=== PATIENT | male | born 1940 | race Caucasian/White ===

== ENCOUNTER 2018-12-05 12:43 | Emergency (ER) | payer OTHER, BC ==
--- NOTE | 2018-12-05 14:08 | RAD REPORT ---
EXAM DESCRIPTION: RAD - Wrist Right 3 View - 12/05/2018 2:00 pm CLINICAL HISTORY: PAIN Trauma, pain and swelling COMPARISON: None FINDINGS: Right wrist and right hand- multiple projections are submitted Scattered areas of moderate osteoarthritic changes seen. No acute fractures demonstrated. Moderate so ft tissue swelling is seen along the dorsum of the wrist and hand. IMPRESSION: No acute fracture is visualized.
[2018-12-05] MEDS ORDERED: TETANUS & DIPHTHERIA TOX,ADULT 0.5 ML VIAL ONE (15:19)
--- NOTE | 2018-12-05 15:26 | ER ---
Nurse's Notes [facility] Name: Marc Dillard Age: 78 yrs Sex: Male : 1940 Arrival Date: 12/05/2018 Time: 12:46 Bed 9 Private MD: Diagnosis: Sprain of unspecified part of unspecified wrist and hand;Finger Laceration Presentation: 12/05 13:08 Presenting complaint: Patient states: I was working on a pipe fence w/ my son and piece ph dropped and bounced off the ground and hit me in the hand." Swelling noted to dorsal aspect of R hand, laceration to index finger, bandage in place, reports decreased ROM in wrist, happened yesterday. Transition of care: patient was not received from another setting of care. Onset of symptoms was December 05, 2018. Risk Assessment: Do you want to hurt yourself or someone else? Patient reports no desire to harm self or others. Initial Sepsis Screen: Does the patient meet any 2 criteria? No. Patient's initial sepsis screen is negative. Does the patient have a suspected source of infection? No. Patient's initial sepsis screen is negative. Care prior to arrival: None. 13:08 Method Of Arrival: Ambulatory ph 13:08 Acuity: RADHA 4 ph Triage Assessment: 15:00 General: Appears in no apparent distress. Behavior is calm, cooperative. Injury iw Description: Laceration sustained to dorsal aspect of middle phalanx of right ring finger. Historical: - Allergies: 13:10 PENICILLINS; ph - Home Meds: 13:10 eye drops post cataract surgery [Active]; ph - PSHx: 13:10 cataract; ph - Immunization history:: Last tetanus immunization: > 10 years ago. - Social history:: Smoking status: Patient uses tobacco products, chewing tobacco. - Ebola Screening: : Patient negative for fever greater than or equal to 101.5 degrees Fahrenheit, and additional compatible Ebola Virus Disease symptoms Patient denies exposure to infectious person Patient denies travel to an Ebola-affected area in the 21 days before illness onset No symptoms or risks identified at this time. Screenin:00 Abuse screen: Denies threats or abuse. Denies injuries from another. Nutritional iw screening: No deficits noted. Tuberculosis screening: No symptoms or risk factors identified. Fall Risk None identified. Assessment: 14:00 General: Appears in no apparent distress. Behavior is calm, cooperative. Pain: iw Complains of pain in right hand. Neuro: Level of Consciousness is awake, alert, obeys commands, Moves all extremities. Derm: Skin is healthy with good turgor. Musculoskeletal: Range of motion: intact in all extremities. Injury Description: Laceration sustained to dorsal aspect of middle phalanx of right ring finger. Vital Signs: 13:11 BP 148 / 69; Pulse 80; Resp 18; Temp 97.9; Pulse Ox 95% on R/A; Weight 88.45 kg; Height ph 5 ft. 9 in. (175.26 cm); Pain 2/10; 13:11 Body Mass Index 28.80 (88.45 kg, 175.26 cm) ph ED Course: 12:46 Patient arrived in ED. tw3 13:10 Triage completed. ph 13:10 Patient has correct armband on for positive identification. iw 13:11 Arm band placed on Patient placed. ph 13:57 XRAY Wrist RIGHT 3 view In Process Unspecified. EDMS 13:57 XRAY Hand RIGHT 3 View In Process Unspecified. EDMS 14:04 Rosendo Keene PA is PHCP. [facility] 14:04 Roger Mercedes MD is Attending Physician. [facility] 14:09 Maria C Jeronimo, RN is Primary Nurse. iw 15:10 No provider procedures requiring assistance completed. Patient did not have IV access iw during this emergency room visit. 15:24 Benson Calle MD is Referral Physician. [facility] Administered Medications: 15:10 Drug: Tetanus-Diphtheria Toxoid Adult 0.5 ml {Performance Engineer: [employer]. Exp: iw 10/23/2019. Lot #: [id number]. } Route: IM; Site: right deltoid; Outcome: 15:25 Discharge ordered by . [facility] 15:32 Discharged to home ambulatory, with family. iw 15:32 Condition: good 15:32 Discharge instructions given to patient, family, Instructed on discharge instructions, follow up and referral plans. Demonstrated understanding of instructions, follow-up care. 15:34 Patient left the ED. iw Signatures: Dispatcher [employer] EDMS Rosendo Keene PA PA jmm Williams, Irene, RN RN Estee Joshi RN RN Kanwal Ruiz tw3
--- NOTE | 2018-12-05 15:26 | EDPHYS ---
Physician Documentation [facility] Name: Marc Dillard Age: 78 yrs Sex: Male : 1940 Arrival Date: 12/05/2018 Time: 12:46 Bed 9 Private MD: ED Physician Roger Mercedes HPI: 12/05 14:32 This 78 yrs old Male presents to ER via Ambulatory with complaints of Hand jmm Injury. 14:32 The patient or guardian reports injury, pain, swelling. jmm 14:32 Onset: The symptoms/episode began/occurred acutely, yesterday. Modifying factors: The jmm symptoms are alleviated by holding still, the symptoms are aggravated by movement. This is a 78 year old male that presents to the ED with complaints of pain and swelling to his right hand and wrist. Patient states he injured his hand while putting a fence up. Patient states a post fell on his hand. . Historical: - Allergies: 13:10 PENICILLINS; ph - Home Meds: 13:10 eye drops post cataract surgery [Active]; ph - PSHx: 13:10 cataract; ph - Immunization history:: Last tetanus immunization: > 10 years ago. - Social history:: Smoking status: Patient uses tobacco products, chewing tobacco. - Ebola Screening: : Patient negative for fever greater than or equal to 101.5 degrees Fahrenheit, and additional compatible Ebola Virus Disease symptoms Patient denies exposure to infectious person Patient denies travel to an Ebola-affected area in the 21 days before illness onset No symptoms or risks identified at this time. ROS: 14:32 Constitutional: Negative for fever, chills, and weight loss, Cardiovascular: Negative jmm for chest pain, palpitations, and edema, Respiratory: Negative for shortness of breath, cough, wheezing, and pleuritic chest pain. 14:32 MS/extremity: Positive for pain, swelling. 14:32 Skin: Positive for laceration(s). 14:32 All other systems are negative. Exam: 14:32 Head/Face: atraumatic. Eyes: EOMI, no conjunctival erythema appreciated ENT: Moist jmm Mucus Membranes Neck: Trachea midline, Supple Chest/axilla: Normal chest wall appearance and motion. Cardiovascular: Regular rate and rhythm. No edema appreciated Respiratory: Normal respirations, no respiratory distress appreciated Abdomen/GI: Non distended, soft Back: Normal ROM 14:32 Constitutional: The patient appears in no acute distress, alert, awake. 14:32 Musculoskeletal/extremity: (+) snuff box tenderness, painful flexion of the right wrist, full radial pulse, compartments are soft, NVI. 14:32 Skin: laceration noted to the right 3rd phalanx, no active bleeding appreciated. 14:32 Neuro: Orientation: is normal, Mentation: is normal, Memory: is normal. 14:32 Psych: Behavior/mood is pleasant, cooperative. Vital Signs: 13:11 BP 148 / 69; Pulse 80; Resp 18; Temp 97.9; Pulse Ox 95% on R/A; Weight 88.45 kg; Height ph 5 ft. 9 in. (175.26 cm); Pain 2/10; 13:11 Body Mass Index 28.80 (88.45 kg, 175.26 cm) ph Procedures: 14:32 Splinting: Splint applied to right hand using thumb spica. applied by tech. Examined by sadiq me, post splint application: neurovascular intact, 2+ distal pulses palpable, brisk capillary refill noted, Patient tolerated well. MDM: 14:32 Patient medically screened. sadiq 15:21 Data reviewed: vital signs, nurses notes. Counseling: I had a detailed discussion with sadiq the patient and/or guardian regarding: the historical points, exam findings, and any diagnostic results supporting the discharge/admit diagnosis, radiology results, the need for outpatient follow up, to return to the emergency department if symptoms worsen or persist or if there are any questions or concerns that arise at home. ED course: Patient has snuff box tenderness. Advised to follow up with ortho for reevaluation. Given thumb spica splint. Patient given wound infection return precautions. Patient understood and agrees with the plan of care. . 12/05 13:13 Order name: XRAY Wrist RIGHT 3 view; Complete Time: 14:35 12/05 13:13 Order name: XRAY Hand RIGHT 3 View 12/05 14:36 Order name: Wound Care; Complete Time: 15:33 [facility] 12/05 14:40 Order name: Thumb Spica Splint; Complete Time: 15:33 [facility] Administered Medications: 15:10 Drug: Tetanus-Diphtheria Toxoid Adult 0.5 ml {Director Of Corporate Responsibility: [employer]. Exp: iw 10/23/2019. Lot #: [id number]. } Route: IM; Site: right deltoid; Disposition: 12/05/18 15:25 Discharged to Home. Impression: Sprain of unspecified part of unspecified wrist and hand, Finger Laceration. - Condition is Stable. - Discharge Instructions: Nonsutured Laceration Care, Scaphoid Fracture, Wrist Sprain. - Medication Reconciliation Form, Thank You Letter, Antibiotic Education, Prescription Opioid Use form. - Follow up: Benson Calle MD; When: 2 - 3 days; Reason: Recheck today's complaints, Continuance of care, Re-evaluation by your physician. Addendum: 12/09/2018 20:48 Co-signature as Attending Physician, Roger Mercedes MD. g s Signatures: Dispatcher [employer] EDMS Rosendo Keene PA PA [facility] Maria C Jeronimo RN RN iw Hall, Patricia, RN RN Mago, MD JASON Duran Corrections: (The following items were deleted from the chart) 12/05 14:40 14:36 Splint - Wrist ordered. [facility] 15:26 15:25 12/05/2018 15:25 Discharged to Home. Impression: Sprain of unspecified part of [facility] unspecified wrist and hand. Condition is Stable. Forms are Medication Reconciliation Form, Thank You Letter, Antibiotic Education, Prescription Opioid Use. Follow up: Dr. Benson Calle; When: 2 - 3 days; Reason: Recheck today's complaints, Continuance of care, Re-evaluation by your physician. [facility] 15:34 15:26 12/05/2018 15:25 Discharged to Home. Impression: Sprain of unspecified part of iw unspecified wrist and hand; Finger Laceration. Condition is Stable. Discharge Instructions: Wrist Sprain. Forms are Medication Reconciliation Form, Thank You Letter, Antibiotic Education, Prescription Opioid Use. Follow up: Dr. Benson Calle; When: 2 - 3 days; Reason: Recheck today's complaints, Continuance of care, Re-evaluation by your physician. [facility]
--- NOTE | 2018-12-06 12:53 | RAD REPORT ---
EXAM DESCRIPTION: RAD - Hand Right 3 View - 12/05/2018 1:57 pm CLINICAL HISTORY: PAIN Trauma, pain and swelling COMPARISON: None FINDINGS: Right wrist and right hand- multiple projections are submitted Scattered areas of moderate osteoarthritic changes seen. No acute fractures demonstrated. Moderate so ft tissue swelling is seen along the dorsum of the wrist and hand. IMPRESSION: No acute fracture is visualized.
== END 2018-12-05 15:34 | disposition home or self-care (01) ==
LOC: ER 12:43
DX: S63.91XA Sprain of unspecified part of right wrist and hand, initial encounter (principal); S61.212A Laceration without foreign body of right middle finger without damage to nail, initial encounter; W22.8XXA Striking against or struck by other objects, initial encounter; Y93.89 Activity, other specified; Y92.9 Unspecified place or not applicable; Z23 Encounter for immunization; Z72.0 Tobacco use; Z88.0 Allergy status to penicillin
CPT/HCPCS: 90471; 90714; 99283

== ENCOUNTER 2019-06-07 08:25 | Observation (INO) | payer OTHER ==
--- NOTE | 2019-05-30 13:49 | RAD REPORT ---
EXAM DESCRIPTION: RAD - Chest Pa And Lat (2 Views) - 05/30/2019 1:34 pm CLINICAL HISTORY: preop Chest pain. COMPARISON: Chest Single View dated 10/01/2016 FINDINGS: The lungs are mildly emphysematous but clear. The heart is normal in size. No displaced fr actures. IMPRESSION: Mild COPD.
[2019-05-30 14:23] LABS: Absolute Lymphocytes (CBC) 2.1 K/uL (0.7-4.9); Basophils % 0.9 % (0-1.3); Hematocrit 42.4 % (39.6-49.0); Lymphocytes % 24.9 % (15.3-44.8); MPV 9.8 fL (7.6-11.3); RBC Red Blood Cell Count 4.75 M/uL (4.33-5.43)
[2019-05-30 14:27] LABS: Potassium 3.8 mmol/L (3.5-5.1)
[~2019-06-07 08:25] MED LIST: NA CHLORIDE 0.9% 500 ML ONE
[2019-06-07] MEDS ORDERED: NA CHLORIDE 0.9% 500 ML ONE ×2 (08:44→16:03)
[2019-06-07] MEDS ORDERED: MIDAZOLAM HCL 2 MG/2 ML INJ ONE ×2 (09:43→10:12)
[2019-06-07] MEDS ORDERED: FENTANYL CITR 100 MCG/2 ML ONE (09:43)
[2019-06-07] MEDS ORDERED: HEPA 1000U/500MLS 1,000 UNIT/500 ML BAG IV ONE (09:44)
[2019-06-07] MEDS ORDERED: ATROPINE SULF 1 MG/10 ML SYR IV ONE (09:44)
[2019-06-07] MEDS ORDERED: NA CHLORIDE 0.9% 50 ML ONE (09:44)
[2019-06-07] MEDS ORDERED: NITROGLYCERIN/D5W 25 MG/250 ML BTL IV ONE (09:44)
[2019-06-07] MEDS ORDERED: NITROGLYCERIN 100 MCG/ML SYR (for cath lab use only) IV ONE (09:44)
[2019-06-07] MEDS ORDERED: ASPIRIN 325 MG TAB ONE (10:54)
[2019-06-07] MEDS ORDERED: PRASUGREL (EFFIENT) 10 MG TAB ONE (10:54)
[2019-06-07] MEDS ORDERED: NA CHLORIDE 0.9% 1,000 ML IV SCH (11:00)
[2019-06-07] MEDS ORDERED: MORPHINE 4 MG/ML SYR IV PRN (11:48)
[2019-06-07] MEDS ORDERED: DIAZEPAM 5 MG TABLET PO PRN (11:49)
[2019-06-07] MEDS ORDERED: ONDANSETRON 4 MG/2 ML VIAL IV PRN (11:49)
[2019-06-07] MEDS ORDERED: NITROGLYCERIN 0.4 MG/TAB SL PRN (13:58)
[2019-06-07] MEDS ORDERED: ACETAMINOPHEN 325 MG TABLET PO PRN (13:58)
[2019-06-07] MEDS ORDERED: IBUPROFEN 200 MG TAB PO PRN (14:00)
[2019-06-07 16:29] LABS: Absolute Lymphocytes (CBC) 5.4 K/uL (0.7-4.9); Basophils % 0.7 % (0-1.3); Hematocrit 40.9 % (39.6-49.0); Lymphocytes % 38.2 % (15.3-44.8); MPV 9.4 fL (7.6-11.3)
[2019-06-07] MEDS ORDERED: NA CHLORIDE 0.9% 500 ML IV ONE (17:00)
[2019-06-07 17:01] LABS: Albumin 3.6 g/dL (3.4-5.0); Bilirubin Total 0.4 mg/dL (0.2-1.0); Potassium 3.1 mmol/L (3.5-5.1); Protein, Total 6.7 g/dL (6.4-8.2)
[2019-06-07] MEDS: NA CHLORIDE 0.9% 1,000 ML IV SCH (17:19)
[2019-06-07] MEDS ORDERED: POTASSIUM CL SA 10 MEQ TAB PO ONE (20:00)
[2019-06-07] MEDS ORDERED: ATORVASTATIN 80 MG TAB PO SCH (21:00)
[2019-06-08] MEDS: NA CHLORIDE 0.9% 1,000 ML IV SCH ×2 (00:12→08:45)
[2019-06-08 05:34] LABS: Absolute Lymphocytes (CBC) 2.2 K/uL (0.7-4.9); Basophils % 0.4 % (0-1.3); Hematocrit 41.9 % (39.6-49.0); Lymphocytes % 23.9 % (15.3-44.8); MPV 9.3 fL (7.6-11.3); RBC Red Blood Cell Count 4.68 M/uL (4.33-5.43)
--- NOTE | 2019-06-08 05:43 | OP ---
Surgeon: Keshav Lyman MD Safety Assistant: Smita Carmichael. He will remain overnight in the hospital and go home tomorrow. Procedure Performed: Left heart catheterization, selective coronary arteriogram, and primary stent o f the mid RCA. History Of Present Illness: Mr. Dillard is 79, has a history of tobacco abuse, hypertension, came i nto my office with chest pain, had a positive stress test and he was scheduled for a heart catheteriz ation today, 06/07/2019. Indication Of The Procedure: Chest pain and positive stress test. Procedure In Detail: The patient was prepped and draped in the routine sterile fashion. Given Verse d for sedation. A 6-Georgian sheath introduced in the right common femoral artery successfully. JudAlerts ns catheter left and right were used to inject the left main and the right main respectively. He has severe diffuse plaque buildup in the left system. LAD and circumflex without any focal stenosis. T he RCA had about a 70%-80% mid RCA lesion. A JR4 guide 6-Georgian with side holes was used to cannulat e the right main. A [place] wire was used to cross the lesion. A 2.5 x 12 Synergy stent was placed a t 14 atmosphere with excellent result 0% residual. The patient tolerated the procedure well. He rec eived aspirin, Effient, and Angiomax during the procedure. Complications: There were no complications. Blood Loss: 5 mL. Anesthesia: Total conscious sedation was 30 minutes. Final Diagnosis: Coronary artery disease status post successful RCA stent. The patient will go home on aspirin, Plavix, low-dose beta-joey, and Lipitor 80 mg daily. BRIAN/ANDRIY Voice ID: [id number] Report ID: [id number]
[2019-06-08 05:44] LABS: BUN Blood Urea Nitrogen 21 mg/dL (7-18); Bicarbonate 27 mmol/L (21-32); Glucose Level 86 mg/dL (74-106); HDL Cholesterol 54 mg/dL (40-60); LDL Cholesterol, Calculated 89 (<130); Potassium 4.1 mmol/L (3.5-5.1); Sodium Level 142 mmol/L (136-145)
[2019-06-08 05:47] VITALS: BMI 25.2
--- NOTE | 2019-06-08 07:25 | EKG ---
Test Date: 2019-06-07 Test Time: 15:52:36 Monkey Trainer: RUIZ MEASUREMENT RESULTS: Intervals: Rate: 51 [place]: 178 QRSD: 136 QT: 456 QTc: 420 [place]: P: 60 [place]: 178 QRS: 73 T: 59 INTERPRETIVE STATEMENTS: Sinus bradycardia Right bundle branch block Abnormal ECG Compared to ECG 10/01/2016 01:19:22 Right bundle-branch block now present Sinus rhythm no longer present Myocardial infarct finding no longer present Electronically Signed On 06-08-19 07:23:38 CORE DIPPER by Keshav Lyman
[2019-06-08 07:47] VITALS: O2SAT 99
[2019-06-08 07:59] VITALS: TEMP 98.4
[2019-06-08] MEDS ORDERED: AMLODIPINE 10 MG TAB PO SCH (09:00)
[2019-06-08] MEDS ORDERED: ASPIRIN 81 MG CHEWABLE TABLET PO SCH (09:00)
[2019-06-08] MEDS ORDERED: CLOPIDOGREL 75 MG TABLET PO SCH (09:00)
[2019-06-08 09:20] VITALS: BP 125/67
--- NOTE | 2019-06-08 11:43 | PN ---
Date of Progress Note: 06/08/2019 Mr. Dillard had an outpatient catheterization yesterday with an RCA stent. In the evening, he had 2 episodes of what sounds like vasovagal syncope, orthostatic hypotension with bradycardia and hypoten ap resolved with IV fluids. CBC showed a hemoglobin of 14.2. There were no groin complications. Overnight, he had no symptoms. This morning, blood pressure is good. His heart rate is good. He hall s no chest pain. His groin appeared intact. He has already walked and ambulated around the hallways 4 times this morning without any symptoms. I will send him home on his home medicines, which are No rvasc, aspirin, Lipitor 80 mg daily as well as Plavix 75 mg daily. Case was discussed with him, alix brandon, and his son. I will see him in the office in 2 weeks. BRIAN/ANDRIY Voice ID: [id number] Report ID: [id number]
--- NOTE | 2019-06-08 18:37 | EKG ---
Test Date: 2019-06-08 Test Time: 07:00:19 System Dispatcher: ELIJAH MEASUREMENT RESULTS: Intervals: Rate: 63 [place]: 172 QRSD: 134 QT: 424 QTc: 433 [place]: P: 10 [place]: 172 QRS: 13 T: 18 INTERPRETIVE STATEMENTS: Normal sinus rhythm Right bundle branch block Septal infarct, age undetermined Abnormal ECG Compared to ECG 06/07/2019 15:52:36 Myocardial infarct finding now present Sinus bradycardia no longer present Electronically Signed On 06-08-19 18:35:06 TUNNEL MUCKER by Keshav Lyman
== END 2019-06-08 09:25 | disposition home or self-care (01) ==
LOC: CCL 08:25 → 4TH 11:07 → 3RD-ICU 16:04 → INTOOBSV 16:04 → CCL 16:32
DX: I25.10 Atherosclerotic heart disease of native coronary artery without angina pectoris (principal); Z87.891 Personal history of nicotine dependence; I10 Essential (primary) hypertension; I95.1 Orthostatic hypotension; R00.1 Bradycardia, unspecified
CPT/HCPCS: 36415; 71046; 80048; 80053; 80061; 82947; 85025; 85347; 85610; 85730; 93005; 93454; C1725; C1760; C1893; C9600; G0378; J0583; J2250; J3010; J7030; J7040

== ENCOUNTER 2019-10-31 09:54 | Emergency (ER) | payer OTHER ==
--- NOTE | 2019-10-31 10:59 | RAD REPORT ---
EXAM DESCRIPTION: CT - Head Brain Wo Cont - 10/31/2019 10:49 am CLINICAL HISTORY: Syncope COMPARISON: None. TECHNIQUE: Computed axial tomography of the head was obtained. IV contrast was not requested. All CT scans are performed using dose optimization technique as appropriate and may include automated exposure control or mA/KV adjustment according to patient size. FINDINGS: An intracranial bleed is not seen . The ventricles are normal in caliber. No extra-axial fluid collection is noted. Fluid within the sinuses/ mastoids is not seen. IMPRESSION: No acute intracranial abnormality is seen. If patient's symptoms persist MRI of the bra in would be recommended.
[2019-10-31 11:07] LABS: Absolute Lymphocytes (CBC) 1.8 K/uL (0.7-4.9); Basophils % 0.7 % (0-1.3); Hematocrit 45.3 % (39.6-49.0); Lymphocytes % 12.4 % (15.3-44.8); MPV 9.2 fL (7.6-11.3); RBC Red Blood Cell Count 5.18 M/uL (4.33-5.43)
[2019-10-31 11:09] LABS: Protime INR 1.03
[2019-10-31 11:31] LABS: ALT/SGPT 28 U/L (12-78); AST/SGOT 22 U/L (15-37); Albumin 3.5 g/dL (3.4-5.0); Alkaline Phosphatase 87 U/L (45-117); BUN Blood Urea Nitrogen 23 mg/dL (7-18); Bicarbonate 27 mmol/L (21-32); Bilirubin Direct 0.1 mg/dL (0-0.2); Bilirubin Total 0.4 mg/dL (0.2-1.0); Glucose Level 97 mg/dL (74-106); Magnesium 2.1 mg/dL (1.8-2.4); NT PRO-BNP 450 pg/mL (<450); Potassium 4.3 mmol/L (3.5-5.1); Protein, Total 6.7 g/dL (6.4-8.2); Sodium Level 144 mmol/L (136-145); Troponin (Emerg Dept Use Only) < 0.02 ng/mL (0.0-0.045)
--- NOTE | 2019-10-31 11:49 | RAD REPORT ---
EXAM DESCRIPTION: Aurelia Single View10/31/2019 11:17 am CLINICAL HISTORY: Palpitations COMPARISON: 2018 FINDINGS: The mediastinum appears more prominent than on the prior exam The lungs appear clear of acute infiltrate. The heart is probably upper limits normal size IMPRESSION: The mediastinum appears more prominent on the prior exam. This may simply be secondary to positioning and technique. As lymphadenopathy can have this appearance it is recommended that the patient have PA and lateral chest films for further evaluation
[2019-10-31] MEDS ORDERED: METOPROLOL TAR 50 MG TAB ONE (12:02)
[2019-10-31] MEDS ORDERED: METOPROLOL TARTRATE 5 MG/5 ML INJ IV ONE (12:02)
--- NOTE | 2019-10-31 12:12 | ER ---
Nurse's Notes [facility] Name: Marc Dillard Age: 79 yrs Sex: Male : 1940 Arrival Date: 10/31/2019 Time: 09:53 Bed 6 Private MD: Diagnosis: Syncope and collapse;Atrial fibrillation and flutter-new onset, RVR Presentation: 10/30 09:53 Chief complaint: EMS states: SYNCOPE AFTER MOWING LAWN, DENIES FALL. Coronavirus bp screen: Proceed with normal triage. Ebola Screen: No symptoms or risks identified at this time. Initial Sepsis Screen: Does the patient meet any 2 criteria? No. Patient's initial sepsis screen is negative. Does the patient have a suspected source of infection? No. Patient's initial sepsis screen is negative. Risk Assessment: Do you want to hurt yourself or someone else? Patient reports no desire to harm self or others. Onset of symptoms is unknown. 09:53 Method Of Arrival: EMS: [facility] bp 09:53 Acuity: RADHA 3 bp 09:53 Care prior to arrival: IV initiated. 18 GA, in the right antecubital area, Glucose bp check: 130. Triage Assessment: 09:56 General: Appears in no apparent distress. comfortable, Behavior is calm, cooperative, bp appropriate for age. Pain: Denies pain. EENT: No deficits noted. Neuro: Level of Consciousness is awake, alert, obeys commands, Oriented to person, place, time, situation, Appropriate for age Reports a syncopal episode. Cardiovascular: Rhythm is atrial fibrillation. Respiratory: No deficits noted. GI: No signs and/or symptoms were reported involving the gastrointestinal system. : No signs and/or symptoms were reported regarding the genitourinary system. Derm: No deficits noted. Musculoskeletal: No deficits noted. Historical: - Allergies: 09:56 PENICILLINS; bp - Home Meds: 09:56 aspirin 81 mg Oral chew 1 tab once daily [Active]; amlodipine oral [Active]; Plavix 75 bp mg Oral tab 1 tab once daily [Active]; - PMHx: 09:56 High Cholesterol; Hypertension; bp - Immunization history:: Adult Immunizations up to date. - Social history:: Smoking status: . - Family history:: not pertinent. Screenin:59 Abuse screen: Denies threats or abuse. Denies injuries from another. Nutritional bp screening: No deficits noted. Tuberculosis screening: No symptoms or risk factors identified. Fall Risk No fall in past 12 months (0 pts). No secondary diagnosis (0 pts). Assessment: 09:58 General: SEE TRIAGE NOTE. Neuro: Level of Consciousness is awake, alert, obeys bp commands, Oriented to person, place, time, situation, Appropriate for age. Cardiovascular: Rhythm is atrial fibrillation. 11:01 Reassessment: PT RETURNED FROM CT, ALL CURRENT ORDERS IN PROCESS. VS STABLE ON MONITOR. bp 12:31 Reassessment: PT D/C HOME AMBULATORY WITH FAMILY, DX WITH ATRIAL FIBRILLATION. bp Vital Signs: 09:53 Weight 80.74 kg; Height 5 ft. 9 in. (175.26 cm); bp 09:57 BP 104 / 73; Pulse 81; Resp 19; Pulse Ox 97% ; bp 11:01 BP 128 / 70; Pulse 95; Resp 15; Pulse Ox 97% ; bp 11:59 BP 116 / 72; Pulse 102; Resp 22; Pulse Ox 99% ; bp 12:31 BP 123 / 79; Pulse 85; Resp 19; Pulse Ox 97% ; bp 09:53 Body Mass Index 26.29 (80.74 kg, 175.26 cm) bp ED Course: 09:52 EKG done, by polysomnographic technologist. reviewed by Aneudy Yung MD. at1 09:53 Patient arrived in ED. bp 09:54 Triage completed. bp 09:55 Maintain EMS IV. Dressing intact. Good blood return noted. Site clean \T\ dry. Gauge \T\ bp site: 18 GAUGE R AC . 09:56 Arm band placed on. bp 09:57 Aneudy Yung MD is Attending Physician. zelda 09:59 Patient has correct armband on for positive identification. Bed in low position. Call bp light in reach. Side rails up X2. 10:49 CT Head Brain wo Cont In Process Unspecified. EDMS 11:01 Sriram Griffith, GRAZYNA is Primary Nurse. bp 11:17 XRAY Chest (1 view) In Process Unspecified. EDMS 12:10 Keshav Lyman MD is Referral Physician. zedla 12:32 No provider procedures requiring assistance completed. IV discontinued, intact, bp bleeding controlled, No redness/swelling at site. Pressure dressing applied. Administered Medications: 12:00 Drug: Lopressor (metoprolol TARTRATE) 50 mg Route: PO; bp 12:33 Follow up: Response: No adverse reaction bp 12:00 Drug: Lopressor 2.5 mg Route: IVP; Site: right antecubital; bp 12:33 Follow up: Response: No adverse reaction bp 12:19 Drug: Lopressor 2.5 mg Route: IVP; Site: right antecubital; bp 12:34 Follow up: Response: No adverse reaction bp 12:30 Drug: Xarelto 20 mg Route: PO; bp 12:34 Follow up: Response: No adverse reaction bp Outcome: 12:11 Discharge ordered by MD. ndiaye 12:33 Discharged to home ambulatory, with family. bp 12:33 Condition: stable 12:33 Discharge instructions given to patient, Instructed on discharge instructions, follow up and referral plans. medication usage, Demonstrated understanding of instructions, follow-up care, medications, Prescriptions given X 2. 12:34 Patient left the ED. bp Signatures: Dispatcher [employer] EDMS Aneudy Yung MD MD cha Gonzales, Amanda, ramp and cargo supervisor EKG Tat1 Sriram Griffith, RN RN bp Corrections: (The following items were deleted from the chart) 09:59 09:56 Cardiovascular: Rhythm is sinus rhythm bp bp
--- NOTE | 2019-10-31 12:12 | EDPHYS ---
Physician Documentation [facility] Name: Marc Dillard Age: 79 yrs Sex: Male : 1940 Arrival Date: 10/31/2019 Time: 09:53 Bed 6 Private MD: ED Physician Aneudy Yung HPI: 10/30 10:40 This 79 yrs old Male presents to ER via EMS with complaints of Syncope. zelda 10:40 The patient has experienced syncope, became unresponsive. Onset: The symptoms/episode zelda began/occurred just prior to arrival. Duration: This was a single episode, that lasted 15 second(s). Context: the episode(s) was witnessed, by family, . Associated injury: The patient did not suffer any apparent associated injury. Associated signs and symptoms: Pertinent positives: dizziness, lightheadedness, palpitations. Current symptoms: Currently, the patient is not experiencing any symptoms, the patient feels back to baseline. The patient has experienced similar episodes in the past, a few times. Historical: - Allergies: 09:56 PENICILLINS; bp - Home Meds: 09:56 aspirin 81 mg Oral chew 1 tab once daily [Active]; amlodipine oral [Active]; Plavix 75 bp mg Oral tab 1 tab once daily [Active]; - PMHx: 09:56 High Cholesterol; Hypertension; bp - Immunization history:: Adult Immunizations up to date. - Social history:: Smoking status: . - Family history:: not pertinent. ROS: 10:40 Constitutional: Negative for fever, chills, and weight loss, Eyes: Negative for injury, zelda pain, redness, and discharge, ENT: Negative for injury, pain, and discharge, Neck: Negative for injury, pain, and swelling, Respiratory: Negative for shortness of breath, cough, wheezing, and pleuritic chest pain, Abdomen/GI: Negative for abdominal pain, nausea, vomiting, diarrhea, and constipation, Back: Negative for injury and pain, : Negative for injury, bleeding, discharge, and swelling, MS/Extremity: Negative for injury and deformity, Skin: Negative for injury, rash, and discoloration, Neuro: Negative for headache, weakness, numbness, tingling, and seizure, Psych: Negative for depression, anxiety, suicide ideation, homicidal ideation, and hallucinations, Allergy/Immunology: Negative for hives, rash, and allergies, Endocrine: Negative for neck swelling, polydipsia, polyuria, polyphagia, and marked weight changes. 10:40 Cardiovascular: Positive for palpitations. 10:40 Neuro: Negative for altered mental status, dizziness, gait disturbance, headache, numbness, seizure activity, speech changes, syncope at home. Exam: 10:40 Constitutional: This is a well developed, well nourished patient who is awake, alert, zelda and in no acute distress. Head/Face: Normocephalic, atraumatic. Eyes: Pupils equal round and reactive to light, extra-ocular motions intact. Lids and lashes normal. Conjunctiva and sclera are non-icteric and not injected. Cornea within normal limits. Periorbital areas with no swelling, redness, or edema. ENT: Nares patent. No nasal discharge, no septal abnormalities noted. Tympanic membranes are normal and external auditory canals are clear. Oropharynx with no redness, swelling, or masses, exudates, or evidence of obstruction, uvula midline. Mucous membranes moist. Neck: Trachea midline, no thyromegaly or masses palpated, and no cervical lymphadenopathy. Supple, full range of motion without nuchal rigidity, or vertebral point tenderness. No Meningismus. Chest/axilla: Normal chest wall appearance and motion. Nontender with no deformity. No lesions are appreciated. Respiratory: Lungs have equal breath sounds bilaterally, clear to auscultation and percussion. No rales, rhonchi or wheezes noted. No increased work of breathing, no retractions or nasal flaring. Abdomen/GI: Soft, non-tender, with normal bowel sounds. No distension or tympany. No guarding or rebound. No evidence of tenderness throughout. Back: No spinal tenderness. No costovertebral tenderness. Full range of motion. Male : Normal genitalia with no discharge or lesions. Skin: Warm, dry with normal turgor. Normal color with no rashes, no lesions, and no evidence of cellulitis. MS/ Extremity: Pulses equal, no cyanosis. Neurovascular intact. Full, normal range of motion. Neuro: Awake and alert, GCS 15, oriented to person, place, time, and situation. Cranial nerves II-XII grossly intact. Motor strength 5/5 in all extremities. Sensory grossly intact. Cerebellar exam normal. Normal gait. Psych: Awake, alert, with orientation to person, place and time. Behavior, mood, and affect are within normal limits. 10:40 Cardiovascular: Rate: tachycardic, Rhythm: irregularly irregular, Pulses: Pulses are 4+ in bilateral radial, brachial, femoral, popliteal, posterior tibial and and dorsalis pedis arteries.. Heart sounds: normal, Edema: is not appreciated, JVD: is not appreciated. Vital Signs: 09:53 Weight 80.74 kg; Height 5 ft. 9 in. (175.26 cm); bp 09:57 BP 104 / 73; Pulse 81; Resp 19; Pulse Ox 97% ; bp 11:01 BP 128 / 70; Pulse 95; Resp 15; Pulse Ox 97% ; bp 11:59 BP 116 / 72; Pulse 102; Resp 22; Pulse Ox 99% ; bp 12:31 BP 123 / 79; Pulse 85; Resp 19; Pulse Ox 97% ; bp 09:53 Body Mass Index 26.29 (80.74 kg, 175.26 cm) bp MDM: 09:57 Patient medically screened. [facility] 10:42 Data reviewed: vital signs, nurses notes, lab test result(s), EKG, radiologic studies, zelda plain films. 10:49 Data interpreted: phototypesetting equipment monitor: rate is 90 beats/min, rhythm is atrial fibrillation. [facility] ED course: pt mowed today, was having coffee, had syncopal episode, 15 sec, non focal neuro, no hx of a fib, hx of similar episodes in the past, no work up done. 12:08 Physician consultation: Keshav Lyman MD give xarelto 20mg daily, lopressor 25 mg po zelda bid, follow up in hs office today or tomorrow. plan discusrd and approved. 10/30 10:39 Order name: Basic Metabolic Panel; Complete Time: 11:46 [facility] 10/30 10:39 Order name: CBC with Diff; Complete Time: 11:46 [facility] 10/30 10:39 Order name: LFT's; Complete Time: 11:46 [facility] 10/30 10:39 Order name: Magnesium; Complete Time: 11:46 [facility] 10/30 10:39 Order name: NT PRO-BNP; Complete Time: 11:46 [facility] 10/30 10:39 Order name: PT-INR; Complete Time: 11:46 [facility] 10/30 10:39 Order name: Troponin (emerg Dept Use Only); Complete Time: 11:46 [facility] 10/30 10:39 Order name: XRAY Chest (1 view) [facility] 10/30 10:39 Order name: TSH; Complete Time: 11:46 [facility] 10/30 10:39 Order name: CT Head Brain wo Cont; Complete Time: 11:46 [facility] 10/30 10:39 Order name: EKG; Complete Time: 10:41 [facility] 10/30 10:39 Order name: Cardiac monitoring; Complete Time: 11:00 [facility] 10/30 10:39 Order name: EKG - Nurse/Tech; Complete Time: 11:00 [facility] 10/30 10:39 Order name: IV Saline Lock; Complete Time: 11:00 [facility] 10/30 10:39 Order name: Labs collected and sent; Complete Time: 11:00 [facility] 10/30 10:39 Order name: O2 Per Protocol; Complete Time: 11:00 [facility] 10/30 10:39 Order name: O2 Sat Monitoring; Complete Time: 11:00 [facility] Administered Medications: 12:00 Drug: Lopressor (metoprolol TARTRATE) 50 mg Route: PO; bp 12:33 Follow up: Response: No adverse reaction bp 12:00 Drug: Lopressor 2.5 mg Route: IVP; Site: right antecubital; bp 12:33 Follow up: Response: No adverse reaction bp 12:19 Drug: Lopressor 2.5 mg Route: IVP; Site: right antecubital; bp 12:34 Follow up: Response: No adverse reaction bp 12:30 Drug: Xarelto 20 mg Route: PO; bp 12:34 Follow up: Response: No adverse reaction bp Disposition: 10/31/19 12:11 Discharged to Home. Impression: Syncope and collapse, Atrial fibrillation and flutter - new onset, RVR. - Condition is Stable. - Discharge Instructions: Atrial Fibrillation, Syncope, Syncope, [id number]. - Prescriptions for Lopressor 50 mg Oral tablet - take 1 tablet by ORAL route 2 times per day with meals; 40 tablet. Xarelto 20 mg Oral Tablet - take 1 tablet by ORAL route once daily; 20 tablet. - Medication Reconciliation Form, Thank You Letter, Antibiotic Education, Prescription Opioid Use form. - Follow up: Private Physician; When: 2 - 3 days; Reason: Recheck today's complaints, Continuance of care, Re-evaluation by your physician. Follow up: Keshav Lyman MD; When: Today; Reason: Recheck today's complaints, Continuance of care, Re-evaluation by your physician. - Problem is new. - Symptoms have improved. Signatures: Dispatcher [employer] EDAneudy Kuhn MD MD cha Peltier, Brian, RN RN bp Corrections: (The following items were deleted from the chart) 12:34 12:11 10/31/2019 12:11 Discharged to Home. Impression: Syncope and collapse; Atrial bp fibrillation and flutter - new onset, RVR. Condition is Stable. Forms are Medication Reconciliation Form, Thank You Letter, Antibiotic Education, Prescription Opioid Use. Follow up: Private Physician; When: 2 - 3 days; Reason: Recheck today's complaints, Continuance of care, Re-evaluation by your physician. Follow up: Keshav Lyman; When: Today; Reason: Recheck today's complaints, Continuance of care, Re-evaluation by your physician. Problem is new. Symptoms have improved. zelda
[2019-10-31] MEDS ORDERED: RIVAROXABAN 20 MG TABLET PO ONE (12:30)
[2019-10-31 12:44] VITALS: BP 123/79; O2SAT 97
--- NOTE | 2019-10-31 16:16 | EKG ---
Test Date: 2020-03-01 Test Time: 09:52:55 Steam Hoist Operator: ELIJAH MEASUREMENT RESULTS: Intervals: Rate: 84 CO: QRSD: 92 QT: 386 QTc: 456 [place]: P: CO: QRS: 49 T: 45 INTERPRETIVE STATEMENTS: Atrial fibrillation with premature ventricular or aberrantly conducted complexes Nonspecific ST and T wave abnormality, probably digitalis effect Abnormal ECG Compared to ECG 06/08/2019 07:00:19 Ventricular premature complex(es) now present ST (T wave) deviation now present Sinus rhythm no longer present Right bundle-branch block no longer present Myocardial infarct finding no longer present Electronically Signed On 10-31-19 16:15:58 CDT by Keshav Lyman
== END 2019-10-31 12:34 | disposition home or self-care (01) ==
LOC: ER 09:54
DX: I48.20 Chronic atrial fibrillation, unspecified (principal); I48.92 Unspecified atrial flutter; I10 Essential (primary) hypertension; E78.00 Pure hypercholesterolemia, unspecified; Z79.01 Long term (current) use of anticoagulants; Z79.82 Long term (current) use of aspirin
CPT/HCPCS: 36415; 70450; 71045; 80048; 80076; 83735; 83880; 84443; 84484; 85025; 85610; 93005; 96374; 99284

== ENCOUNTER 2020-09-14 09:56 | Day surgery (SDC) | payer OTHER ==
[2020-09-13 10:31] LABS: Absolute Lymphocytes (CBC) 2.2 K/uL (0.7-4.9); Basophils % 0.7 % (0-1.3); Hematocrit 43.8 % (39.6-49.0); MPV 9.2 fL (7.6-11.3); RBC Red Blood Cell Count 4.88 M/uL (4.33-5.43)
[2020-09-13 10:44] LABS: Potassium 4.4 mmol/L (3.5-5.1)
[2020-09-13 10:55] LABS: Protime INR 1.01
--- NOTE | 2020-09-13 10:56 | RAD REPORT ---
EXAM DESCRIPTION: RAD - Chest Pa And Lat (2 Views) - 09/13/2020 10:09 am CLINICAL HISTORY: pre op, pending cardiac catheterization COMPARISON: October 2019 TECHNIQUE: Frontal and lateral views of the chest were obtained. FINDINGS: The lungs are clear. Interstitial pattern matches comparison. Failure or volume overload. Heart size is normal and central vasculature is within normal limits. No pleural effusion or pneumo thorax seen. No acute bony finding noted. No aortic abnormality. IMPRESSION: No acute cardiopulmonary process. No significant change from comparison study.
[2020-09-14] MEDS ORDERED: NA CHLORIDE 0.9% 500 ML ONE (10:29)
[2020-09-14] MEDS ORDERED: LIDOCAINE 1% 20 ML MDV ONE (12:26)
[2020-09-14] MEDS ORDERED: HEPA 1000U/500MLS 1,000 UNIT/500 ML BAG IV ONE (12:26)
[2020-09-14] MEDS ORDERED: NA CHLORIDE 0.9% 0 ML ONE (12:30)
[2020-09-14] MEDS ORDERED: ATROPINE SULF 1 MG/10 ML SYR IV ONE (12:30)
[2020-09-14] MEDS ORDERED: MIDAZOLAM HCL 2 MG/2 ML INJ ONE ×2 (12:30→12:34)
[2020-09-14] MEDS ORDERED: NITROGLYCERIN 100 MCG/ML SYR (for cath lab use only) IV ONE (12:30)
[2020-09-14] MEDS ORDERED: FENTANYL CITR 100 MCG/2 ML ONE ×2 (12:30→12:58)
[2020-09-14] MEDS ORDERED: NITROGLYCERIN/D5W 0 MG/0 ML BTL IV ONE (12:31)
--- NOTE | 2020-09-14 13:55 | OP ---
Surgeon: Keshav Lyman MD Blood Bank Specialist: Mr. Fry. The patient remained on bedrest in the hospital for 2 hours. He will go home and he will await a rhys l from the surgeons in the near future. Indication: Mr. Marc Dillard is admitted to my service as an outpatient on 09/14/2020 because of unstable angina. Description Of Procedure: The patient was brought to the cath lab tech as an outpatient, prepped and drap ed in the routine sterile fashion. Given Versed and fentanyl for sedation. A 6-Faroese sheath was in troduced in the right common femoral artery after 10 cc of xylocaine and using the Seldinger techniqu e. Angiography there was normal. [employer] was used to close the case. Heart catheterization was d one using the JL4 and JR4 respectively. The left main was normal. The proximal LAD has some proxima l plaquing, however, the mid LAD had about a 99% long stenosis with WANDA 2 flow. The vessel was abou t 2 mm distally with a 70% large diagonal stenosis and 90% ostial ramus, 80% distal circumflex, and 8 0% distal RCA. He appeared to be codominant. There were no complications. Blood Loss: 5 mL. Final Diagnosis: Severe coronary artery disease. Plan: For possible CABG in [place]. I will make an arrangement for that after the surgeon reviews t he CT. Anesthesia: Total conscious sedation was 45 minutes. BRIAN/ANDRIY Voice ID: [id number] Report ID: [id number]
[2020-09-14 14:23] VITALS: TEMP 97.3; O2SAT 98
[2020-09-14 15:00] VITALS: BP 155/84
== END 2020-09-14 15:00 | disposition home or self-care (01) ==
LOC: CCL 09:56
DX: I25.110 Atherosclerotic heart disease of native coronary artery with unstable angina pectoris (principal); I65.22 Occlusion and stenosis of left carotid artery; I70.1 Atherosclerosis of renal artery; I48.0 Paroxysmal atrial fibrillation; I10 Essential (primary) hypertension; E78.2 Mixed hyperlipidemia; R53.83 Other fatigue; Z20.822 Contact with and (suspected) exposure to COVID-19
CPT/HCPCS: 93005; 85025; 80048; 36415; 85610; 85730; 71046; 93454; U0002; C1893; J2250 ×2; J3010 ×2; J7040; J1644; J0583

== ENCOUNTER 2021-05-27 05:46 | Emergency (ER) | payer OTHER ==
[2021-05-27 07:17] LABS: Absolute Lymphocytes (CBC) 1.4 K/uL (0.7-4.9); Basophils % 0.4 % (0-1.3); Hematocrit 38.4 % (39.6-49.0); Lymphocytes % 10.6 % (15.3-44.8); MPV 9.2 fL (7.6-11.3)
[2021-05-27 07:31] LABS: Albumin 2.9 g/dL (3.4-5.0); Bilirubin Direct 0.2 mg/dL (0-0.2); Bilirubin Total 0.6 mg/dL (0.2-1.0); Potassium 3.9 mmol/L (3.5-5.1); Protein, Total 6.7 g/dL (6.4-8.2); Uric Acid 5.9 mg/dL (3.5-7.2)
[2021-05-27] MEDS ORDERED: FENTANYL CITR 100 MCG/2 ML ONE (08:01)
[2021-05-27] MEDS ORDERED: ONDANSETRON 4 MG/2 ML VIAL ONE (08:01)
--- NOTE | 2021-05-27 08:12 | RAD REPORT ---
EXAM DESCRIPTION: CTSpine Lumbar Wo Con05/27/2021 7:26 am CLINICAL HISTORY: Radiculopathy and back pain COMPARISON: None TECHNIQUE: Computed axial tomography lumbar spine was obtained with coronal and sagittal reconstruct ion. All CT scans are performed using dose optimization technique as appropriate and may include automated exposure control or mA/KV adjustment according to patient size. FINDINGS: No fracture seen. No dislocation Calcification of ligamentum flavum involves the lower thoracic spine. Disc bulge, osteophytes L1-2 result in narrowing of thecal sac to 9 millimeters. Mild narrowing of th e neural foramina Vacuum phenomena L2-3. Slight anterior subluxation of L2 on L3. Disc bulge, ligamentum flavum and fac et hypertrophy. The thecal sac measures 6 millimeters. Left lateral disc herniation is present. Moder ate narrowing of the right and marked narrowing left neural foramina Disc bulge, osteophytes, ligamentum flavum and facet hypertrophy at L3-4. Thecal sac measures 7.5 mil limeters. Marked narrowing of the neural foramina bilaterally. L4-5 disc is thinned with vacuum phenomena. Slight posterior subluxation L4 on L5. Disc bulge. Marked narrowing of the neural foramina bilaterally. Mild narrowing of the thecal sac. Mild spondylosis L5-S1 IMPRESSION: Negative for a lumbar fracture. Spondylosis L2-3 with small left lateral disc herniation. Moderate central spinal stenosis Spondylosis L3-4 and L4-5 resulting in marked bilateral foraminal stenosis
[2021-05-27 10:46] LABS: Urine Blood Negative (Negative); Urine Glucose Negative (Negative); Urine Protein 1+ (Negative); Urine Specific Gravity 1.025 (1.005-1.030); Urine pH 5.5 (5.0-7.0)
--- NOTE | 2021-05-27 13:38 | RAD REPORT ---
EXAM DESCRIPTION: MRI - Lumbar Spine Daphne Colon- 05/27/2021 1:10 pm CLINICAL HISTORY: Numbness/tingling;Pain;Lower back pain Pain, radiculopathy COMPARISON: No comparisons FINDINGS: Vertebral body heights are within normal limits. No aggressive marrow pattern is observed. No fracture is suspected. The conus medullaris terminates at a normal level. No thickening of the cauda equina or clumping of n erve roots seen. L1-2 level: Mild posterior disc bulge is seen with [id number] facet and ligamentum flavum hyper trophy. Central canal is mildly narrowed. There is [id number] narrowing of the left exit forame n. L2-3 level: Moderate posterior disc bulge is seen with moderate facet and ligamentum flavum hypertrop hy. Moderate central canal stenosis is present with narrowing of both lateral recesses. Both exit for yokasta are mildly narrowed. L3-4 level: Mild posterior disc bulge is present. Small central subligamentous disc extrusion is pres ent extending superiorly 2-3 millimeters. Moderate facet hypertrophy is noted bilaterally with ligame ntum flavum hypertrophy. The central canal is mildly narrowed. The anterior inferior aspects of both exit foramina are mildly narrowed. L4-5 level: Large left paracentral/foraminal disc extrusion is present measuring 5-6 mm in anterior-p osterior dimension. This results in left lateral recess stenosis and left exit foraminal stenosis. L5-S1 level: No significant findings. IMPRESSION: Multilevel moderately severe spondylosis of the lumbar spine is present. The findings ap pear most severe at L4-5 towards the left with there is left lateral recess and left exit foraminal s tenosis. Moderate spondylosis is also present at L2-3.
--- NOTE | 2021-05-27 13:55 | ER ---
Nurse's Notes [facility] Name: Marc Dillard Age: 81 yrs Sex: Male : 1940 Arrival Date: 05/27/2021 Time: 05:56 Bed 7 Private MD: Diagnosis: Intervertebral disc disorders with radiculopathy, lumbar region Presentation: 05/27 06:00 Chief complaint: Patient states: "I'm just hurting all over, mainly my knees and lower dc2 back today" Is unable to walk due to weakness and pain. Reports this started on Thursday really bad, Has had chronic pain x 5 1/2 months. Is hoping to get an MRI today to see what is going on. 06:00 Coronavirus screen: Vaccine status: Patient reports receiving the 2nd dose of the covid dc2 vaccine. Client denies travel out of the [place] in the last 14 days. At this time, the client does not indicate any symptoms associated with coronavirus-19. Ebola Screen: Patient negative for fever greater than or equal to 101.5 degrees Fahrenheit, and additional compatible Ebola Virus Disease symptoms Patient denies exposure to infectious person. Patient denies travel to an Ebola-affected area in the 21 days before illness onset. Initial Sepsis Screen: Does the patient meet any 2 criteria? No. Patient's initial sepsis screen is negative. Initial Sepsis Screen: Does the patient have a suspected source of infection? No. Patient's initial sepsis screen is negative. Risk Assessment: Do you want to hurt yourself or someone else? Patient reports no desire to harm self or others. Onset of symptoms was May 24, 2021. 06:00 Method Of Arrival: EMS: [facility] dc2 06:00 Acuity: RADHA 3 dc2 Historical: - Allergies: 06:00 PENICILLINS; dc2 - Home Meds: 06:00 simvastatin 40 mg Oral tab once daily [Active]; carvedilol 25 mg oral tab 1 tab 2 times dc2 per day [Active]; aspirin 81 mg Oral TbEC 1 tab once daily [Active]; - PMHx: 06:28 High Cholesterol; Hypertension; dc2 - PSHx: 06:00 Open heart sx; Stented artery; dc2 - Immunization history:: Adult Immunizations up to date, Client reports receiving the 2nd dose of the Covid vaccine, Flu vaccine is up to date. - Social history:: Smoking status: Patient reports use of chewing tobacco. Patient/guardian denies using alcohol, street drugs, IV drugs. Screenin:15 Abuse screen: Denies threats or abuse. Denies injuries from another. Nutritional dc2 screening: No deficits noted. Tuberculosis screening: No symptoms or risk factors identified. Never had TB. Fall Risk None identified. No fall in past 12 months (0 pts). Secondary diagnosis (15 points) No IV (0 pts). Ambulatory Aid- Crutches/Cane/Walker (15 pts). Gait- Impaired (20 pts.). Mental Status- Oriented to own ability (0 pts). Total Neumann Fall Scale indicates High Risk Score (45 or more points). Fall prevention measures have been instituted. Side Rails Up X 2 Frequent Obs/Assessments Occuring Family Present and informed to notify staff if the need to leave the bedside. Assessment: 06:00 General: Appears in no apparent distress. well groomed, Behavior is calm, cooperative. dc2 Pain: Complains of pain in bilateral knees and lower back. 06:00 Neuro: No deficits noted. Level of Consciousness is awake, alert, obeys commands, dc2 Oriented to person, place, time, situation. Cardiovascular: No deficits noted. Denies chest pain, shortness of breath. Respiratory: No deficits noted. Airway is patent Breath sounds are clear bilaterally. GI: No deficits noted. No signs and/or symptoms were reported involving the gastrointestinal system. Bowel sounds present X 4 quads. : Reports urinary frequency, since the last couple of days. Derm: No deficits noted. No signs and/or symptoms reported regarding the dermatologic system. Musculoskeletal: Circulation, motion, and sensation intact. Capillary refill < 3 seconds, is brisk, fingers. toes. Swelling present in Right knee Reports weakness in in legs causing him to not be able to walk with the pain in legs and lower back since Thursday ( this event) Has been having chronic trouble x 5 1/2 months.. Pain is 9 out of 10 on a pain scale. Parent/caregiver report the patient having weakness in legs and is unable to walk with the walker that she bought on Thursday to help him. 07:00 Reassessment: RECD REPORT FROM FELICIA GERONIMO. 81YO WM P/W 5 MONTHS LUMBAR AND KNEE PAIN. CT bp PENDING. 08:00 Reassessment: No changes from previously documented assessment. Patient and/or family ll1 updated on plan of care and expected duration. Pain level reassessed. Patient is alert, oriented x 3, equal unlabored respirations, skin warm/dry/pink. 09:00 Reassessment: No changes from previously documented assessment. Patient and/or family bp updated on plan of care and expected duration. Pain level reassessed. Patient is alert, oriented x 3, equal unlabored respirations, skin warm/dry/pink. 10:00 Reassessment: No changes from previously documented assessment. Patient and/or family bp updated on plan of care and expected duration. Pain level reassessed. PER RADIOLOGY, MRI DELAYED TO NOON. 11:00 Reassessment: No changes from previously documented assessment. Patient and/or family ll1 updated on plan of care and expected duration. Pain level reassessed. Patient is alert, oriented x 3, equal unlabored respirations, skin warm/dry/pink. 12:00 Reassessment: No changes from previously documented assessment. Patient and/or family ll1 updated on plan of care and expected duration. Pain level reassessed. Patient is alert, oriented x 3, equal unlabored respirations, skin warm/dry/pink. 13:00 Reassessment: No changes from previously documented assessment. Patient and/or family ll1 updated on plan of care and expected duration. Pain level reassessed. Patient is alert, oriented x 3, equal unlabored respirations, skin warm/dry/pink. 14:00 Reassessment: No changes from previously documented assessment. Patient and/or family ll1 updated on plan of care and expected duration. Pain level reassessed. Patient is alert, oriented x 3, equal unlabored respirations, skin warm/dry/pink. Vital Signs: 05:59 BP 100 / 87; Pulse 69; Resp 18; Temp 98.7(O); Pulse Ox 96% on R/A; Weight 81.65 kg; oe Height 5 ft. 9 in. (175.26 cm); 07:00 BP 117 / 60; Pulse 62; Resp 15; Pulse Ox 96% ; bp 08:18 BP 133 / 54; Pulse 62; Resp 16; Pulse Ox 96% on R/A; ll1 09:00 BP 115 / 49; Pulse 64; Resp 17; Pulse Ox 98% ; bp 10:00 BP 107 / 53; Pulse 61; Resp 17; Pulse Ox 97% ; bp 11:37 BP 142 / 62; Pulse 64; Resp 16; Pulse Ox 97% on R/A; ll1 14:07 BP 136 / 71; Pulse 62; Resp 16; Pulse Ox 97% ; ll1 05:59 Body Mass Index 26.58 (81.65 kg, 175.26 cm) oe ED Course: 05:56 Patient arrived in ED. em 06:00 Arm band placed on right wrist. dc2 06:14 Skip Gunter PA is PHCP. jr8 06:14 Hakan Teran MD is Attending Physician. jr8 06:15 Felicia Gold, RN is Primary Nurse. dc2 06:15 Patient has correct armband on for positive identification. Allergy band placed. Fall dc2 risk band placed. Bed in low position. Call light in reach. Side rails up X 1. Adult w/ patient. saxophone player on. Pulse ox on. NIBP on. 06:18 Triage completed. dc2 06:22 Nurse Practitioner and/or Physician Nail Machine Operator to see patient. dc2 06:28 No provider procedures requiring assistance completed. dc2 07:03 Report given to Bartolome. dc2 07:05 IV is intact, with fluids infusing freely, with good blood return. ll1 07:11 CPK Sent. bp 07:11 ESR Sent. bp 07:26 CT Lumbar Spine Wo Con In Process Unspecified. EDMS 07:54 Primary Nurse role handed off by Felicia Gold, RN ll1 07:54 Cassia Dela Cruz, GRAZYNA is Primary Nurse. ll1 13:07 MRI Lumbar Spine wo Con In Process Unspecified. EDMS 14:08 IV discontinued, intact, bleeding controlled, No redness/swelling at site. Pressure ll1 dressing applied. Administered Medications: 08:10 Drug: fentaNYL (PF) 75 mcg Route: IVP; Site: right antecubital; ll1 10:26 Follow up: Response: Pain is decreased bp 08:10 Drug: Zofran (Ondansetron) 4 mg Route: IVP; Site: right antecubital; ll1 10:27 Follow up: Response: No adverse reaction bp Outcome: 13:54 Discharge ordered by . jr8 14:09 Discharged to home via wheelchair. ll1 14:09 Condition: stable 14:09 Discharge instructions given to patient, Instructed on discharge instructions, follow up and referral plans. medication usage, Demonstrated understanding of instructions, follow-up care, medications, Prescriptions given X 3. 14:09 Patient left the ED. ll1 Signatures: Dispatcher [employer] EDOrtiz Farfan, RN RN em Skip Gunter PA PA jr8 Dain Steele Brian RN RN bp Cassia Dela Cruz RN RN 1 Felicia Gold RN RN dc2 Corrections: (The following items were deleted from the chart) 06:29 06:00 PMHx: High Cholesterol; dc2 dc2 06:29 06:00 PMHx: Hypertension; dc2 dc2 10:27 09:40 To radiology for Lumbar Spine Wo Con+MRI.RAD.BRZ. bp EDMS
--- NOTE | 2021-05-27 13:55 | EDPHYS ---
Physician Documentation [facility] Name: Marc Dillard Age: 81 yrs Sex: Male : 1940 Arrival Date: 05/27/2021 Time: 05:56 Bed 7 Private MD: ED Physician Hakan Teran HPI: 05/27 08:05 This 81 yrs old Male presents to ER via EMS with complaints of low back pain jr8 and knee pain. 08:05 Onset: The symptoms/episode began/occurred gradually, and became worse 3 day(s) ago. jr8 Severity of symptoms: At their worst the symptoms were moderate in the emergency department the symptoms are unchanged. The patient has not experienced similar symptoms in the past. The patient has not recently seen a physician. This is a 81-year-old male patient that presented to the emergency room with insidious low back pain and bilateral knee pain that has been going on for the past several months. Patient stated only within the last 3 days pain had markedly increased and noticed swelling to the right knee along with weakness and difficulty ambulating. Patient stated that he has now to the point between the pain and weakness that he is having to utilize a walker and even then has to have assistance to get him up out of bed for his . Patient denies any traumatic event.. Historical: - Allergies: 06:00 PENICILLINS; dc2 - Home Meds: 06:00 simvastatin 40 mg Oral tab once daily [Active]; carvedilol 25 mg oral tab 1 tab 2 times dc2 per day [Active]; aspirin 81 mg Oral TbEC 1 tab once daily [Active]; - PMHx: 06:28 High Cholesterol; Hypertension; dc2 - PSHx: 06:00 Open heart sx; Stented artery; dc2 - Immunization history:: Adult Immunizations up to date, Client reports receiving the 2nd dose of the Covid vaccine, Flu vaccine is up to date. - Social history:: Smoking status: Patient reports use of chewing tobacco. Patient/guardian denies using alcohol, street drugs, IV drugs. ROS: 08:05 Eyes: Negative for injury, pain, redness, and discharge, ENT: Negative for injury, jr8 pain, and discharge, Neck: Negative for injury, pain, and swelling, Cardiovascular: Negative for chest pain, palpitations, and edema, Respiratory: Negative for shortness of breath, cough, wheezing, and pleuritic chest pain, Abdomen/GI: Negative for abdominal pain, nausea, vomiting, diarrhea, and constipation, Skin: Negative for injury, rash, and discoloration. 08:05 Back: Positive for pain at rest, pain with movement, radiated pain. 08:05 MS/extremity: Positive for pain, swelling, tenderness, of the right knee. 08:05 Neuro: Positive for weakness, Negative for dizziness, headache, numbness, syncope, near syncope, tingling, tremor, visual changes. Exam: 08:05 Constitutional: This is a well developed, well nourished patient who is awake, alert, jr8 and in no acute distress. Head/Face: Normocephalic, atraumatic. Eyes: Pupils equal round and reactive to light, extra-ocular motions intact. Lids and lashes normal. Conjunctiva and sclera are non-icteric and not injected. Cornea within normal limits. Periorbital areas with no swelling, redness, or edema. ENT: Nares patent. No nasal discharge, no septal abnormalities noted. Tympanic membranes are normal and external auditory canals are clear. Oropharynx with no redness, swelling, or masses, exudates, or evidence of obstruction, uvula midline. Mucous membranes moist. Neck: Trachea midline, no thyromegaly or masses palpated, and no cervical lymphadenopathy. Supple, full range of motion without nuchal rigidity, or vertebral point tenderness. No Meningismus. Cardiovascular: Regular rate and rhythm with a normal S1 and S2. No gallops, murmurs, or rubs. Normal PMI, no JVD. No pulse deficits. Respiratory: Lungs have equal breath sounds bilaterally, clear to auscultation and percussion. No rales, rhonchi or wheezes noted. No increased work of breathing, no retractions or nasal flaring. Abdomen/GI: Soft, non-tender, with normal bowel sounds. No distension or tympany. No guarding or rebound. No evidence of tenderness throughout. 08:05 Neuro: Awake and alert, GCS 15, oriented to person, place, time, and situation. Cranial nerves II-XII grossly intact. Motor strength 5/5 in all extremities. Sensory grossly intact. Cerebellar exam normal. 08:05 Back: pain, that is moderate, of the low back area, ROM is painful, with all movement, normal spinal alignment noted, CVA tenderness, is absent, vertebral tenderness, is not appreciated. 08:05 Musculoskeletal/extremity: Extremities: grossly normal except: noted in the right knee: Patient has mild to moderate effusion noted right knee with moderate pain to palpation. No increased warmth or erythema to affected joint. Pain both with passive and active range of motion, noted in the Left knee: pain, tenderness, Circulation is intact in all extremities. Pulses: noted to be 2+ in the right posterior tibial artery, right dorsalis pedis artery, left posterior tibial artery and left dorsalis pedis artery, Sensation intact. Vital Signs: 05:59 BP 100 / 87; Pulse 69; Resp 18; Temp 98.7(O); Pulse Ox 96% on R/A; Weight 81.65 kg; oe Height 5 ft. 9 in. (175.26 cm); 07:00 BP 117 / 60; Pulse 62; Resp 15; Pulse Ox 96% ; bp 08:18 BP 133 / 54; Pulse 62; Resp 16; Pulse Ox 96% on R/A; ll1 09:00 BP 115 / 49; Pulse 64; Resp 17; Pulse Ox 98% ; bp 10:00 BP 107 / 53; Pulse 61; Resp 17; Pulse Ox 97% ; bp 11:37 BP 142 / 62; Pulse 64; Resp 16; Pulse Ox 97% on R/A; ll1 14:07 BP 136 / 71; Pulse 62; Resp 16; Pulse Ox 97% ; ll1 05:59 Body Mass Index 26.58 (81.65 kg, 175.26 cm) oe MDM: 06:14 Patient medically screened. jr8 10:41 Data reviewed: vital signs, nurses notes, lab test result(s), radiologic studies, CT jr8 scan. Data interpreted: Pulse oximetry: on room air is 97 %. Interpretation: normal. Counseling: I had a detailed discussion with the patient and/or guardian regarding: the historical points, exam findings, and any diagnostic results supporting the discharge/admit diagnosis, lab results, radiology results. ED course: Due to the amount of weakness patient is feeling and the CT findings I suggested that we get an emergent MRI to rule out any other acute cord compression. MRI has been delayed till noon so we will continue to hold patient. 13:52 ED course: Since pain has decreased patient hemodynamically stable and afebrile at this jr8 time. Patient has no bowel or bladder dysfunction. Has no saddle anesthesia. Able to move all lower extremities has 5/5 strength. Reflexes unremarkable and has normal dorsiflexion of his greater toes and of his feet. Unlikely at this time to have acute cord compression although I have discussed with patient that he does have significant spinal stenosis. That patient needs to follow-up with Ortho spinal surgery and that we will treat his inflammation at this time. If he were to have any of the above symptoms to come back immediately for further evaluation and transfer for acute cord compression. Patient with this and understands at this time.. 05/27 06:48 Order name: CPK 05/27 06:48 Order name: ESR 05/27 06:48 Order name: CRP; Complete Time: 07:35 05/27 06:48 Order name: Uric Acid; Complete Time: 07:35 05/27 06:48 Order name: CBC with Diff; Complete Time: 07:44 05/27 06:48 Order name: Basic Metabolic Panel; Complete Time: 07:35 05/27 06:48 Order name: LFT's; Complete Time: 07:35 05/27 06:48 Order name: Creatine Phosphokinase; Complete Time: 07:35 EDMS 05/27 06:48 Order name: Sedimentation Rate, Westergren; Complete Time: 07:44 EDMS 05/27 06:49 Order name: CT Lumbar Spine Wo Con; Complete Time: 08:12 05/27 10:45 Order name: Urine Dipstick-Ancillary; Complete Time: 10:46 EDMS 05/27 10:49 Order name: MRI Lumbar Spine wo Con; Complete Time: 13:43 8 05/27 06:48 Order name: IV; Complete Time: 07:11 05/27 06:48 Order name: Urine Dipstick-Ancillary (obtain specimen); Complete Time: 11:35 8 Administered Medications: 08:10 Drug: fentaNYL (PF) 75 mcg Route: IVP; Site: right antecubital; ll1 10:26 Follow up: Response: Pain is decreased bp 08:10 Drug: Zofran (Ondansetron) 4 mg Route: IVP; Site: right antecubital; ll1 10:27 Follow up: Response: No adverse reaction bp Disposition Summary: 05/27/21 13:54 Discharge Ordered Location: Home jr8 Problem: new jr8 Symptoms: have improved jr8 Condition: Stable jr8 Diagnosis - Intervertebral disc disorders with radiculopathy, lumbar region jr8 Followup: jr8 - With: Private Physician - When: 2 - 3 days - Reason: Recheck today's complaints, Continuance of care, Re-evaluation by your physician Discharge Instructions: - Discharge Summary Sheet jr8 - Herniated Disk jr8 - Lumbosacral Radiculopathy jr8 Forms: - Medication Reconciliation Form jr8 - Thank You Letter jr8 - Antibiotic Education jr8 - Prescription Opioid Use jr8 Prescriptions: - meloxicam 15 mg Oral tablet - take 1 tablet by ORAL route once daily As needed; 20 tablet; Refills: 0, jr8 Product Selection Permitted - Skelaxin 800 mg Oral Tablet - take 1 tablet by ORAL route every 6 hours As needed; 40 tablet; Refills: 0, jr8 Product Selection Permitted - Medrol (Kelvin) 4 mg Oral Tablets, Dose Pack - take 1 tablet by ORAL route as directed - follow package instructions; 1 jr8 packet; Refills: 0, Product Selection Permitted Signatures: Dispatcher [employer] EDMS Skip Gunter PA PA jr8 Cassia Dela Cruz RN RN 1 Felicia Gold RN RN dc2 Sriram Griffith RN bp Corrections: (The following items were deleted from the chart) 06:29 06:00 PMHx: High Cholesterol; dc2 dc2 06:29 06:00 PMHx: Hypertension; dc2 dc2 10:27 08:16 Lumbar Spine Wo Con+MRI.RAD.BRZ ordered. EDMS EDMS
[2021-05-27 14:14] VITALS: TEMP 98.7
[2021-05-27 14:19] VITALS: O2SAT 97
[2021-05-27 14:22] VITALS: BP 136/71
--- OUTSIDE RECORDS SUMMARY | 2021-06-01 16:18 | XMS REPORT | Continuity of Care Document ---
:1940 Author Organization [facility] t Address [address] [place] [address] Dr. [address] [place] [address] Care Team Providers Name Role Phone JOSY MCCAULEY Attending Clinician Unavailable JOSY MCCAULEY Admitting Clinician Unavailable Payers Payer Name Policy Type Policy Number Effective Date Expiration Date [facility] [id number] 2007 00:00:00 [facility] [id number] 2011 00:00:00 Problems This patient has no known problems. Allergies, Adverse Reactions, Alerts Allergy Allergy Status Severity Reaction(s) Onset Inactive Treating Comm ents Source Name Type Date Date Clinician P[place]ILL Allergy Active Low Rash [facility] NO KNOWN Allergy Active [facility] ALLERGIE S Medications This patient has no known medications. Vital Signs Vital Name Observation Time Observation Value Comments Source WEIGHT 2020-10-13 08:06:00 85.1 kg WEIGHT 2020-10-09 04:00:00 84 kg WEIGHT 2020-10-08 06:00:00 83.6 kg HEIGHT 2020-10-07 19:20:00 177.8 cm WEIGHT 2020-10-06 05:00:00 89.9 kg WEIGHT 2020-10-05 01:00:00 89.2 kg WEIGHT 2020-10-03 04:31:00 90.1 kg HEIGHT 2020-10-02 05:46:00 177.8 cm WEIGHT 2020-10-02 05:46:00 85.14 kg HEIGHT 2020-09-28 08:58:00 175.3 cm WEIGHT 2020-09-28 08:58:00 85.73 kg WEIGHT 2020-10-13 08:06:00 85.1 kg WEIGHT 2020-10-09 04:00:00 84 kg WEIGHT 2020-10-08 06:00:00 83.6 kg HEIGHT 2020-10-07 19:20:00 177.8 cm WEIGHT 2020-10-06 05:00:00 89.9 kg WEIGHT 2020-10-05 01:00:00 89.2 kg WEIGHT 2020-10-03 04:31:00 90.1 kg HEIGHT 2020-10-02 05:46:00 177.8 cm WEIGHT 2020-10-02 05:46:00 85.14 kg HEIGHT 2020-09-28 08:58:00 175.3 cm WEIGHT 2020-09-28 08:58:00 85.73 kg HEIGHT 2020-09-28 10:47:00 175.3 cm WEIGHT 2020-09-28 10:47:00 85.186 kg HEIGHT 2020-09-28 10:47:00 175.3 cm WEIGHT 2020-09-28 10:47:00 85.186 kg HEIGHT 2020-09-24 11:31:00 175.3 cm Procedures This patient has no known procedures. Encounters Start End Encounter Admission Attending Care Care Encounter Source Date/Time Date/Time Type Type Clinicians Facility Department ID 2021-04-27 Inpatient [facility] [id number] [facility] 06:55:00 PETRA 2020-11-01 2020-11-01 Outpatient STEPHANIE COHEN [facility] [id number] [facility] 00:00:00 00:00:00 PETRA 2020-09-28 2020-09-28 Outpatient [facility] [id number] [facility] 00:00:00 00:00:00 2020-09-28 2020-09-28 Outpatient [facility] [id number] [facility] 00:00:00 00:00:00 2020-09-24 2020-09-24 Outpatient KURITS MCCAULEY [facility] [id number] [facility] 00:00:00 00:00:00 PETRA Results Test Description Test Time Test Comments Results Result Comments Source MISCELLANEOUS LAB ORDER 2020-10-23 13:29:00 Test Item Value Reference Range Interpretation Comme nts SCAN RESULT (test code = 1637053) BLOOD [id number] 16:00:00 Test Item Value Reference Range Interpretation Comments CULTURE (BEAKER) (test No growth in 5 days code = 1095) BLOOD [id number] 16:00:00 Test Item Value Reference Range Interpretation Comments CULTURE (BEAKER) (test No growth in 5 days code = 1095) BASIC METABOLIC [id number] 05:26:00 Test Item Value Reference Range Interpretation Comments SODIUM (BEAKER) 141 meq/L 136-145 (test code = 381) POTASSIUM (BEAKER) 3.7 meq/L 3.5-5.1 (test code = 379) CHLORIDE (BEAKER) 111 meq/L 98-107 H (test code = 382) CO2 (BEAKER) (test 22 meq/L 22-29 code = 355) BLOOD UREA NITROGEN 30 mg/dL 7-21 H (BEAKER) (test code = 354) CREATININE (BEAKER) 1.22 mg/dL 0.57-1.25 (test code = 358) GLUCOSE RANDOM 108 mg/dL 70-105 H (BEAKER) (test code = 652) CALCIUM (BEAKER) 8.4 mg/dL 8.4-10.2 (test code = 697) EGFR (BEAKER) (test 57 mL/min/1.73 ESTIMA AILEEN GFR IS code = 1092) sq m NOT ACCURATE CREATININE CLEARANCE IN PREDICTING GLOMERULAR FILTRATION RATE . ESTIMATED GFR I S NOT APPLICABLE FOR DIALYSIS PATIEN TS. Engineering Assistant ID - [id number] 05:26:00 Test Item Value Reference Range Interpretation Comments MAGNESIUM (BEAKER) (test code = 1.8 mg/dL 1.6-2.6 627) Engineering Assistant ID - [id number] 05:26:00 Test Item Value Reference Range Interpretation Comments PHOSPHORUS (BEAKER) (test code = 3.5 mg/dL 2.3-4.7 604) Engineering Assistant ID - ADMINCBC W/PLT COUNT & AUTO [id number] 04:43:00 Test Item Value Reference Range Interpretation Comments WHITE BLOOD CELL COUNT (BEAKER) 10.9 K/ L 3.5-10.5 H (test code = 775) RED BLOOD CELL COUNT (BEAKER) 2.62 M/ L 4.63-6.08 L (test code = 761) HEMOGLOBIN (BEAKER) (test code = 7.9 GM/DL 13.7-17.5 L 410) HEMATOCRIT (BEAKER) (test code = 24.3 % 40.1-51.0 L 411) MEAN CORPUSCULAR VOLUME (BEAKER) 92.7 fL 79.0-92.2 H (test code = 753) MEAN CORPUSCULAR HEMOGLOBIN 30.2 pg 25.7-32.2 (BEAKER) (test code = 751) MEAN CORPUSCULAR HEMOGLOBIN CONC 32.5 GM/DL 32.3-36.5 (BEAKER) (test code = 752) RED CELL DISTRIBUTION WIDTH 13.8 % 11.6-14.4 (BEAKER) (test code = 412) PLATELET COUNT (BEAKER) (test 201 K/CU MM 150-450 code = 756) MEAN PLATELET VOLUME (BEAKER) 10.6 fL 9.4-12.4 (test code = 754) NUCLEATED RED BLOOD CELLS 0 /100 WBC 0-0 (BEAKER) (test code = 413) NEUTROPHILS RELATIVE PERCENT 68 % (BEAKER) (test code = 429) LYMPHOCYTES RELATIVE PERCENT 20 % (BEAKER) (test code = 430) MONOCYTES RELATIVE PERCENT 6 % (BEAKER) (test code = 431) EOSINOPHILS RELATIVE PERCENT 3 % (BEAKER) (test code = 432) BASOPHILS RELATIVE PERCENT 0 % (BEAKER) (test code = 437) NEUTROPHILS ABSOLUTE COUNT 7.38 K/ L 1.78-5.38 H (BEAKER) (test code = 670) LYMPHOCYTES ABSOLUTE COUNT 2.13 K/ L 1.32-3.57 (BEAKER) (test code = 414) MONOCYTES ABSOLUTE COUNT (BEAKER) 0.65 K/ L 0.30-0.82 (test code = 415) EOSINOPHILS ABSOLUTE COUNT 0.36 K/ L 0.04-0.54 (BEAKER) (test code = 416) BASOPHILS ABSOLUTE COUNT (BEAKER) 0.02 K/ L 0.01-0.08 (test code = 417) IMMATURE GRANULOCYTES-RELATIVE 3 % 0-1 H PERCENT (BEAKER) (test code = 2801) SARS-COV2/RT-PCR ([facility])2020-10-13 01:32:00 Test Item Value Reference Range Interpretation Comments SARS-COV2/RT-PCR (test Negative Not Detected, Negative, code = 1590965) See external report for linked test SARS-COV-2 PERFORMING LAB [facility] (test code = 6644575) Negative result for this test determines that SARS-CoV-2 RNA was not present in the specimen above the Limit of Detection (LOD). However, Negative results do not preclude SARS-CoV-2 infection and should not be used as the sole basis for treatment or patient management decisions. Negative results mustbe combined with clinical observations, patient history, and epidemiological information. A false negative result may occur if a specimen is improperly collected, transported or handled. A false negative result should be considered if patient's recent exposures or clinical presentation indicate that COVID-19 (SARS-CoV-2) is likely and diagnostic tests for other causes of illness are negative. Re-testing should be considered in cases of suspected false negatives.The limit of detection for this assay is 100 copies/mL.This SARS CoV-2 test is a real-time RT-PCR test intended for the qualitative detection of nucleic acid from SARS-CoV-2 in a nasopharyngeal swab specimen collected from individuals susp ected of COVID-19 by their healthcare provider.This test has not been Food and Drug Administration (FDA) cleared or approved. This is a modified version of an approved Emergency Use Authorization (EUA) and is in the process of review by the FDA. Once authorized by the FDA, the issued EUA will be effective until the declaration that circumstances exist justifying the authorization of the emergency use of in vitro diagnostic tests for detection and/or diagnosis of COVID-19 is terminated under Section 564(b)(2) of the Act or the EUA is revoked under Section 564(g) of the Act.Testing was performed using the Steinberg SARS-CoV-2 assay.Fact Sheet for Healthcare Providers:https://www.molecular.steinberg/boy/ XM_RWPB-CrB-0_CMF_Oxkj_Tepbx_20-117040.pdfFact Sheet for Healthcare Patients:https://www.molecular.ab danay/boy/LW_UTHA-ChD-1_Yyfodzm_Wnwp_Xyaym_QZ_68-217268W5.pdfPerforming Laboratory:[facility] [place] [address] BASIC METABOLIC [id number] 17:40:00 Test Item Value Reference Range Interpretation Comments SODIUM (BEAKER) 138 meq/L 136-145 (test code = 381) POTASSIUM (BEAKER) 3.9 meq/L 3.5-5.1 (test code = 379) CHLORIDE (BEAKER) 108 meq/L 98-107 H (test code = 382) CO2 (BEAKER) (test 22 meq/L 22-29 code = 355) BLOOD UREA NITROGEN 32 mg/dL 7-21 H (BEAKER) (test code = 354) CREATININE (BEAKER) 1.20 mg/dL 0.57-1.25 (test code = 358) GLUCOSE RANDOM 101 mg/dL 70-105 (BEAKER) (test code = 652) CALCIUM (BEAKER) 8.7 mg/dL 8.4-10.2 (test code = 697) EGFR (BEAKER) (test 59 mL/min/1.73 ESTIMA AILEEN GFR IS code = 1092) sq m NOT ACCURATE CREATININE CLEARANCE IN PREDICTING GLOMERULAR FILTRATION RATE . ESTIMATED GFR I S NOT APPLICABLE FOR DIALYSIS PATIEN TS. Engineering Assistant ID - DBRAD, CHEST, 1 VIEW, NON [id number] 11:55:00Reason for exam:- >post opShould this be performed at the bedside?->Yes [facility] 1940 Sex: MFINAL REPORT CLINICAL HISTORY: post op TECHNIQUE: 1 view of the chest. COMPARISON: 10/11/2020 IMPRESSION: There are no focal infiltrates or effusions. The cardiomediastinal silhouette is unchanged poststernotomy. Signed: Arcelia Cannoneport Verified Date/Time: 10/12/2020 11:55:39 Reading Location: [facility] Radiology Reading Room CT, ABDOMEN, WITHOUT [id number] 08:14:00 Unlisted Reason for Exam - Click Yes and Enter Reason Below->NoWill this procedure require oral contrast?->No [facility] : 1940 Sex: MFINAL REPORT CT, ABDOMEN, WITHOUT CONTRAST HISTORY: Abdominal di stension COMPARISON: CT abdomen 10/06/2020. TECHNIQUE: CT abdomen without intravenous contrast. Dosemodulation, iterative reconstruction, and/or weight- based adjustment of the mA/kV was utilized to reduce the radiation dose to as low as reasonably achievable. FINDINGS: Lack of intravenous contrast compromises evaluation of perfusion and for isodense lesions.Lung bases: Small bilateral pleural effusions and resulting atelectasis. Coronary artery calcifications and median sternotomy wires.Liver: Decreased in attenuation diffusely. No solid mass.Gallbladder and bile ducts: Unremarkable.Spleen: Mildlyenlarged.Pancreas: Partial fatty atrophy of the pancreas.Adrenals: UnremarkableKidneys and ureters: No hydronephrosis. Punctate nonobstructive bilateral renal calculi. A subcentimeter hemorrhagic/proteinaceous right upper pole renal cyst. A 22 mm simple appearing right lower pole renal cyst. Intermediate attenuation foci in the left up to 11 mm at the left upper pole are likely additional mildly hemor rhagic/proteinaceous cysts.Bowel: Sigmoid colon within the left inguinal hernia, extends outside qakjqeeg-mp-ptir and incompletely evaluated but there is no evidence for bowel obstruction within the htezo-mg-jpjh. Predominantly left sided colonic diverticulosis without associated colonic wall thickening or surrounding stranding. Normal appendix. No definite wall thickening. A few loops of liquid filled small bowel in the right lower quadrant, some of which are at the upper limits of normal for diameter with small gas-liquid levels, nonspecific, no transition point identified.Bladder: Incompletelyvisualized, punctate focus of intraluminal bladder gas.Reproductive organs: Outside the whcbh-mc-ngyt.Lymph nodes: Unremarkable.Peritoneum: Mild Central mesenteric haziness tiny mesenteric lymph nodes,unchanged with.Vessels: Moderate atherosclerotic calcifications.Abdominal wall: Unremarkable.Bones: Multilevel degenerative changes of the lumbar spine. IMPRESSION: Lack of intravenous contrast compromises evaluation of perfusion and for isodense lesions. CT Abdomen Only, a portion of the pelvis is excluded from ogzbk-at-xahw. 1.A few loops of liquid filled small bowel in the right lower quadrant, some at the upper limits of normal for diameter, nonspecific, no transition point identified.2.Left inguinal hernia containing sigmoid colon, only partially visualized, no evidence for complication within the gzmqm-dt-iaiu.3.Hepatic steatosis. Mild splenomegaly.4.Findings of mesenteric panniculitis.5.Non obstructive renal calculi bilaterally. No hydronephrosis.6.Indeterminate mildly hyperattenuating left renal foci, likely mildly hemorrhagic/proteinaceous cysts. A follow-up renal ultrasound is recommended. Signed: Darron Encinas Verified Date/Time: 10/12/2020 08:14:42 Reading Location: [facility] Diagnostic Imaging Reading Room - [place] [address] BASIC METABOLIC [id number] 05:54:00 Test Item Value Reference Range Interpretation Comments SODIUM (BEAKER) 140 meq/L 136-145 (test code = 381) POTASSIUM (BEAKER) 3.5 meq/L 3.5-5.1 (test code = 379) CHLORIDE (BEAKER) 109 meq/L 98-107 H (test code = 382) CO2 (BEAKER) (test 22 meq/L 22-29 code = 355) BLOOD UREA NITROGEN 31 mg/dL 7-21 H (BEAKER) (test code = 354) CREATININE (BEAKER) 1.16 mg/dL 0.57-1.25 (test code = 358) GLUCOSE RANDOM 102 mg/dL 70-105 (BEAKER) (test code = 652) CALCIUM (BEAKER) 8.4 mg/dL 8.4-10.2 (test code = 697) EGFR (BEAKER) (test 61 mL/min/1.73 ESTIMA AILEEN GFR IS code = 1092) sq m NOT ACCURATE CREATININE CLEARANCE IN PREDICTING GLOMERULAR FILTRATION RATE . ESTIMATED GFR I S NOT APPLICABLE FOR DIALYSIS PATIEN TS. Engineering Assistant ID - [id number] 05:54:00 Test Item Value Reference Range Interpretation Comments MAGNESIUM (BEAKER) (test code = 2.0 mg/dL 1.6-2.6 627) Engineering Assistant ID - [id number] 05:54:00 Test Item Value Reference Range Interpretation Comments PHOSPHORUS (BEAKER) (test code = 3.8 mg/dL 2.3-4.7 604) Engineering Assistant ID - EDASICBC W/PLT COUNT & AUTO [id number] 05:08:00 Test Item Value Reference Range Interpretation Comments WHITE BLOOD CELL COUNT (BEAKER) 15.4 K/ L 3.5-10.5 H (test code = 775) RED BLOOD CELL COUNT (BEAKER) 2.58 M/ L 4.63-6.08 L (test code = 761) HEMOGLOBIN (BEAKER) (test code = 7.8 GM/DL 13.7-17.5 L 410) HEMATOCRIT (BEAKER) (test code = 23.2 % 40.1-51.0 L 411) MEAN CORPUSCULAR VOLUME (BEAKER) 89.9 fL 79.0-92.2 (test code = 753) MEAN CORPUSCULAR HEMOGLOBIN 30.2 pg 25.7-32.2 (BEAKER) (test code = 751) MEAN CORPUSCULAR HEMOGLOBIN CONC 33.6 GM/DL 32.3-36.5 (BEAKER) (test code = 752) RED CELL DISTRIBUTION WIDTH 13.6 % 11.6-14.4 (BEAKER) (test code = 412) PLATELET COUNT (BEAKER) (test 173 K/CU MM 150-450 code = 756) MEAN PLATELET VOLUME (BEAKER) 10.7 fL 9.4-12.4 (test code = 754) NUCLEATED RED BLOOD CELLS 0 /100 WBC 0-0 (BEAKER) (test code = 413) NEUTROPHILS RELATIVE PERCENT 76 % (BEAKER) (test code = 429) LYMPHOCYTES RELATIVE PERCENT 12 % (BEAKER) (test code = 430) MONOCYTES RELATIVE PERCENT 7 % (BEAKER) (test code = 431) EOSINOPHILS RELATIVE PERCENT 3 % (BEAKER) (test code = 432) BASOPHILS RELATIVE PERCENT 0 % (BEAKER) (test code = 437) NEUTROPHILS ABSOLUTE COUNT 11.62 K/ L 1.78-5.38 H (BEAKER) (test code = 670) LYMPHOCYTES ABSOLUTE COUNT 1.80 K/ L 1.32-3.57 (BEAKER) (test code = 414) MONOCYTES ABSOLUTE COUNT (BEAKER) 1.04 K/ L 0.30-0.82 H (test code = 415) EOSINOPHILS ABSOLUTE COUNT 0.47 K/ L 0.04-0.54 (BEAKER) (test code = 416) BASOPHILS ABSOLUTE COUNT (BEAKER) 0.05 K/ L 0.01-0.08 (test code = 417) IMMATURE GRANULOCYTES-RELATIVE 3 % 0-1 H PERCENT (BEAKER) (test code = 2801) URINALYSIS W/ REFLEX URINE [id number] 19:41:00 Test Item Value Reference Range Interpretation Comments COLOR (BEAKER) (test code = 470) Yellow CLARITY (BEAKER) (test code = 469) Clear SPECIFIC GRAVITY UA (BEAKER) (test 1.019 1.001-1.035 code = 468) PH UA (BEAKER) (test code = 467) 5.5 5.0-8.0 PROTEIN UA (BEAKER) (test code = 20 mg/dL Negative A 464) GLUCOSE UA (BEAKER) (test code = Negative Negative 365) KETONES UA (BEAKER) (test code = Negative Negative 371) BILIRUBIN UA (BEAKER) (test code = Negative Negative 462) BLOOD UA (BEAKER) (test code = 461) Trace Negative A NITRITE UA (BEAKER) (test code = Negative Negative 465) LEUKOCYTE ESTERASE UA (BEAKER) Negative Negative (test code = 466) UROBILINOGEN UA (BEAKER) (test code 0.2 mg/dL 0.2-1.0 = 463) RBC UA (BEAKER) (test code = 519) 3 /HPF WBC UA (BEAKER) (test code = 520) 2 /HPF MUCUS (BEAKER) (test code = 1574) Few HYALINE CASTS (BEAKER) (test code = 5 /LPF 514) URIC ACID CRYSTALS (BEAKER) (test Rare code = 1583) SOURCE(BEAKER) (test code = 2795) Engineering Assistant ID - [auto]Engineering Assistant ID - techLACTIC ACID, [id number] 16:44:00 Test Item Value Reference Range Interpretation Comments LACTATE BLOOD VENOUS (2) (BEAKER) 1.02 mmol/L 0.50-2.20 (test code = 2872) Engineering Assistant ID - DBBASIC METABOLIC [id number] 15:39:00 Test Item Value Reference Range Interpretation Comments SODIUM (BEAKER) 139 meq/L 136-145 (test code = 381) POTASSIUM (BEAKER) 3.8 meq/L 3.5-5.1 (test code = 379) CHLORIDE (BEAKER) 106 meq/L 98-107 (test code = 382) CO2 (BEAKER) (test 24 meq/L 22-29 code = 355) BLOOD UREA NITROGEN 32 mg/dL 7-21 H (BEAKER) (test code = 354) CREATININE (BEAKER) 1.37 mg/dL 0.57-1.25 H (test code = 358) GLUCOSE RANDOM 99 mg/dL 70-105 (BEAKER) (test code = 652) CALCIUM (BEAKER) 8.9 mg/dL 8.4-10.2 (test code = 697) EGFR (BEAKER) (test 50 mL/min/1.73 ESTIMA AILEEN GFR IS code = 1092) sq m NOT ACCURATE CREATININE CLEARANCE IN PREDICTING GLOMERULAR FILTRATION RATE . ESTIMATED GFR I S NOT APPLICABLE FOR DIALYSIS PATIEN TS. Engineering Assistant ID - DBRAD, ABDOMEN/KUB, 1 VIEW [id number] 09:03:00Reason for exam:- >fever, C. DiffShould this be performed at the bedside?->Yes [facility] 1940 Sex: MFINAL REPORT CLINICAL HISTORY: fever, C. Diff TECHNIQUE: Supine a bdomen COMPARISON: 10/10/2020 IMPRESSION: There is increased prominence of a few mildly prominent loops of small bowel in the central and right lower abdomen. This represents an abnormal nonspecific bowel gas pattern. However Free air and air-fluid levels are not definitively seen, but also cannot be excluded on the supine view. Signed: Arcelia Cannon Verified Date/Time: 10/11/2020 09:03:49 Reading Location: [facility] Radiology Reading Room RAD, CHEST, 1 VIEW, NON [id number] 08:52:00Reason for exam:->feverShould this be performed at the bedside?->Yes [facility] : 1940 Sex: MFINAL REPORT CLINICAL HISTORY: fever TECHNIQUE: 1 view of the chest. COMPARISON: 10/10/2020 IMPRESSION: There are no focal infiltrates or effusions. The cardiomediastinal silhouette is unchanged poststernotomy. Signed: Arcelia Cannon Verified Date/Time: 10/11/2020 08:52:52 Reading Location: [facility] Radiology Reading Room BASIC METABOLIC [id number] 05:36:00 Test Item Value Reference Range Interpretation Comments SODIUM (BEAKER) 137 meq/L 136-145 (test code = 381) POTASSIUM (BEAKER) 3.7 meq/L 3.5-5.1 (test code = 379) CHLORIDE (BEAKER) 107 meq/L 98-107 (test code = 382) CO2 (BEAKER) (test 20 meq/L 22-29 L code = 355) BLOOD UREA NITROGEN 31 mg/dL 7-21 H (BEAKER) (test code = 354) CREATININE (BEAKER) 1.17 mg/dL 0.57-1.25 (test code = 358) GLUCOSE RANDOM 112 mg/dL 70-105 H (BEAKER) (test code = 652) CALCIUM (BEAKER) 8.4 mg/dL 8.4-10.2 (test code = 697) EGFR (BEAKER) (test 60 mL/min/1.73 ESTIMA AILEEN GFR IS code = 1092) sq m NOT ACCURATE CREATININE CLEARANCE IN PREDICTING GLOMERULAR FILTRATION RATE . ESTIMATED GFR I S NOT APPLICABLE FOR DIALYSIS PATIEN TS. Engineering Assistant ID - ACE [id number] 05:36:00 Test Item Value Reference Range Interpretation Comments MAGNESIUM (BEAKER) (test code = 1.9 mg/dL 1.6-2.6 627) Engineering Assistant ID - ACE [id number] 05:36:00 Test Item Value Reference Range Interpretation Comments PHOSPHORUS (BEAKER) (test code = 3.8 mg/dL 2.3-4.7 604) Engineering Assistant ID - ACE MCBC W/PLT COUNT & AUTO [id number] 04:54:00 Test Item Value Reference Range Interpretation Comments WHITE BLOOD CELL COUNT (BEAKER) 21.7 K/ L 3.5-10.5 H (test code = 775) RED BLOOD CELL COUNT (BEAKER) 2.76 M/ L 4.63-6.08 L (test code = 761) HEMOGLOBIN (BEAKER) (test code = 8.2 GM/DL 13.7-17.5 L 410) HEMATOCRIT (BEAKER) (test code = 24.6 % 40.1-51.0 L 411) MEAN CORPUSCULAR VOLUME (BEAKER) 89.1 fL 79.0-92.2 (test code = 753) MEAN CORPUSCULAR HEMOGLOBIN 29.7 pg 25.7-32.2 (BEAKER) (test code = 751) MEAN CORPUSCULAR HEMOGLOBIN CONC 33.3 GM/DL 32.3-36.5 (BEAKER) (test code = 752) RED CELL DISTRIBUTION WIDTH 13.6 % 11.6-14.4 (BEAKER) (test code = 412) PLATELET COUNT (BEAKER) (test 176 K/CU MM 150-450 code = 756) MEAN PLATELET VOLUME (BEAKER) 10.5 fL 9.4-12.4 (test code = 754) NUCLEATED RED BLOOD CELLS 0 /100 WBC 0-0 (BEAKER) (test code = 413) NEUTROPHILS RELATIVE PERCENT 81 % (BEAKER) (test code = 429) LYMPHOCYTES RELATIVE PERCENT 8 % (BEAKER) (test code = 430) MONOCYTES RELATIVE PERCENT 7 % (BEAKER) (test code = 431) EOSINOPHILS RELATIVE PERCENT 2 % (BEAKER) (test code = 432) BASOPHILS RELATIVE PERCENT 0 % (BEAKER) (test code = 437) NEUTROPHILS ABSOLUTE COUNT 17.54 K/ L 1.78-5.38 H (BEAKER) (test code = 670) LYMPHOCYTES ABSOLUTE COUNT 1.81 K/ L 1.32-3.57 (BEAKER) (test code = 414) MONOCYTES ABSOLUTE COUNT (BEAKER) 1.46 K/ L 0.30-0.82 H (test code = 415) EOSINOPHILS ABSOLUTE COUNT 0.40 K/ L 0.04-0.54 (BEAKER) (test code = 416) BASOPHILS ABSOLUTE COUNT (BEAKER) 0.06 K/ L 0.01-0.08 (test code = 417) IMMATURE GRANULOCYTES-RELATIVE 2 % 0-1 H PERCENT (BEAKER) (test code = 2801) RAD, ABDOMEN/KUB, 1 VIEW [id number] 21:13:00Reason for exam:->interval change, abdominal distension [facility] 1940 Sex: MFINAL REPORT X-ray abdomen, one view AP History: interval change, abdominal distension Comparison: 10/08/2020. Discussion: Interval improvement in degree of small bowel loop dilatation no dilated loops of bowel are identified. Air is identified throughout the small bowel loops and decompressed colon. No suspicious calcification. Multiple overlying EKG leads are noted. No acute osseous abnormality.Mild to moderate multilevel degenerative changes of the spine are again noted. IMPRESSION: Improvement in degree of bowel loop distention. Air-filled nondilated small bowel loops and decompressed colon are identified. Signed: Danielle Barlow MDReport Verified Date/Time: 10/10/2020 21:13:00 Reading Location: [address] Transitional Reading Room Electronically signedby: DANIELLE BARLOW MD on 10/10/2020 09:13 PMBASI METABOLIC [id number] 18:20:00 Test Item Value Reference Range Interpretation Comments SODIUM (BEAKER) 138 meq/L 136-145 (test code = 381) POTASSIUM (BEAKER) 3.5 meq/L 3.5-5.1 (test code = 379) CHLORIDE (BEAKER) 107 meq/L 98-107 (test code = 382) CO2 (BEAKER) (test 20 meq/L 22-29 L code = 355) BLOOD UREA NITROGEN 29 mg/dL 7-21 H (BEAKER) (test code = 354) CREATININE (BEAKER) 1.10 mg/dL 0.57-1.25 (test code = 358) GLUCOSE RANDOM 97 mg/dL 70-105 (BEAKER) (test code = 652) CALCIUM (BEAKER) 8.6 mg/dL 8.4-10.2 (test code = 697) EGFR (BEAKER) (test 65 mL/min/1.73 ESTIMA AILEEN GFR IS code = 1092) sq m NOT ACCURATE CREATININE CLEARANCE IN PREDICTING GLOMERULAR FILTRATION RATE . ESTIMATED GFR I S NOT APPLICABLE FOR DIALYSIS PATIEN TS. Engineering Assistant ID - [id number] 18:20:00 Test Item Value Reference Range Interpretation Comments MAGNESIUM (BEAKER) (test code = 2.0 mg/dL 1.6-2.6 627) Engineering Assistant ID - BSRAD, CHEST, 1 VIEW, NON [id number] 10:58:00Reason for exam:- >post opShould this be performed at the bedside?->Yes [facility] : 1940 Sex: MFINAL REPORT CLINICAL HISTORY: post op TECHNIQUE: 1 view of the chest. COMPARISON: 10/09/2020 IMPRESSION: There are no infiltrates or significant effusions. Cardiomegaly is again seen poststernotomy. Signed: Acrelia Cannon Verified Date/Time: 10/10/2020 10:58:39 Reading Location: [facility] Radiology Reading Room POCT-GLUCOSE [id number] 07:50:00 Test Item Value Reference Range Interpretation Comments POC-GLUCOSE METER 112 mg/dL 70-110 H : [facility] [place] [facility] [place] (BEAKER[place] (test code = CULLEN HILLMAN MD, 1538) 78154: Engineering Assistant/Techni preeti ID = [id number] for [place] LLIAMS, TYKARI BASIC METABOLIC [id number] 05:07:00 Test Item Value Reference Range Interpretation Comments SODIUM (BEAKER) 140 meq/L 136-145 (test code = 381) POTASSIUM (BEAKER) 3.7 meq/L 3.5-5.1 (test code = 379) CHLORIDE (BEAKER) 110 meq/L 98-107 H (test code = 382) CO2 (BEAKER) (test 19 meq/L 22-29 L code = 355) BLOOD UREA NITROGEN 35 mg/dL 7-21 H (BEAKER) (test code = 354) CREATININE (BEAKER) 1.09 mg/dL 0.57-1.25 (test code = 358) GLUCOSE RANDOM 109 mg/dL 70-105 H (BEAKER) (test code = 652) CALCIUM (BEAKER) 8.4 mg/dL 8.4-10.2 (test code = 697) EGFR (BEAKER) (test 65 mL/min/1.73 ESTIMA AILEEN GFR IS code = 1092) sq m NOT ACCURATE CREATININE CLEARANCE IN PREDICTING GLOMERULAR FILTRATION RATE . ESTIMATED GFR I S NOT APPLICABLE FOR DIALYSIS PATIEN TS. Engineering Assistant ID - PIJANESSA [id number] 05:07:00 Test Item Value Reference Range Interpretation Comments MAGNESIUM (BEAKER) (test code = 2.1 mg/dL 1.6-2.6 627) Engineering Assistant ID - PIJANESSA [id number] 05:07:00 Test Item Value Reference Range Interpretation Comments PHOSPHORUS (BEAKER) (test code = 3.2 mg/dL 2.3-4.7 604) Engineering Assistant ID - FATMATA LCBC W/PLT COUNT & AUTO [id number] 04:29:00 Test Item Value Reference Range Interpretation Comments WHITE BLOOD CELL COUNT (BEAKER) 15.9 K/ L 3.5-10.5 H (test code = 775) RED BLOOD CELL COUNT (BEAKER) 3.01 M/ L 4.63-6.08 L (test code = 761) HEMOGLOBIN (BEAKER) (test code = 9.0 GM/DL 13.7-17.5 L 410) HEMATOCRIT (BEAKER) (test code = 26.7 % 40.1-51.0 L 411) MEAN CORPUSCULAR VOLUME (BEAKER) 88.7 fL 79.0-92.2 (test code = 753) MEAN CORPUSCULAR HEMOGLOBIN 29.9 pg 25.7-32.2 (BEAKER) (test code = 751) MEAN CORPUSCULAR HEMOGLOBIN CONC 33.7 GM/DL 32.3-36.5 (BEAKER) (test code = 752) RED CELL DISTRIBUTION WIDTH 13.3 % 11.6-14.4 (BEAKER) (test code = 412) PLATELET COUNT (BEAKER) (test 195 K/CU MM 150-450 code = 756) MEAN PLATELET VOLUME (BEAKER) 10.7 fL 9.4-12.4 (test code = 754) NUCLEATED RED BLOOD CELLS 0 /100 WBC 0-0 (BEAKER) (test code = 413) NEUTROPHILS RELATIVE PERCENT 79 % (BEAKER) (test code = 429) LYMPHOCYTES RELATIVE PERCENT 9 % (BEAKER) (test code = 430) MONOCYTES RELATIVE PERCENT 8 % (BEAKER) (test code = 431) EOSINOPHILS RELATIVE PERCENT 3 % (BEAKER) (test code = 432) BASOPHILS RELATIVE PERCENT 0 % (BEAKER) (test code = 437) NEUTROPHILS ABSOLUTE COUNT 12.51 K/ L 1.78-5.38 H (BEAKER) (test code = 670) LYMPHOCYTES ABSOLUTE COUNT 1.35 K/ L 1.32-3.57 (BEAKER) (test code = 414) MONOCYTES ABSOLUTE COUNT (BEAKER) 1.21 K/ L 0.30-0.82 H (test code = 415) EOSINOPHILS ABSOLUTE COUNT 0.43 K/ L 0.04-0.54 (BEAKER) (test code = 416) BASOPHILS ABSOLUTE COUNT (BEAKER) 0.05 K/ L 0.01-0.08 (test code = 417) IMMATURE GRANULOCYTES-RELATIVE 2 % 0-1 H PERCENT (BEAKER) (test code = 280) [id number] 17:00:00 Test Item Value Reference Range Interpretation Comments MAGNESIUM (BEAKER) 2.1 mg/dL 1.6-2.6 Specimen slightly (test code = 627) hemolyzed Engineering Assistant ID - ADMINBASIC METABOLIC [id number] 17:00:00 Test Item Value Reference Range Interpretation Comments SODIUM (BEAKER) 138 meq/L 136-145 (test code = 381) POTASSIUM (BEAKER) 3.9 meq/L 3.5-5.1 Specimen slightly (test code = 379) hemolyzed CHLORIDE (BEAKER) 109 meq/L 98-107 H (test code = 382) CO2 (BEAKER) (test 18 meq/L 22-29 L code = 355) BLOOD UREA NITROGEN 39 mg/dL 7-21 H (BEAKER) (test code = 354) CREATININE (BEAKER) 1.24 mg/dL 0.57-1.25 Specimen slightly (test code = 358) hemolyzed GLUCOSE RANDOM 116 mg/dL 70-105 H (BEAKER) (test code = 652) CALCIUM (BEAKER) 8.5 mg/dL 8.4-10.2 (test code = 697) EGFR (BEAKER) (test 56 mL/min/1.73 ESTIMA AILEEN GFR IS code = 1092) sq m NOT ACCURATE CREATININE CLEARANCE IN PREDICTING GLOMERULAR FILTRATION RATE . ESTIMATED GFR I S NOT APPLICABLE FOR DIALYSIS PATIEN TS. Engineering Assistant ID - ADMINMRSA [id number] 14:20:00 Test Item Value Reference Range Interpretation Comments CULTURE (BEAKER) (test code No MRSA isolated = 1095) BLOOD [id number] 11:00:00 Test Item Value Reference Range Interpretation Comments CULTURE (BEAKER) (test No growth in 5 days code = 1095) BLOOD [id number] 11:00:00 Test Item Value Reference Range Interpretation Comments CULTURE (BEAKER) (test No growth in 5 days code = 1095) RAD, CHEST, 1 VIEW, NON [id number] 07:39:00Reason for exam:->post opShould this be performed at the bedside?->Yes [facility] 1940 Sex: MFINAL REPORT CLINICAL HISTORY: post op TECHNIQUE: 1 view of the chest. COMPARISON: 10/08/2020 IMPRESSION: There are increased bilateral airspace opacities. There is blunting of the right costophrenic angle. Cardiomegaly is again seen poststernotomy. Signed: Arcelia Cannon MDReport Verified Date/Time: 10/09/2020 07:39:09 Reading Location: [facility] Radiology Reading Room CT, ABDOMEN, WITHOUT [id number] 07:28:00Unlisted Reason for Exam - Click Yes and Enter Reason Below->No Will this procedure require oral contrast?->No [facility] : 1940 Sex: MFINAL REPORT TECHNIQUE: CT of the abdomen WITHOUT intravenous contrast and WITHOUT oral contrast. Dose modulation, iterative reconstruction, and/or weight-based adjustment of the mA/kV was utilized to reduce the radiation dose to as low as reasonably achievable. INDICATION: Abdominal distension. COMPARISON: None. FINDINGS: ABSENCE OF INTRAVENOUS CONTRAST DECREASES SENSITIVITY FOR DETECTION OF FOCAL LESIONS AND VASCULAR PATHOLOGY. LOWER THORAX: Trace right and small left pleural effusions with mild basilar atelectasis. Epicardial pacing wires are in place. HEPATOBILIARY: No focal hepatic lesions. Gallbladder is unremarkable. No biliary ductal dilatation.SPLEEN: 13.7 cm splenomegaly.PANCREAS: No focal masses or ductal dilatation. ADRENALS: No adrenal nodules.KIDNEYS/URETERS: No hydronephrosis. A left upper pole nonobstructing stone measures 0.2 cm. A right lower pole nonobstructing stone measures 0.5 cm. An exophytic right lower pole renal cyst measures 2 cm. E xophytic lateral pole renal lesion is hyperdense and measures 0.7 cm. An exophytic left upper pole hyperdense renal lesion measures 1.1 cm PERITONEUM/RETROPERITONEUM: No free air or fluid. Mild haziness of the jejunal mesentery.LYMPH NODES: No lymphadenopathy.VESSELS: Marked calcification of the abdominal aorta. GI TRACT: No distention or wall thickening of the partially visualized bowel. There are prominent loops of small bowel. Liquid stool in the colon. BONES AND SOFT TISSUES: Prior, unhealed sternotomy. Moderate degenerative changes of the partially visualized spine. IMPRESSION: The bowel is only partially visualized on this CT of the abdomen. 1.The liquid stool in the colon is concerning fora nonspecific diarrheal illness. 2.There are prominent but nondistended loops of small bowel. 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 4.Bilateral mildly hyperdense renal lesions measure up to 1.1 cm and are indeterminate. Further evaluation with a CT or MR renal mass protocol is recommended on a nonemergent basis to exclude a solid renal neoplasm. 5.Mild splenomegaly. 6.Bilateral nonobstructing renal stones measure up to 0.5 cm. Signed: Rosendo Hagen MDReport Verified Date/Time: 10/09/2020 07:28:03 Reading Location: [facility] Diagnostic Imaging Reading Room - [place] [address] [id number] 04:41:00 Test Item Value Reference Range Interpretation Comments MAGNESIUM (BEAKER) 2.2 mg/dL 1.6-2.6 Specimen slightly (test code = 627) hemolyzed Engineering Assistant ID - ACE [id number] 04:41:00 Test Item Value Reference Range Interpretation Comments PHOSPHORUS (BEAKER) 3.1 mg/dL 2.3-4.7 Specimen slightly (test code = 604) hemolyzed Engineering Assistant ID - ACE MBASIC METABOLIC [id number] 04:41:00 Test Item Value Reference Range Interpretation Comments SODIUM (BEAKER) 139 meq/L 136-145 (test code = 381) POTASSIUM (BEAKER) 4.0 meq/L 3.5-5.1 Specimen slightly (test code = 379) hemolyzed CHLORIDE (BEAKER) 109 meq/L 98-107 H (test code = 382) CO2 (BEAKER) (test 20 meq/L 22-29 L code = 355) BLOOD UREA NITROGEN 38 mg/dL 7-21 H (BEAKER) (test code = 354) CREATININE (BEAKER) 1.20 mg/dL 0.57-1.25 Specimen slightly (test code = 358) hemolyzed GLUCOSE RANDOM 108 mg/dL 70-105 H (BEAKER) (test code = 652) CALCIUM (BEAKER) 8.4 mg/dL 8.4-10.2 (test code = 697) EGFR (BEAKER) (test 59 mL/min/1.73 ESTIMA AILEEN GFR IS code = 1092) sq m NOT ACCURATE CREATININE CLEARANCE IN PREDICTING GLOMERULAR FILTRATION RATE . ESTIMATED GFR I S NOT APPLICABLE FOR DIALYSIS PATIEN TS. Engineering Assistant ID - ACE MCALCIUM, [id number] 04:03:00 Test Item Value Reference Range Interpretation Comments CALCIUM IONIZED (BEAKER) (test 1.17 mmol/L 1.12-1.27 code = 698) PH, BLOOD (BEAKER) (test code = 7.35 1810) CBC W/PLT COUNT & AUTO [id number] 03:48:00 Test Item Value Reference Range Interpretation Comments WHITE BLOOD CELL COUNT (BEAKER) 9.6 K/ L 3.5-10.5 (test code = 775) RED BLOOD CELL COUNT (BEAKER) 2.92 M/ L 4.63-6.08 L (test code = 761) HEMOGLOBIN (BEAKER) (test code = 8.7 GM/DL 13.7-17.5 L 410) HEMATOCRIT (BEAKER) (test code = 26.5 % 40.1-51.0 L 411) MEAN CORPUSCULAR VOLUME (BEAKER) 90.8 fL 79.0-92.2 (test code = 753) MEAN CORPUSCULAR HEMOGLOBIN 29.8 pg 25.7-32.2 (BEAKER) (test code = 751) MEAN CORPUSCULAR HEMOGLOBIN CONC 32.8 GM/DL 32.3-36.5 (BEAKER) (test code = 752) RED CELL DISTRIBUTION WIDTH 13.2 % 11.6-14.4 (BEAKER) (test code = 412) PLATELET COUNT (BEAKER) (test 193 K/CU MM 150-450 code = 756) MEAN PLATELET VOLUME (BEAKER) 10.6 fL 9.4-12.4 (test code = 754) NUCLEATED RED BLOOD CELLS 0 /100 WBC 0-0 (BEAKER) (test code = 413) NEUTROPHILS RELATIVE PERCENT 68 % (BEAKER) (test code = 429) LYMPHOCYTES RELATIVE PERCENT 13 % (BEAKER) (test code = 430) MONOCYTES RELATIVE PERCENT 11 % (BEAKER) (test code = 431) EOSINOPHILS RELATIVE PERCENT 5 % (BEAKER) (test code = 432) BASOPHILS RELATIVE PERCENT 1 % (BEAKER) (test code = 437) NEUTROPHILS ABSOLUTE COUNT 6.47 K/ L 1.78-5.38 H (BEAKER) (test code = 670) LYMPHOCYTES ABSOLUTE COUNT 1.28 K/ L 1.32-3.57 L (BEAKER) (test code = 414) MONOCYTES ABSOLUTE COUNT (BEAKER) 1.05 K/ L 0.30-0.82 H (test code = 415) EOSINOPHILS ABSOLUTE COUNT 0.45 K/ L 0.04-0.54 (BEAKER) (test code = 416) BASOPHILS ABSOLUTE COUNT (BEAKER) 0.05 K/ L 0.01-0.08 (test code = 417) IMMATURE GRANULOCYTES-RELATIVE 3 % 0-1 H PERCENT (BEAKER) (test code = 2801) [id number] 17:02:00 Test Item Value Reference Range Interpretation Comments MAGNESIUM (BEAKER) (test code = 2.3 mg/dL 1.6-2.6 627) Engineering Assistant ID - DBBASIC METABOLIC [id number] 17:02:00 Test Item Value Reference Range Interpretation Comments SODIUM (BEAKER) 137 meq/L 136-145 (test code = 381) POTASSIUM (BEAKER) 3.7 meq/L 3.5-5.1 (test code = 379) CHLORIDE (BEAKER) 108 meq/L 98-107 H (test code = 382) CO2 (BEAKER) (test 20 meq/L 22-29 L code = 355) BLOOD UREA NITROGEN 44 mg/dL 7-21 H (BEAKER) (test code = 354) CREATININE (BEAKER) 1.24 mg/dL 0.57-1.25 (test code = 358) GLUCOSE RANDOM 111 mg/dL 70-105 H (BEAKER) (test code = 652) CALCIUM (BEAKER) 8.8 mg/dL 8.4-10.2 (test code = 697) EGFR (BEAKER) (test 56 mL/min/1.73 ESTIMA AILEEN GFR IS code = 1092) sq m NOT ACCURATE CREATININE CLEARANCE IN PREDICTING GLOMERULAR FILTRATION RATE . ESTIMATED GFR I S NOT APPLICABLE FOR DIALYSIS PATIEN TS. Engineering Assistant ID - DBOperator ID - DBRAD, ABDOMEN/KUB, 1 VIEW [id number] 15:08:00 Reason for exam:->abdominal distension [facility] : 1940 Sex: MFINAL REPORT CLINICAL HISTORY: abdominal distension TECHNIQUE: Supine abdomen COMPARISON: 10/06/2020 IMPRESSION: Mildly dilated loops of small bowel are again seen inthe right lower abdomen. There is a paucity of colonic bowel gas. If clinically warranted, abdominalCT should be performed to evaluate for possible small bowel obstruction versus ileus. Free air and air-fluid levels are not definitively seen, but also cannot be excluded on the supine view. Signed: Arcelia Cannon MDReport Verified Date/Time: 10/08/2020 15:08:30 Reading Location: [facility] Radiology Reading Room BASI METABOLIC [id number] 14:03:00 Test Item Value Reference Range Interpretation Comments SODIUM (BEAKER) 139 meq/L 136-145 (test code = 381) POTASSIUM (BEAKER) 3.7 meq/L 3.5-5.1 (test code = 379) CHLORIDE (BEAKER) 107 meq/L 98-107 (test code = 382) CO2 (BEAKER) (test 21 meq/L 22-29 L code = 355) BLOOD UREA NITROGEN 44 mg/dL 7-21 H (BEAKER) (test code = 354) CREATININE (BEAKER) 1.30 mg/dL 0.57-1.25 H (test code = 358) GLUCOSE RANDOM 115 mg/dL 70-105 H (BEAKER) (test code = 652) CALCIUM (BEAKER) 8.9 mg/dL 8.4-10.2 (test code = 697) EGFR (BEAKER) (test 53 mL/min/1.73 ESTIMA AILEEN GFR IS code = 1092) sq m NOT ACCURATE CREATININE CLEARANCE IN PREDICTING GLOMERULAR FILTRATION RATE . ESTIMATED GFR I S NOT APPLICABLE FOR DIALYSIS PATIEN TS. Engineering Assistant ID - DBPOCT-GLUCOSE [id number] 11:56:00 Test Item Value Reference Range Interpretation Comments POC-GLUCOSE METER 115 mg/dL 70-110 H : TESTED A [facility] (test code = CULLEN HILLMAN MD, 1538) 54965: Engineering Assistant/Techni preeti ID = [id number] for Florina pereira (contract), Jul C. DIFFICILE GDH [id number] 11:17:00 Test Item Value Reference Range Interpretation Comments CDT TOXIN (test code Negative Negative = [id number]) CDT GDH ANTIGEN Positive Negative A C. difficile present but (test code = toxin not detec aileen. [id number]) Indicates colon ization with non-toxige john strain or level of tox in below detectable leve ls. No need for enteri c isolation. Willard atment is rarely needed ( only when strong clinical suspicion for Clostridium difficile infection) Testing performed by [employer] Rapid Cassette Assay. For GDH, published sensitivity of the assay is 98.7% compared to cytotoxicity testing. For Toxin AB, published sensitivity is 87.8% and specificity 99.4% compared to cytotoxicity testing.Verification of kit performance was done by the [facility] Microbiology Lab prior to clinical use.RAD, CHEST, 1 VIEW, NON [id number] 04:09:00Reason for exam:->post opShould this be performed at the bedside?->Yes [facility] : 1940 Sex: MFINAL REPORT RAD, CHEST, 1 VIEW, NON DEPT INDICATION: post op COM PARISON: Prior day's exam FINDINGS: Portable frontal view of the chest. IMPRESSION: Support Lines: Interval removal of the right transjugular central venous catheter. Lungs and pleura: Hypoinflated lungs without focal consolidation or sizable effusion. No pneumothorax.Heart and mediastinum: Stable contours with enlarged heart.Additional findings: None. Signed: Cali Valentin MDRepcox [place] Verified Date/Time: 10/08/2020 04:09:22 [id number] 04:04:00 Test Item Value Reference Range Interpretation Comments MAGNESIUM (BEAKER) 2.3 mg/dL 1.6-2.6 Specimen slightly (test code = 627) hemolyzed Engineering Assistant ID - [id number] 04:04:00 Test Item Value Reference Range Interpretation Comments PHOSPHORUS (BEAKER) 3.6 mg/dL 2.3-4.7 Specimen slightly (test code = 604) hemolyzed Engineering Assistant ID - EDASIBASIC METABOLIC [id number] 04:04:00 Test Item Value Reference Range Interpretation Comments SODIUM (BEAKER) 139 meq/L 136-145 (test code = 381) POTASSIUM (BEAKER) 3.8 meq/L 3.5-5.1 Specimen slightly (test code = 379) hemolyzed CHLORIDE (BEAKER) 107 meq/L 98-107 (test code = 382) CO2 (BEAKER) (test 20 meq/L 22-29 L code = 355) BLOOD UREA NITROGEN 45 mg/dL 7-21 H (BEAKER) (test code = 354) CREATININE (BEAKER) 1.32 mg/dL 0.57-1.25 H Specimen slightly (test code = 358) hemolyzed GLUCOSE RANDOM 113 mg/dL 70-105 H (BEAKER) (test code = 652) CALCIUM (BEAKER) 8.2 mg/dL 8.4-10.2 L (test code = 697) EGFR (BEAKER) (test 52 mL/min/1.73 ESTIMA AILEEN GFR IS code = 1092) sq m NOT ACCURATE CREATININE CLEARANCE IN PREDICTING GLOMERULAR FILTRATION RATE . ESTIMATED GFR I S NOT APPLICABLE FOR DIALYSIS PATIEN TS. Engineering Assistant ID - EDASICBC W/PLT COUNT & AUTO [id number] 03:48:00 Test Item Value Reference Range Interpretation Comments WHITE BLOOD CELL COUNT (BEAKER) 9.7 K/ L 3.5-10.5 (test code = 775) RED BLOOD CELL COUNT (BEAKER) 2.94 M/ L 4.63-6.08 L (test code = 761) HEMOGLOBIN (BEAKER) (test code = 8.8 GM/DL 13.7-17.5 L 410) HEMATOCRIT (BEAKER) (test code = 27.3 % 40.1-51.0 L 411) MEAN CORPUSCULAR VOLUME (BEAKER) 92.9 fL 79.0-92.2 H (test code = 753) MEAN CORPUSCULAR HEMOGLOBIN 29.9 pg 25.7-32.2 (BEAKER) (test code = 751) MEAN CORPUSCULAR HEMOGLOBIN CONC 32.2 GM/DL 32.3-36.5 L (BEAKER) (test code = 752) RED CELL DISTRIBUTION WIDTH 13.2 % 11.6-14.4 (BEAKER) (test code = 412) PLATELET COUNT (BEAKER) (test 171 K/CU MM 150-450 code = 756) MEAN PLATELET VOLUME (BEAKER) 10.9 fL 9.4-12.4 (test code = 754) NUCLEATED RED BLOOD CELLS 0 /100 WBC 0-0 (BEAKER) (test code = 413) NEUTROPHILS RELATIVE PERCENT 73 % (BEAKER) (test code = 429) LYMPHOCYTES RELATIVE PERCENT 10 % (BEAKER) (test code = 430) MONOCYTES RELATIVE PERCENT 12 % (BEAKER) (test code = 431) EOSINOPHILS RELATIVE PERCENT 3 % (BEAKER) (test code = 432) BASOPHILS RELATIVE PERCENT 1 % (BEAKER) (test code = 437) NEUTROPHILS ABSOLUTE COUNT 7.03 K/ L 1.78-5.38 H (BEAKER) (test code = 670) LYMPHOCYTES ABSOLUTE COUNT 0.94 K/ L 1.32-3.57 L (BEAKER) (test code = 414) MONOCYTES ABSOLUTE COUNT (BEAKER) 1.17 K/ L 0.30-0.82 H (test code = 415) EOSINOPHILS ABSOLUTE COUNT 0.26 K/ L 0.04-0.54 (BEAKER) (test code = 416) BASOPHILS ABSOLUTE COUNT (BEAKER) 0.05 K/ L 0.01-0.08 (test code = 417) IMMATURE GRANULOCYTES-RELATIVE 2 % 0-1 H PERCENT (BEAKER) (test code = 2801) [id number] 18:46:00 Test Item Value Reference Range Interpretation Comments POTASSIUM (BEAKER) 3.9 meq/L 3.5-5.1 Specimen slightly (test code = 379) hemolyzed Engineering Assistant ID - DBBASIC METABOLIC [id number] 14:49:00 Test Item Value Reference Range Interpretation Comments SODIUM (BEAKER) 137 meq/L 136-145 (test code = 381) POTASSIUM (BEAKER) 3.7 meq/L 3.5-5.1 (test code = 379) CHLORIDE (BEAKER) 106 meq/L 98-107 (test code = 382) CO2 (BEAKER) (test 18 meq/L 22-29 L code = 355) BLOOD UREA NITROGEN 39 mg/dL 7-21 H (BEAKER) (test code = 354) CREATININE (BEAKER) 1.08 mg/dL 0.57-1.25 (test code = 358) GLUCOSE RANDOM 92 mg/dL 70-105 (BEAKER) (test code = 652) CALCIUM (BEAKER) 7.8 mg/dL 8.4-10.2 L (test code = 697) EGFR (BEAKER) (test 66 mL/min/1.73 ESTIMA AILEEN GFR IS code = 1092) sq m NOT ACCURATE CREATININE CLEARANCE IN PREDICTING GLOMERULAR FILTRATION RATE . ESTIMATED GFR I S NOT APPLICABLE FOR DIALYSIS PATIEN TS. Engineering Assistant ID - [id number] 14:48:00 Test Item Value Reference Range Interpretation Comments MAGNESIUM (BEAKER) (test code = 2.3 mg/dL 1.6-2.6 627) Engineering Assistant ID - DBVANCOMYCIN LEVEL, [id number] 11:42:00 Test Item Value Reference Range Interpretation Comments VANCOMYCIN TROUGH (BEAKER) (test 17.2 ug/mL 10.0-20.0 code = 522) Engineering Assistant ID - DBBASIC METABOLIC [id number] 07:20:00 Test Item Value Reference Range Interpretation Comments SODIUM (BEAKER) 136 meq/L 136-145 (test code = 381) POTASSIUM (BEAKER) 3.5 meq/L 3.5-5.1 (test code = 379) CHLORIDE (BEAKER) 105 meq/L 98-107 (test code = 382) CO2 (BEAKER) (test 20 meq/L 22-29 L code = 355) BLOOD UREA NITROGEN 46 mg/dL 7-21 H (BEAKER) (test code = 354) CREATININE (BEAKER) 1.13 mg/dL 0.57-1.25 (test code = 358) GLUCOSE RANDOM 118 mg/dL 70-105 H (BEAKER) (test code = 652) CALCIUM (BEAKER) 8.2 mg/dL 8.4-10.2 L (test code = 697) EGFR (BEAKER) (test 63 mL/min/1.73 ESTIMA AILEEN GFR IS code = 1092) sq m NOT ACCURATE CREATININE CLEARANCE IN PREDICTING GLOMERULAR FILTRATION RATE . ESTIMATED GFR I S NOT APPLICABLE FOR DIALYSIS PATIEN TS. Engineering Assistant ID - [id number] 07:20:00 Test Item Value Reference Range Interpretation Comments MAGNESIUM (BEAKER) (test code = 2.5 mg/dL 1.6-2.6 627) Engineering Assistant ID - [id number] 07:20:00 Test Item Value Reference Range Interpretation Comments PHOSPHORUS (BEAKER) (test code = 3.1 mg/dL 2.3-4.7 604) Engineering Assistant ID - EDASIBLOOD GAS, [id number] 05:52:00 Test Item Value Reference Range Interpretation Comments PH ARTERIAL (BEAKER) (test code = 7.46 7.35-7.45 H 383) PCO2 ARTERIAL (BEAKER) (test code 32 mm Hg 35-45 L = 384) PO2 ARTERIAL (BEAKER) (test code 172 mm Hg 80-90 H = 385) O2 SATURATION ARTERIAL (BEAKER) 99.3 % 96.0-97.0 H (test code = 386) HCO3 ARTERIAL (BEAKER) (test code 22 mmol/L 21-29 = 388) BASE EXCESS ARTERIAL (BEAKER) -1.1 mmol/L -2.0-3.0 (test code = 387) PATIENT TEMPERATURE (BEAKER) 36.5 (test code = 1818) FIO2 (BEAKER) (test code = 1819) 50.0 CBC W/PLT COUNT & AUTO [id number] 05:47:00 Test Item Value Reference Range Interpretation Comments WHITE BLOOD CELL COUNT (BEAKER) 10.1 K/ L 3.5-10.5 (test code = 775) RED BLOOD CELL COUNT (BEAKER) 2.73 M/ L 4.63-6.08 L (test code = 761) HEMOGLOBIN (BEAKER) (test code = 8.4 GM/DL 13.7-17.5 L 410) HEMATOCRIT (BEAKER) (test code = 24.8 % 40.1-51.0 L 411) MEAN CORPUSCULAR VOLUME (BEAKER) 90.8 fL 79.0-92.2 (test code = 753) MEAN CORPUSCULAR HEMOGLOBIN 30.8 pg 25.7-32.2 (BEAKER) (test code = 751) MEAN CORPUSCULAR HEMOGLOBIN CONC 33.9 GM/DL 32.3-36.5 (BEAKER) (test code = 752) RED CELL DISTRIBUTION WIDTH 13.0 % 11.6-14.4 (BEAKER) (test code = 412) PLATELET COUNT (BEAKER) (test 138 K/CU MM 150-450 L code = 756) MEAN PLATELET VOLUME (BEAKER) 10.8 fL 9.4-12.4 (test code = 754) NUCLEATED RED BLOOD CELLS 0 /100 WBC 0-0 (BEAKER) (test code = 413) NEUTROPHILS RELATIVE PERCENT 76 % (BEAKER) (test code = 429) LYMPHOCYTES RELATIVE PERCENT 8 % (BEAKER) (test code = 430) MONOCYTES RELATIVE PERCENT 12 % (BEAKER) (test code = 431) EOSINOPHILS RELATIVE PERCENT 2 % (BEAKER) (test code = 432) BASOPHILS RELATIVE PERCENT 0 % (BEAKER) (test code = 437) NEUTROPHILS ABSOLUTE COUNT 7.74 K/ L 1.78-5.38 H (BEAKER) (test code = 670) LYMPHOCYTES ABSOLUTE COUNT 0.81 K/ L 1.32-3.57 L (BEAKER) (test code = 414) MONOCYTES ABSOLUTE COUNT (BEAKER) 1.22 K/ L 0.30-0.82 H (test code = 415) EOSINOPHILS ABSOLUTE COUNT 0.19 K/ L 0.04-0.54 (BEAKER) (test code = 416) BASOPHILS ABSOLUTE COUNT (BEAKER) 0.03 K/ L 0.01-0.08 (test code = 417) IMMATURE GRANULOCYTES-RELATIVE 1 % 0-1 PERCENT (BEAKER) (test code = 2801) RAD, CHEST, 1 VIEW, NON [id number] 04:16:00Reason for exam:->post opShould this be performed at the bedside?->Yes [facility] : 1940 Sex: MFINAL REPORT RAD, CHEST, 1 VIEW, NON DEPT INDICATION: post op COM PARISON: Prior day's exam FINDINGS: Portable frontal view of the chest. IMPRESSION: Support Lines: Stable. Lungs and pleura: Improved aeration of the bilateral lung bases. No large pleural effusion.Previously seen left apical pneumothorax is not identified on the current examination. No pneumothorax.Heart and mediastinum: Stable contours. Stable surgical changes.Additional findings: None. Signed:Jesus Vogel Verified Date/Time: 10/07/2020 04:16:04 BASIC METABOLIC [id number] 23:59:00 Test Item Value Reference Range Interpretation Comments SODIUM (BEAKER) 132 meq/L 136-145 L (test code = 381) POTASSIUM (BEAKER) 3.1 meq/L 3.5-5.1 L (test code = 379) CHLORIDE (BEAKER) 101 meq/L 98-107 (test code = 382) CO2 (BEAKER) (test 21 meq/L 22-29 L code = 355) BLOOD UREA NITROGEN 43 mg/dL 7-21 H (BEAKER) (test code = 354) CREATININE (BEAKER) 1.19 mg/dL 0.57-1.25 (test code = 358) GLUCOSE RANDOM 125 mg/dL 70-105 H (BEAKER) (test code = 652) CALCIUM (BEAKER) 7.9 mg/dL 8.4-10.2 L (test code = 697) EGFR (BEAKER) (test 59 mL/min/1.73 ESTIMA AILEEN GFR IS code = 1092) sq m NOT ACCURATE CREATININE CLEARANCE IN PREDICTING GLOMERULAR FILTRATION RATE . ESTIMATED GFR I S NOT APPLICABLE FOR DIALYSIS PATIEN TS. Engineering Assistant ID - [id number] 23:58:00 Test Item Value Reference Range Interpretation Comments MAGNESIUM (BEAKER) (test code = 2.5 mg/dL 1.6-2.6 627) Engineering Assistant ID - DBRAD, ABDOMEN/KUB, 1 VIEW [id number] 18:00:00Reason for exam:- >abdominal distensionShould this be performed at the bedside?->Yes [facility] 1940 Sex: MFINAL REPORT History: Abdominal distention. FINDINGS: Compared with October 05, 2020, moderate colonic gas, small bowel gas in stool are present in a nonspecific pattern. As before, there are mildly prominent gas-filled small bowel loops which could represent ileus. No definite obstruction and no free air to suggest perforation. No abnormal abdominal or pelvic calcifications are identified. Bones are unremarkable. IMPRESSION: 1. Nonspecific bowel gas pattern which could represent a mild ileus. There is no significant change since the previous study. Signed: Tunde Garcia MDReport Verified Date/Time: 10/06/2020 18:00:34 Reading Location: [address] Transitional Reading Room POCT- GLUCOSE [id number] 16:50:00 Test Item Value Reference Range Interpretation Comments POC-GLUCOSE METER 112 mg/dL 70-110 H : TESTED A T [facility] 6720 (BEAKER) (test code = CULLEN Alvarado [facility], 1538) [id number]: Engineering Assistant/Techni preeti ID = [id number] for CAROLINA ACOSTA BASIC METABOLIC [id number] 16:26:00 Test Item Value Reference Range Interpretation Comments SODIUM (BEAKER) 135 meq/L 136-145 L (test code = 381) POTASSIUM (BEAKER) 3.3 meq/L 3.5-5.1 L (test code = 379) CHLORIDE (BEAKER) 100 meq/L 98-107 (test code = 382) CO2 (BEAKER) (test 23 meq/L 22-29 code = 355) BLOOD UREA NITROGEN 46 mg/dL 7-21 H (BEAKER) (test code = 354) CREATININE (BEAKER) 1.35 mg/dL 0.57-1.25 H (test code = 358) GLUCOSE RANDOM 111 mg/dL 70-105 H (BEAKER) (test code = 652) CALCIUM (BEAKER) 8.0 mg/dL 8.4-10.2 L (test code = 697) EGFR (BEAKER) (test 51 mL/min/1.73 ESTIMA AILEEN GFR IS code = 1092) sq m NOT ACCURATE CREATININE CLEARANCE IN PREDICTING GLOMERULAR FILTRATION RATE . ESTIMATED GFR I S NOT APPLICABLE FOR DIALYSIS PATIEN TS. Engineering Assistant ID - [id number] 16:26:00 Test Item Value Reference Range Interpretation Comments MAGNESIUM (BEAKER) (test code = 2.2 mg/dL 1.6-2.6 627) Engineering Assistant ID - DBSPUTUM CULTURE + GRAM [id number] 13:27:00 Test Item Value Reference Range Interpretation Comments CULTURE (BEAKER) <1+ Normal respiratory (test code = 1095) olena present GRAM STAIN RESULT 1+ WBCs (BEAKER) (test code = 1123) GRAM STAIN RESULT 0-5 epithelial cells (BEAKER) (test code = 65638) GRAM STAIN RESULT No organisms seen (BEAKER) (test code = 89126) VANCOMYCIN LEVEL, [id number] 10:51:00 Test Item Value Reference Range Interpretation Comments VANCOMYCIN TROUGH (BEAKER) (test 16.1 ug/mL 10.0-20.0 code = 522) Engineering Assistant ID - EDASIPOCT-GLUCOSE [id number] 07:53:00 Test Item Value Reference Range Interpretation Comments POC-GLUCOSE METER 118 mg/dL 70-110 H : [facility] (BEAKER) (test code = [facility], 1538) [id number]: Engineering Assistant/Techni preeti ID = [id number] for CAROLINA ACOSTA BASIC METABOLIC [id number] 04:59:00 Test Item Value Reference Range Interpretation Comments SODIUM (BEAKER) 135 meq/L 136-145 L (test code = 381) POTASSIUM (BEAKER) 3.6 meq/L 3.5-5.1 (test code = 379) CHLORIDE (BEAKER) 101 meq/L 98-107 (test code = 382) CO2 (BEAKER) (test 21 meq/L 22-29 L code = 355) BLOOD UREA NITROGEN 42 mg/dL 7-21 H (BEAKER) (test code = 354) CREATININE (BEAKER) 1.34 mg/dL 0.57-1.25 H (test code = 358) GLUCOSE RANDOM 140 mg/dL 70-105 H (BEAKER) (test code = 652) CALCIUM (BEAKER) 8.1 mg/dL 8.4-10.2 L (test code = 697) EGFR (BEAKER) (test 52 mL/min/1.73 ESTIMA AILEEN GFR IS code = 1092) sq m NOT ACCURATE CREATININE CLEARANCE IN PREDICTING GLOMERULAR FILTRATION RATE . ESTIMATED GFR I S NOT APPLICABLE FOR DIALYSIS PATIEN TS. Engineering Assistant ID - [id number] 04:59:00 Test Item Value Reference Range Interpretation Comments MAGNESIUM (BEAKER) (test code = 2.3 mg/dL 1.6-2.6 627) Engineering Assistant ID - [id number] 04:59:00 Test Item Value Reference Range Interpretation Comments PHOSPHORUS (BEAKER) (test code = 3.6 mg/dL 2.3-4.7 604) Engineering Assistant ID - EDASICBC W/PLT COUNT & AUTO [id number] 04:55:00 Test Item Value Reference Range Interpretation Comments WHITE BLOOD CELL COUNT (BEAKER) 9.9 K/ L 3.5-10.5 (test code = 775) RED BLOOD CELL COUNT (BEAKER) 2.75 M/ L 4.63-6.08 L (test code = 761) HEMOGLOBIN (BEAKER) (test code = 8.3 GM/DL 13.7-17.5 L 410) HEMATOCRIT (BEAKER) (test code = 24.5 % 40.1-51.0 L 411) MEAN CORPUSCULAR VOLUME (BEAKER) 89.1 fL 79.0-92.2 (test code = 753) MEAN CORPUSCULAR HEMOGLOBIN 30.2 pg 25.7-32.2 (BEAKER) (test code = 751) MEAN CORPUSCULAR HEMOGLOBIN CONC 33.9 GM/DL 32.3-36.5 (BEAKER) (test code = 752) RED CELL DISTRIBUTION WIDTH 12.9 % 11.6-14.4 (BEAKER) (test code = 412) PLATELET COUNT (BEAKER) (test 124 K/CU MM 150-450 L code = 756) MEAN PLATELET VOLUME (BEAKER) 12.2 fL 9.4-12.4 (test code = 754) NUCLEATED RED BLOOD CELLS 0 /100 WBC 0-0 (BEAKER) (test code = 413) NEUTROPHILS RELATIVE PERCENT 79 % (BEAKER) (test code = 429) LYMPHOCYTES RELATIVE PERCENT 7 % (BEAKER) (test code = 430) MONOCYTES RELATIVE PERCENT 13 % (BEAKER) (test code = 431) EOSINOPHILS RELATIVE PERCENT 0 % (BEAKER) (test code = 432) BASOPHILS RELATIVE PERCENT 0 % (BEAKER) (test code = 437) NEUTROPHILS ABSOLUTE COUNT 7.86 K/ L 1.78-5.38 H (BEAKER) (test code = 670) LYMPHOCYTES ABSOLUTE COUNT 0.68 K/ L 1.32-3.57 L (BEAKER) (test code = 414) MONOCYTES ABSOLUTE COUNT (BEAKER) 1.30 K/ L 0.30-0.82 H (test code = 415) EOSINOPHILS ABSOLUTE COUNT 0.01 K/ L 0.04-0.54 L (BEAKER) (test code = 416) BASOPHILS ABSOLUTE COUNT (BEAKER) 0.02 K/ L 0.01-0.08 (test code = 417) IMMATURE GRANULOCYTES-RELATIVE 1 % 0-1 PERCENT (BEAKER) (test code = 2801) BLOOD GAS, [id number] 04:18:00 Test Item Value Reference Range Interpretation Comments PH ARTERIAL (BEAKER) (test code = 7.49 7.35-7.45 H 383) PCO2 ARTERIAL (BEAKER) (test code 31 mm Hg 35-45 L = 384) PO2 ARTERIAL (BEAKER) (test code = 110 mm Hg 80-90 H 385) O2 SATURATION ARTERIAL (BEAKER) 98.4 % 96.0-97.0 H (test code = 386) HCO3 ARTERIAL (BEAKER) (test code 23 mmol/L 21-29 = 388) BASE EXCESS ARTERIAL (BEAKER) 0.2 mmol/L -2.0-3.0 (test code = 387) PATIENT TEMPERATURE (BEAKER) (test 37.0 code = 1818) FIO2 (BEAKER) (test code = 1819) 70.0 RAD, CHEST, 1 VIEW, NON [id number] 03:27:00Reason for exam:->post opShould this be performed at the bedside?->Yes [facility] : 1940 Sex: MFINAL REPORT RAD, CHEST, 1 VIEW, NON DEPT INDICATION: post op COM PARISON: Prior day's exam FINDINGS: Portable frontal view of the chest. IMPRESSION: Support Lines: No significant change. Lungs and pleura: Increased hazy opacities at the lung bases are present small layering pleural effusions or basilar atelectasis. Mild vascular congestion. Trace left apical pneumothorax is stable. Previously noted right apical pneumothorax no longer appreciated.Heart and mediastinum: Stable contours. Additional findings: None. Signed: Jeferson Francis MDReport Verified Date/Time: 10/06/2020 03:27:23 -COV2/RT-PCR ([facility])2020-10-05 23:40:00 Test Item Value Reference Range Interpretation Comments SARS-COV2/RT-PCR (test Negative Not Detected, Negative, code = 1989742) See external report for linked test SARS-COV-2 PERFORMING LAB [facility] (test code = 7396548) Negative result for this test determines that SARS-CoV-2 RNA was not present in the specimen above the Limit of Detection (LOD). However, Negative results do not preclude SARS-CoV-2 infection and should not be used as the sole basis for treatment or patient management decisions. Negative results mustbe combined with clinical observations, patient history, and epidemiological information. A false negative result may occur if a specimen is improperly collected, transported or handled. A false negative result should be considered if patient's recent exposures or clinical presentation indicate that COVID-19 (SARS-CoV-2) is likely and diagnostic tests for other causes of illness are negative. Re-testing should be considered in cases of suspected false negatives.The limit of detection for this assay is 100 copies/mL.This SARS CoV-2 test is a real-time RT-PCR test intended for the qualitative detection of nucleic acid from SARS-CoV-2 in a nasopharyngeal swab specimen collected from individuals suspected of COVID-19 by their healthcare provider.This test has not been Food and Drug Administration (FDA) cleared or approved. This is a modified version of an approved Emergency Use Authorization (EUA) and is in the process of review by the FDA. Once authorized by the FDA, the issued EUA will be effective until the declaration that circumstances exist justifying the authorization of the emergency use of in vitro diagnostic tests for detection and/or diagnosis of COVID-19 is terminated under Section 564(b)(2) of the Act or the EUA is revoked under Section 564(g) of the Act.Testing was performed using the Steinberg SARS-CoV-2 assay.Fact Sheet for Healthcare Providers:https://www.Gifi.steinberg/boy/ KC_PPWL-RmF-7_STY_Dynu_Jbuzm_51-784603.pdfFact Sheet for Healthcare Patients:https://www.Gifi.[employer] danay/boy/XK_SONL-QxF-1_Adsaohr_Qzeo_Lcrqu_KQ_77-346365E8.pdfPerforming Laboratory:[address] [address] BASIC METABOLIC [id number] 18:27:00 Test Item Value Reference Range Interpretation Comments SODIUM (BEAKER) 135 meq/L 136-145 L (test code = 381) POTASSIUM (BEAKER) 3.5 meq/L 3.5-5.1 (test code = 379) CHLORIDE (BEAKER) 101 meq/L 98-107 (test code = 382) CO2 (BEAKER) (test 22 meq/L 22-29 code = 355) BLOOD UREA NITROGEN 35 mg/dL 7-21 H (BEAKER) (test code = 354) CREATININE (BEAKER) 0.97 mg/dL 0.57-1.25 (test code = 358) GLUCOSE RANDOM 134 mg/dL 70-105 H (BEAKER) (test code = 652) CALCIUM (BEAKER) 8.4 mg/dL 8.4-10.2 (test code = 697) EGFR (BEAKER) (test 75 mL/min/1.73 ESTIMA AILEEN GFR IS code = 1092) sq m NOT ACCURATE CREATININE CLEARANCE IN PREDICTING GLOMERULAR FILTRATION RATE . ESTIMATED GFR I S NOT APPLICABLE FOR DIALYSIS PATIEN TS. Engineering Assistant ID - [id number] 18:27:00 Test Item Value Reference Range Interpretation Comments MAGNESIUM (BEAKER) (test code = 2.1 mg/dL 1.6-2.6 627) Engineering Assistant ID - DBPOCT-GLUCOSE [id number] 16:40:00 Test Item Value Reference Range Interpretation Comments POC-GLUCOSE METER 111 mg/dL 70-110 H : TESTED A T [facility] 6720 (BEAKER) (test code = [facility], 1538) [id number]: Engineering Assistant/Techni preeti ID = [id number] for NGOC S[place] BLOOD GAS, [id number] 13:49:00 Test Item Value Reference Range Interpretation Comments PH ARTERIAL (BEAKER) (test code = 7.49 7.35-7.45 H 383) PCO2 ARTERIAL (BEAKER) (test code 34 mm Hg 35-45 L = 384) PO2 ARTERIAL (BEAKER) (test code = 140 mm Hg 80-90 H 385) O2 SATURATION ARTERIAL (BEAKER) 99.0 % 96.0-97.0 H (test code = 386) HCO3 ARTERIAL (BEAKER) (test code 25 mmol/L 21-29 = 388) BASE EXCESS ARTERIAL (BEAKER) 2.0 mmol/L -2.0-3.0 (test code = 387) PATIENT TEMPERATURE (BEAKER) (test 36.9 code = 1818) FIO2 (BEAKER) (test code = 1819) 100.0 POCT-GLUCOSE [id number] 12:05:00 Test Item Value Reference Range Interpretation Comments POC-GLUCOSE METER 135 mg/dL 70-110 H : TESTED A T [facility] 6720 (BEAKER) (test code = [facility], 1538) [id number]: Engineering Assistant/Techni preeti ID = [id number] for CAROLINA ACOSTA VANCOMYCIN LEVEL, [id number] 10:20:00 Test Item Value Reference Range Interpretation Comments VANCOMYCIN TROUGH (BEAKER) (test 9.5 ug/mL 10.0-20.0 L code = 522) Engineering Assistant ID - JENNY CBASIC METABOLIC [id number] 10:20:00 Test Item Value Reference Range Interpretation Comments SODIUM (BEAKER) 133 meq/L 136-145 L (test code = 381) POTASSIUM (BEAKER) 3.9 meq/L 3.5-5.1 (test code = 379) CHLORIDE (BEAKER) 101 meq/L 98-107 (test code = 382) CO2 (BEAKER) (test 22 meq/L 22-29 code = 355) BLOOD UREA NITROGEN 34 mg/dL 7-21 H (BEAKER) (test code = 354) CREATININE (BEAKER) 0.89 mg/dL 0.57-1.25 (test code = 358) GLUCOSE RANDOM 120 mg/dL 70-105 H (BEAKER) (test code = 652) CALCIUM (BEAKER) 8.8 mg/dL 8.4-10.2 (test code = 697) EGFR (BEAKER) (test 83 mL/min/1.73 ESTIMA AILEEN GFR IS code = 1092) sq m NOT ACCURATE CREATININE CLEARANCE IN PREDICTING GLOMERULAR FILTRATION RATE . ESTIMATED GFR I S NOT APPLICABLE FOR DIALYSIS PATIEN TS. Engineering Assistant ID - JENNY CPOCT-GLUCOSE [id number] 08:45:00 Test Item Value Reference Range Interpretation Comments POC-GLUCOSE METER 114 mg/dL 70-110 H : TESTED A T [facility] 6720 (BEAKER) (test code = CULLEN Alvarado [facility], 1538) [address]: Engineering Assistant/Techni preeti ID = [id number] for ALLY DODSON RAD, ABDOMEN/KUB, 1 VIEW [id number] 05:36:00Reason for exam:->abdominal distentionShould this be performed at the bedside?->Yes [facility] : 1940 Sex: MFINAL REPORT RAD, ABDOMEN/KUB, 1 VIEW AP CLINICAL HISTORY: abdominal distention TECHNIQUE: RAD, ABDOMEN/KUB, 1 VIEW AP COMPARISON: October 02, 2020 IMPRESSION: Dilatedsmall bowel loops within the right lower quadrant are redemonstrated and concerning for ileus or mechanical obstruction. Gas distended large bowel is again noted. No pneumatosis or free air identified.Stable osseous structures. Signed: Jeferson Francisort Verified Date/Time: 10/05/2020 05:36:47 RAD, CHEST, 1 VIEW, NON [id number] 05:13:00Reason for exam:->post opShould this be performed at the bedside?->Yes [facility] : 1940 Sex: MFINAL REPORT RAD, CHEST, 1 VIEW, NON DEPT INDICATION: post op COM PARISON: Prior day's exam FINDINGS: Portable frontal view of the chest. IMPRESSION: Support Lines: Interval removal the previously seen bilateral chest tubes. Otherwise unchanged support apparatus.Lungs and pleura: Unchanged airspace and pleural opacities. Trace biapical pneumothoraces.Heart and med iastinum: Stable contours. Stable surgical changes.Additional findings: None. The findings were discussed with nurse on cv2 at the time of dictation who will relay them to the physician. Signed: Jesus Vogel MDReport Verified Date/Time: 10/05/2020 05:13:33 [id number] 03:23:00 Test Item Value Reference Range Interpretation Comments MAGNESIUM (BEAKER) 2.2 mg/dL 1.6-2.6 Specimen slightly (test code = 627) hemolyzed Engineering Assistant ID - DBBASIC METABOLIC [id number] 03:23:00 Test Item Value Reference Range Interpretation Comments SODIUM (BEAKER) 134 meq/L 136-145 L (test code = 381) POTASSIUM (BEAKER) 3.9 meq/L 3.5-5.1 Specimen slightly (test code = 379) hemolyzed CHLORIDE (BEAKER) 101 meq/L 98-107 (test code = 382) CO2 (BEAKER) (test 23 meq/L 22-29 code = 355) BLOOD UREA NITROGEN 35 mg/dL 7-21 H (BEAKER) (test code = 354) CREATININE (BEAKER) 0.93 mg/dL 0.57-1.25 Specimen slightly (test code = 358) hemolyzed GLUCOSE RANDOM 124 mg/dL 70-105 H (BEAKER) (test code = 652) CALCIUM (BEAKER) 8.6 mg/dL 8.4-10.2 (test code = 697) EGFR (BEAKER) (test 79 mL/min/1.73 ESTIMA AILEEN GFR IS code = 1092) sq m NOT ACCURATE CREATININE CLEARANCE IN PREDICTING GLOMERULAR FILTRATION RATE . ESTIMATED GFR I S NOT APPLICABLE FOR DIALYSIS PATIEN TS. Engineering Assistant ID - DBCBC W/PLT COUNT & AUTO [id number] 03:19:00 Test Item Value Reference Range Interpretation Comments WHITE BLOOD CELL COUNT (BEAKER) 16.2 K/ L 3.5-10.5 H (test code = 775) RED BLOOD CELL COUNT (BEAKER) 2.80 M/ L 4.63-6.08 L (test code = 761) HEMOGLOBIN (BEAKER) (test code = 8.6 GM/DL 13.7-17.5 L 410) HEMATOCRIT (BEAKER) (test code = 25.5 % 40.1-51.0 L 411) MEAN CORPUSCULAR VOLUME (BEAKER) 91.1 fL 79.0-92.2 (test code = 753) MEAN CORPUSCULAR HEMOGLOBIN 30.7 pg 25.7-32.2 (BEAKER) (test code = 751) MEAN CORPUSCULAR HEMOGLOBIN CONC 33.7 GM/DL 32.3-36.5 (BEAKER) (test code = 752) RED CELL DISTRIBUTION WIDTH 12.9 % 11.6-14.4 (BEAKER) (test code = 412) PLATELET COUNT (BEAKER) (test code 93 K/CU MM 150-450 L = 756) MEAN PLATELET VOLUME (BEAKER) 12.2 fL 9.4-12.4 (test code = 754) NUCLEATED RED BLOOD CELLS (BEAKER) 0 /100 WBC 0-0 (test code = 413) NEUTROPHILS RELATIVE PERCENT 79 % (BEAKER) (test code = 429) LYMPHOCYTES RELATIVE PERCENT 12 % (BEAKER) (test code = 430) MONOCYTES RELATIVE PERCENT 8 % (BEAKER) (test code = 431) EOSINOPHILS RELATIVE PERCENT 0 % (BEAKER) (test code = 432) BASOPHILS RELATIVE PERCENT 0 % (BEAKER) (test code = 437) NEUTROPHILS ABSOLUTE COUNT 12.79 K/ L 1.78-5.38 H (BEAKER) (test code = 670) LYMPHOCYTES ABSOLUTE COUNT 1.93 K/ L 1.32-3.57 (BEAKER) (test code = 414) MONOCYTES ABSOLUTE COUNT (BEAKER) 1.31 K/ L 0.30-0.82 H (test code = 415) EOSINOPHILS ABSOLUTE COUNT 0.03 K/ L 0.04-0.54 L (BEAKER) (test code = 416) BASOPHILS ABSOLUTE COUNT (BEAKER) 0.02 K/ L 0.01-0.08 (test code = 417) IMMATURE GRANULOCYTES-RELATIVE 1 % 0-1 PERCENT (BEAKER) (test code = 2801) [id number] 03:14:00 Test Item Value Reference Range Interpretation Comments PARTIAL THROMBOPLASTIN TIME 41.5 seconds 22.5-36.0 H (BEAKER) (test code = 760) PROTHROMBIN [id number] 03:13:00 Test Item Value Reference Range Interpretation Comments PROTIME (BEAKER) 17.7 seconds 11.9-14.2 H (test code = 759) INR (BEAKER) (test 1.50 See_Comment [Automat ed message] code = 370) The system [employer] generated this result transmitted ref erence range: <=5.90. The reference range was not used to int erpret this result as normal/abnormal . Effective 12/15/2018: PT Reference Range ChangeNew: 11.9-14.2 Previous: 11.7- 14.7RECOMMENDED COUMADIN/WARFARIN INR THERAPY RANGESSTANDARD DOSE: 2.0-3.0 Includes: PROPHYLAXIS for venous thrombosis, systemic embolization; TREATMENT for venous thrombosis and/or pulmonary embolus.HIGH RISK: Target INR is2.5-3.5 for patients wiht mechanical heart valves.BLOOD GAS, [id number] 03:00:00 Test Item Value Reference Range Interpretation Comments PH ARTERIAL (BEAKER) (test code = 7.51 7.35-7.45 H 383) PCO2 ARTERIAL (BEAKER) (test code 31 mm Hg 35-45 L = 384) PO2 ARTERIAL (BEAKER) (test code = 81 mm Hg 80-90 385) O2 SATURATION ARTERIAL (BEAKER) 97.0 % 96.0-97.0 (test code = 386) HCO3 ARTERIAL (BEAKER) (test code 25 mmol/L 21-29 = 388) BASE EXCESS ARTERIAL (BEAKER) 1.7 mmol/L -2.0-3.0 (test code = 387) PATIENT TEMPERATURE (BEAKER) (test 36.8 code = 1818) FIO2 (BEAKER) (test code = 1819) 100.0 BLOOD GAS, [id number] 00:05:00 Test Item Value Reference Range Interpretation Comments PH ARTERIAL (BEAKER) (test code = 7.46 7.35-7.45 H 383) PCO2 ARTERIAL (BEAKER) (test code 36 mm Hg 35-45 = 384) PO2 ARTERIAL (BEAKER) (test code = 110 mm Hg 80-90 H 385) O2 SATURATION ARTERIAL (BEAKER) 98.3 % 96.0-97.0 H (test code = 386) HCO3 ARTERIAL (BEAKER) (test code 25 mmol/L 21-29 = 388) BASE EXCESS ARTERIAL (BEAKER) 1.2 mmol/L -2.0-3.0 (test code = 387) PATIENT TEMPERATURE (BEAKER) (test 36.8 code = 1818) FIO2 (BEAKER) (test code = 1819) 100.0 BLOOD GAS, [id number] 20:35:00 Test Item Value Reference Range Interpretation Comments PH ARTERIAL (BEAKER) (test code = 7.53 7.35-7.45 H 383) PCO2 ARTERIAL (BEAKER) (test code 30 mm Hg 35-45 L = 384) PO2 ARTERIAL (BEAKER) (test code = 61 mm Hg 80-90 L 385) O2 SATURATION ARTERIAL (BEAKER) 94.4 % 96.0-97.0 L (test code = 386) HCO3 ARTERIAL (BEAKER) (test code 24 mmol/L 21-29 = 388) BASE EXCESS ARTERIAL (BEAKER) 1.6 mmol/L -2.0-3.0 (test code = 387) PATIENT TEMPERATURE (BEAKER) (test 36.6 code = 1818) FIO2 (BEAKER) (test code = 1819) 100.0 SODIUM NA-STAT [id number] 20:35:00 Test Item Value Reference Range Interpretation Comments SODIUM (BEAKER) (test code = 381) 132 meq/L 136-145 L GLUCOSE-STAT [id number] 20:35:00 Test Item Value Reference Range Interpretation Comments GLUCOSE RANDOM (BEAKER) (test code 126 mg/dL 70-110 H = 652) HGB/HCT (H&H) - STAT [id number] 20:35:00 Test Item Value Reference Range Interpretation Comments HEMOGLOBIN (BEAKER) (test code = 9.7 GM/DL 13.0-16.8 L 410) HEMATOCRIT (BEAKER) (test code = 29.0 % 40.0-50.0 L 411) POTASSIUM-STAT [id number] 20:34:00 Test Item Value Reference Range Interpretation Comments POTASSIUM (BEAKER) (test code = 3.8 meq/L 3.6-5.5 379) BASIC METABOLIC [id number] 16:59:00 Test Item Value Reference Range Interpretation Comments SODIUM (BEAKER) 134 meq/L 136-145 L (test code = 381) POTASSIUM (BEAKER) 4.1 meq/L 3.5-5.1 (test code = 379) CHLORIDE (BEAKER) 102 meq/L 98-107 (test code = 382) CO2 (BEAKER) (test 22 meq/L 22-29 code = 355) BLOOD UREA NITROGEN 34 mg/dL 7-21 H (BEAKER) (test code = 354) CREATININE (BEAKER) 1.12 mg/dL 0.57-1.25 (test code = 358) GLUCOSE RANDOM 134 mg/dL 70-105 H (BEAKER) (test code = 652) CALCIUM (BEAKER) 8.8 mg/dL 8.4-10.2 (test code = 697) EGFR (BEAKER) (test 63 mL/min/1.73 ESTIMA AILEEN GFR IS code = 1092) sq m NOT ACCURATE CREATININE CLEARANCE IN PREDICTING GLOMERULAR FILTRATION RATE . ESTIMATED GFR I S NOT APPLICABLE FOR DIALYSIS PATIEN TS. Engineering Assistant ID - [id number] 16:59:00 Test Item Value Reference Range Interpretation Comments MAGNESIUM (BEAKER) (test code = 2.3 mg/dL 1.6-2.6 627) Engineering Assistant ID - [id number] 16:59:00 Test Item Value Reference Range Interpretation Comments PHOSPHORUS (BEAKER) (test code = 2.6 mg/dL 2.3-4.7 604) Engineering Assistant ID - DBCALCIUM, [id number] 16:44:00 Test Item Value Reference Range Interpretation Comments CALCIUM IONIZED (BEAKER) (test 1.13 mmol/L 1.12-1.27 code = 698) PH, BLOOD (BEAKER) (test code = 7.49 1810) RAD, ABDOMEN/KUB, 1 VIEW [id number] 14:39:00Reason for exam:->Abdominal distentionShould this be performed at the bedside?->Yes [facility] : 1940 Sex: MFINAL REPORT RAD, ABDOMEN/KUB, 1 VIEW AP CLINICAL INDICATION: Ab dominal distention COMPARISON: None TECHNIQUE: Single, frontal radiograph of the abdomen. FINDINGS: The bowel gas pattern gaseous distention of multiple loops of small and large bowel concerning forileus or possibly distal obstruction The regional skeleton is intact. Signed: Josefina Greenberg MDReport Verified Date/Time: 10/04/2020 14:39:57 Reading Location: [facility] Radiology Reading Room CBC W/PLT COUNT & AUTO [id number] 07:05:00 Test Item Value Reference Range Interpretation Comments WHITE BLOOD CELL COUNT 22.4 K/ L 3.5-10.5 H (BEAKER) (test code = 775) RED BLOOD CELL COUNT 2.86 M/ L 4.63-6.08 L (BEAKER) (test code = 761) HEMOGLOBIN (BEAKER) 8.9 GM/DL 13.7-17.5 L (test code = 410) HEMATOCRIT (BEAKER) 26.2 % 40.1-51.0 L (test code = 411) MEAN CORPUSCULAR 91.6 fL 79.0-92.2 Discordant MCV result VOLUME (BEAKER) (test compar ed to previous code = 753) result; clinica l correlation req uired. MEAN CORPUSCULAR 31.1 pg 25.7-32.2 HEMOGLOBIN (BEAKER) (test code = 751) MEAN CORPUSCULAR 34.0 GM/DL 32.3-36.5 HEMOGLOBIN CONC (BEAKER) (test code = 752) RED CELL DISTRIBUTION 13.2 % 11.6-14.4 WIDTH (BEAKER) (test code = 412) PLATELET COUNT 85 K/CU MM 150-450 L (BEAKER) (test code = 756) MEAN PLATELET VOLUME 12.7 fL 9.4-12.4 H (BEAKER) (test code = 754) NUCLEATED RED BLOOD 0 /100 WBC 0-0 CELLS (BEAKER) (test code = 413) (CELLAVISION MANUAL DIFF)2020-10-04 07:05:00 Test Item Value Reference Range Interpretation Comments NEUTROPHILS - REL 84 % (CELLAVISION)(BEAKER) (test code = 2816) LYMPHOCYTES - REL 8 % (CELLAVISION)(BEAKER) (test code = 2817) MONOCYTES - REL 7 % (CELLAVISION)(BEAKER) (test code = 2818) BANDS - REL (CELLAVISION)(BEAKER) 1 % 0-10 (test code = 2826) NEUTROPHILS - ABS 18.82 K/ul 1.78-5.38 H (CELLAVISION)(BEAKER) (test code = 2830) LYMPHOCYTES - ABS 1.79 K/ul 1.32-3.57 (CELLAVISION)(BEAKER) (test code = 2831) MONOCYTES - ABS 1.57 K/uL 0.30-0.82 H (CELLAVISION)(BEAKER) (test code = 2832) BANDS - ABS (CELLAVISION)(BEAKER) 0.22 K/uL 0.00-0.80 (test code = 2840) TOTAL COUNTED (BEAKER) (test code 100 = 1351) WBC MORPHOLOGY (BEAKER) (test Normal code = 487) PLT MORPHOLOGY (BEAKER) (test Normal code = 486) ANISOCYTOSIS (BEAKER) (test code 1+ few = 961) MICROCYTES (BEAKER) (test code = 2+ moderate 965) ARTIFACT (CELLAVISION)(BEAKER) Present (test code = 3432) PLATELET CONCENTRATION Decreased (CELLAVISION)(BEAKER) (test code = 3438) Engineering Assistant ID - Maria Elena Conklin comments: Slide comments:BLOOD GAS, [id number] 06:31:00 Test Item Value Reference Range Interpretation Comments PH ARTERIAL (BEAKER) (test code = 7.45 7.35-7.45 383) PCO2 ARTERIAL (BEAKER) (test code 40 mm Hg 35-45 = 384) PO2 ARTERIAL (BEAKER) (test code = 74 mm Hg 80-90 L 385) O2 SATURATION ARTERIAL (BEAKER) 95.1 % 96.0-97.0 L (test code = 386) HCO3 ARTERIAL (BEAKER) (test code 27 mmol/L 21-29 = 388) BASE EXCESS ARTERIAL (BEAKER) 2.6 mmol/L -2.0-3.0 (test code = 387) PATIENT TEMPERATURE (BEAKER) (test 37.7 code = 1818) FIO2 (BEAKER) (test code = 1819) 100.0 [id number] 04:40:00 Test Item Value Reference Range Interpretation Comments MAGNESIUM (BEAKER) 2.3 mg/dL 1.6-2.6 Specimen slightly (test code = 627) hemolyzed Engineering Assistant ID - ACE MBASIC METABOLIC [id number] 04:40:00 Test Item Value Reference Range Interpretation Comments SODIUM (BEAKER) 137 meq/L 136-145 (test code = 381) POTASSIUM (BEAKER) 4.3 meq/L 3.5-5.1 Specimen slightly (test code = 379) hemolyzed CHLORIDE (BEAKER) 102 meq/L 98-107 (test code = 382) CO2 (BEAKER) (test 23 meq/L 22-29 code = 355) BLOOD UREA NITROGEN 32 mg/dL 7-21 H (BEAKER) (test code = 354) CREATININE (BEAKER) 1.15 mg/dL 0.57-1.25 Specimen slightly (test code = 358) hemolyzed GLUCOSE RANDOM 139 mg/dL 70-105 H (BEAKER) (test code = 652) CALCIUM (BEAKER) 8.8 mg/dL 8.4-10.2 (test code = 697) EGFR (BEAKER) (test 62 mL/min/1.73 ESTIMA AILEEN GFR IS code = 1092) sq m NOT ACCURATE CREATININE CLEARANCE IN PREDICTING GLOMERULAR FILTRATION RATE . ESTIMATED GFR I S NOT APPLICABLE FOR DIALYSIS PATIEN TS. Engineering Assistant ID - ACE MPROTHROMBIN TIME/[id number] 04:03:00 Test Item Value Reference Range Interpretation Comments PROTIME (BEAKER) 16.9 seconds 11.9-14.2 H (test code = 759) INR (BEAKER) (test 1.43 See_Comment [Automat ed message] code = 370) The system [employer] generated this result transmitted ref erence range: <=5.90. The reference range was not used to int erpret this result as normal/abnormal . Effective 12/15/2018: PT Reference Range ChangeNew: 11.9-14.2 Previous: 11.7- 14.7RECOMMENDED COUMADIN/WARFARIN INR THERAPY RANGESSTANDARD DOSE: 2.0-3.0 Includes: PROPHYLAXIS for venous thrombosis, systemic embolization; TREATMENT for venous thrombosis and/or pulmonary embolus.HIGH RISK: Target INR is2.5-3.5 for patients wiht mechanical heart valves.[id number] 03:59:00 Test Item Value Reference Range Interpretation Comments FIBRINOGEN LEVEL (BEAKER) (test 509 mg/dl 225-434 H code = 658) [id number] 03:59:00 Test Item Value Reference Range Interpretation Comments PARTIAL THROMBOPLASTIN TIME 42.9 seconds 22.5-36.0 H (BEAKER) (test code = 760) CALCIUM, [id number] 03:46:00 Test Item Value Reference Range Interpretation Comments CALCIUM IONIZED (BEAKER) (test 1.09 mmol/L 1.12-1.27 L code = 698) PH, BLOOD (BEAKER) (test code = 7.47 1810) BLOOD GAS, [id number] 03:44:00 Test Item Value Reference Range Interpretation Comments PH ARTERIAL (BEAKER) (test code = 7.48 7.35-7.45 H 383) PCO2 ARTERIAL (BEAKER) (test code 35 mm Hg 35-45 = 384) PO2 ARTERIAL (BEAKER) (test code = 74 mm Hg 80-90 L 385) O2 SATURATION ARTERIAL (BEAKER) 95.9 % 96.0-97.0 L (test code = 386) HCO3 ARTERIAL (BEAKER) (test code 25 mmol/L 21-29 = 388) BASE EXCESS ARTERIAL (BEAKER) 1.6 mmol/L -2.0-3.0 (test code = 387) PATIENT TEMPERATURE (BEAKER) (test 36.7 code = 1818) FIO2 (BEAKER) (test code = 1819) 100.0 RAD, CHEST, 1 VIEW, NON [id number] 01:52:00Reason for exam:->post opShould this be performed at the bedside?->Yes [facility] 1940 Sex: MFINAL REPORT RAD, CHEST, 1 VIEW, NON DEPT INDICATION: post op COM PARISON: Prior day's exam FINDINGS: Portable frontal view of the chest. IMPRESSION: Support Lines: Stable. Lungs and pleura: Unchanged airspace and pleural opacities. No pneumothorax.Heart and mediastinum: Stable contours. Stable surgical changes.Additional findings: None. Signed: Jesus Vogel Verified Date/Time: 10/04/2020 01:52:59 BASIC METABOLIC PANEL 2020-10-03 23:59:00 Test Item Value Reference Range Interpretation Comments SODIUM (BEAKER) 136 meq/L 136-145 (test code = 381) POTASSIUM (BEAKER) 4.1 meq/L 3.5-5.1 (test code = 379) CHLORIDE (BEAKER) 102 meq/L 98-107 (test code = 382) CO2 (BEAKER) (test 22 meq/L 22-29 code = 355) BLOOD UREA NITROGEN 32 mg/dL 7-21 H (BEAKER) (test code = 354) CREATININE (BEAKER) 1.12 mg/dL 0.57-1.25 (test code = 358) GLUCOSE RANDOM 153 mg/dL 70-105 H (BEAKER) (test code = 652) CALCIUM (BEAKER) 8.8 mg/dL 8.4-10.2 (test code = 697) EGFR (BEAKER) (test 63 mL/min/1.73 ESTIMA AILEEN GFR IS code = 1092) sq m NOT ACCURATE CREATININE CLEARANCE IN PREDICTING GLOMERULAR FILTRATION RATE . ESTIMATED GFR I S NOT APPLICABLE FOR DIALYSIS PATIEN TS. Engineering Assistant ID - PIAYA LBASIC METABOLIC [id number] 18:22:00 Test Item Value Reference Range Interpretation Comments SODIUM (BEAKER) 137 meq/L 136-145 (test code = 381) POTASSIUM (BEAKER) 4.1 meq/L 3.5-5.1 (test code = 379) CHLORIDE (BEAKER) 104 meq/L 98-107 (test code = 382) CO2 (BEAKER) (test 20 meq/L 22-29 L code = 355) BLOOD UREA NITROGEN 30 mg/dL 7-21 H (BEAKER) (test code = 354) CREATININE (BEAKER) 1.09 mg/dL 0.57-1.25 (test code = 358) GLUCOSE RANDOM 156 mg/dL 70-105 H (BEAKER) (test code = 652) CALCIUM (BEAKER) 8.6 mg/dL 8.4-10.2 (test code = 697) EGFR (BEAKER) (test 65 mL/min/1.73 ESTIMA AILEEN GFR IS code = 1092) sq m NOT ACCURATE CREATININE CLEARANCE IN PREDICTING GLOMERULAR FILTRATION RATE . ESTIMATED GFR I S NOT APPLICABLE FOR DIALYSIS PATIEN TS. Engineering Assistant ID - BSBLOOD GAS, [id number] 18:07:00 Test Item Value Reference Range Interpretation Comments PH ARTERIAL (BEAKER) (test code = 7.49 7.35-7.45 H 383) PCO2 ARTERIAL (BEAKER) (test code 32 mm Hg 35-45 L = 384) PO2 ARTERIAL (BEAKER) (test code = 60 mm Hg 80-90 L 385) O2 SATURATION ARTERIAL (BEAKER) 92.8 % 96.0-97.0 L (test code = 386) HCO3 ARTERIAL (BEAKER) (test code 24 mmol/L 21-29 = 388) BASE EXCESS ARTERIAL (BEAKER) 0.9 mmol/L -2.0-3.0 (test code = 387) PATIENT TEMPERATURE (BEAKER) (test 37.2 code = 1818) FIO2 (BEAKER) (test code = 1819) 100.0 BASIC METABOLIC [id number] 14:58:00 Test Item Value Reference Range Interpretation Comments SODIUM (BEAKER) 139 meq/L 136-145 (test code = 381) POTASSIUM (BEAKER) 4.0 meq/L 3.5-5.1 (test code = 379) CHLORIDE (BEAKER) 104 meq/L 98-107 (test code = 382) CO2 (BEAKER) (test 24 meq/L 22-29 code = 355) BLOOD UREA NITROGEN 28 mg/dL 7-21 H (BEAKER) (test code = 354) CREATININE (BEAKER) 1.20 mg/dL 0.57-1.25 (test code = 358) GLUCOSE RANDOM 147 mg/dL 70-105 H (BEAKER) (test code = 652) CALCIUM (BEAKER) 8.7 mg/dL 8.4-10.2 (test code = 697) EGFR (BEAKER) (test 59 mL/min/1.73 ESTIMA AILEEN GFR IS code = 1092) sq m NOT ACCURATE CREATININE CLEARANCE IN PREDICTING GLOMERULAR FILTRATION RATE . ESTIMATED GFR I S NOT APPLICABLE FOR DIALYSIS PATIEN TS. Engineering Assistant ID - BSPOCT-GLUCOSE [id number] 06:53:00 Test Item Value Reference Range Interpretation Comments POC-GLUCOSE METER 109 mg/dL 70-110 : TESTED A T [facility] 6720 (BEAKER) (test code = [facility], 1538) [id number]: Engineering Assistant/Techni preeti ID = [id number] for El lis (contract), Daphne a POCT-GLUCOSE [id number] 05:36:00 Test Item Value Reference Range Interpretation Comments POC-GLUCOSE METER 114 mg/dL 70-110 H : TESTED A T [facility] 6720 (BEAKER) (test code = [facility], 1538) [id number]: Engineering Assistant/Techni preeti ID = [id number] for El lis (contract), Daphne a CBC W/PLT COUNT & AUTO [id number] 05:35:00 Test Item Value Reference Range Interpretation Comments WHITE BLOOD CELL COUNT (BEAKER) 12.4 K/ L 3.5-10.5 H (test code = 775) RED BLOOD CELL COUNT (BEAKER) 2.82 M/ L 4.63-6.08 L (test code = 761) HEMOGLOBIN (BEAKER) (test code = 8.5 GM/DL 13.7-17.5 L 410) HEMATOCRIT (BEAKER) (test code = 24.7 % 40.1-51.0 L 411) MEAN CORPUSCULAR VOLUME (BEAKER) 87.6 fL 79.0-92.2 (test code = 753) MEAN CORPUSCULAR HEMOGLOBIN 30.1 pg 25.7-32.2 (BEAKER) (test code = 751) MEAN CORPUSCULAR HEMOGLOBIN CONC 34.4 GM/DL 32.3-36.5 (BEAKER) (test code = 752) RED CELL DISTRIBUTION WIDTH 12.9 % 11.6-14.4 (BEAKER) (test code = 412) PLATELET COUNT (BEAKER) (test code 65 K/CU MM 150-450 L = 756) MEAN PLATELET VOLUME (BEAKER) 12.3 fL 9.4-12.4 (test code = 754) NUCLEATED RED BLOOD CELLS (BEAKER) 0 /100 WBC 0-0 (test code = 413) (CELLAVISION MANUAL DIFF)2020-10-03 05:35:00 Test Item Value Reference Range Interpretation Comments NEUTROPHILS - REL 79 % (CELLAVISION)(BEAKER) (test code = 2816) LYMPHOCYTES - REL 13 % (CELLAVISION)(BEAKER) (test code = 2817) MONOCYTES - REL 6 % (CELLAVISION)(BEAKER) (test code = 2818) PROMYELOCYTES - REL 1 % 0-0 H (CELLAVSION)(BEAKER) (test code = 2825) BANDS - REL (CELLAVISION)(BEAKER) 1 % 0-10 (test code = 2826) NEUTROPHILS - ABS 9.80 K/ul 1.78-5.38 H (CELLAVISION)(BEAKER) (test code = 2830) LYMPHOCYTES - ABS 1.61 K/ul 1.32-3.57 (CELLAVISION)(BEAKER) (test code = 2831) MONOCYTES - ABS 0.74 K/uL 0.30-0.82 (CELLAVISION)(BEAKER) (test code = 2832) PROMYELOCYTES - ABS 0.12 K/uL 0.00-0.00 H (CELLAVISION)(BEAKER) (test code = 2838) BANDS - ABS (CELLAVISION)(BEAKER) 0.12 K/uL 0.00-0.80 (test code = 2840) TOTAL COUNTED (BEAKER) (test code = 100 1351) WBC MORPHOLOGY (BEAKER) (test code Normal = 487) LARGE PLT(BEAKER) (test code = Present 2156) ANISOCYTOSIS (BEAKER) (test code = 1+ few 961) MICROCYTES (BEAKER) (test code = 1+ few 965) POIKILOCYTES (BEAKER) (test code = 1+ few 966) OVALOCYTES (BEAKER) (test code = 1+ few 477) BASOPHILIC STIPPLING (BEAKER) (test Present code = 473) ARTIFACT (CELLAVISION)(BEAKER) Present (test code = 3432) PLATELET CONCENTRATION Decreased (CELLAVISION)(BEAKER) (test code = 3438) Engineering Assistant ID - Omar comments: Slide comments:POCT-GLUCOSE [id number] 05:26:00 Test Item Value Reference Range Interpretation Comments POC-GLUCOSE METER 127 mg/dL 70-110 H : [facility] (BEAKER) (test code = [place], 1538) [id number]: Engineering Assistant/Techni preeti ID = [id number] for El lis (contract), Daphne a LACTIC ACID, [id number] 04:10:00 Test Item Value Reference Range Interpretation Comments LACTATE BLOOD ARTERIAL (2) 2.6 mmol/L 0.5-2.2 H (BEAKER) (test code = 2874) Engineering Assistant ID - [id number] 04:04:00 Test Item Value Reference Range Interpretation Comments FIBRINOGEN LEVEL (BEAKER) (test 237 mg/dl 225-434 code = 658) BASIC METABOLIC [id number] 04:01:00 Test Item Value Reference Range Interpretation Comments SODIUM (BEAKER) 146 meq/L 136-145 H (test code = 381) POTASSIUM (BEAKER) 4.1 meq/L 3.5-5.1 (test code = 379) CHLORIDE (BEAKER) 110 meq/L 98-107 H (test code = 382) CO2 (BEAKER) (test 25 meq/L 22-29 code = 355) BLOOD UREA NITROGEN 24 mg/dL 7-21 H (BEAKER) (test code = 354) CREATININE (BEAKER) 1.07 mg/dL 0.57-1.25 (test code = 358) GLUCOSE RANDOM 126 mg/dL 70-105 H (BEAKER) (test code = 652) CALCIUM (BEAKER) 8.6 mg/dL 8.4-10.2 (test code = 697) EGFR (BEAKER) (test 67 mL/min/1.73 ESTIMA AILEEN GFR IS code = 1092) sq m NOT ACCURATE CREATININE CLEARANCE IN PREDICTING GLOMERULAR FILTRATION RATE . ESTIMATED GFR I S NOT APPLICABLE FOR DIALYSIS PATIEN TS. Engineering Assistant ID - [id number] 04:01:00 Test Item Value Reference Range Interpretation Comments MAGNESIUM (BEAKER) (test code = 1.9 mg/dL 1.6-2.6 627) Engineering Assistant ID - EDASICALCIUM, [id number] 03:58:00 Test Item Value Reference Range Interpretation Comments CALCIUM IONIZED (BEAKER) (test 1.09 mmol/L 1.12-1.27 L code = 698) PH, BLOOD (BEAKER) (test code = 7.51 1810) RAD, CHEST, 1 VIEW, NON [id number] 03:56:00Reason for exam:->post opShould this be performed at the bedside?->Yes [facility] : 1940 Sex: MFINAL REPORT CLINICAL INDICATION: Postop Comparison: 10/02/2020 The patient is rotated to the right. The cardiomediastinal contours are stable. The lung volumes are low but stable after extubation. Central pulmonary vascular prominence and bilateral parenchymal opacities are similar to previous. There is no pneumothorax. Remaining support lines are stable. Signed: Chan Flores MDReport Verified Date/Time: 10/03/2020 03:56:14 [id number] 03:53:00 Test Item Value Reference Range Interpretation Comments PARTIAL THROMBOPLASTIN TIME 36.9 seconds 22.5-36.0 H (BEAKER) (test code = 760) PROTHROMBIN [id number] 03:52:00 Test Item Value Reference Range Interpretation Comments PROTIME (BEAKER) 17.0 seconds 11.9-14.2 H (test code = 759) INR (BEAKER) (test 1.42 See_Comment [Automat ed message] code = 370) The system [employer] generated this result transmitted ref erence range: <=5.90. The reference range was not used to int erpret this result as normal/abnormal . Effective 12/15/2018: PT Reference Range ChangeNew: 11.9-14.2 Previous: 11.7- 14.7RECOMMENDED COUMADIN/WARFARIN INR THERAPY RANGESSTANDARD DOSE: 2.0-3.0 Includes: PROPHYLAXIS for venous thrombosis, systemic embolization; TREATMENT for venous thrombosis and/or pulmonary embolus.HIGH RISK: Target INR is2.5-3.5 for patients wiht mechanical heart valves.BLOOD GAS, [id number] 03:51:00 Test Item Value Reference Range Interpretation Comments PH ARTERIAL (BEAKER) (test code = 7.51 7.35-7.45 H 383) PCO2 ARTERIAL (BEAKER) (test code 33 mm Hg 35-45 L = 384) PO2 ARTERIAL (BEAKER) (test code = 94 mm Hg 80-90 H 385) O2 SATURATION ARTERIAL (BEAKER) 97.8 % 96.0-97.0 H (test code = 386) HCO3 ARTERIAL (BEAKER) (test code 26 mmol/L 21-29 = 388) BASE EXCESS ARTERIAL (BEAKER) 3.0 mmol/L -2.0-3.0 (test code = 387) PATIENT TEMPERATURE (BEAKER) (test 37.0 code = 1818) POCT-GLUCOSE [id number] 02:13:00 Test Item Value Reference Range Interpretation Comments POC-GLUCOSE METER 125 mg/dL 70-110 H : TESTED A T [facility] 6720 (BEAKER) (test code = [place], 1538) [id number]: Engineering Assistant/Techni preeti ID = [id number] for Kurtis aguirre (contract), Daphne zarate LACTIC ACID, [id number] 00:42:00 Test Item Value Reference Range Interpretation Comments LACTATE BLOOD ARTERIAL (2) 4.9 mmol/L 0.5-2.2 HH (BEAKER) (test code = 2874) Engineering Assistant ID - BSBLOOD GAS, [id number] 00:25:00 Test Item Value Reference Range Interpretation Comments PH ARTERIAL (BEAKER) (test code = 7.48 7.35-7.45 H 383) PCO2 ARTERIAL (BEAKER) (test code 32 mm Hg 35-45 L = 384) PO2 ARTERIAL (BEAKER) (test code = 87 mm Hg 80-90 385) O2 SATURATION ARTERIAL (BEAKER) 97.3 % 96.0-97.0 H (test code = 386) HCO3 ARTERIAL (BEAKER) (test code 23 mmol/L 21-29 = 388) BASE EXCESS ARTERIAL (BEAKER) 0.1 mmol/L -2.0-3.0 (test code = 387) PATIENT TEMPERATURE (BEAKER) (test 37.0 code = 1818) FIO2 (BEAKER) (test code = 1819) 21.0 GLUCOSE-STAT [id number] 00:25:00 Test Item Value Reference Range Interpretation Comments GLUCOSE RANDOM (BEAKER) (test code 169 mg/dL 70-110 H = 652) HGB/HCT (H&H) - STAT [id number] 00:25:00 Test Item Value Reference Range Interpretation Comments HEMOGLOBIN (BEAKER) (test code = 9.6 GM/DL 13.0-16.8 L 410) HEMATOCRIT (BEAKER) (test code = 28.0 % 40.0-50.0 L 411) SODIUM NA-STAT [id number] 00:24:00 Test Item Value Reference Range Interpretation Comments SODIUM (BEAKER) (test code = 381) 143 meq/L 136-145 POTASSIUM-STAT [id number] 00:24:00 Test Item Value Reference Range Interpretation Comments POTASSIUM (BEAKER) (test code = 4.0 meq/L 3.6-5.5 379) POCT-GLUCOSE [id number] 00:02:00 Test Item Value Reference Range Interpretation Comments POC-GLUCOSE METER 145 mg/dL 70-110 H : TESTED A T [facility] 6720 (BEAKER) (test code = [facility], 1538) 138[address]: Engineering Assistant/Techni preeti ID = [id number] for Kurtis aguirre (contract), Daphne a POCT-GLUCOSE [id number] 23:10:00 Test Item Value Reference Range Interpretation Comments POC-GLUCOSE METER 151 mg/dL 70-110 H : TESTED A T [facility] 6720 (BEAKER) (test code = [place], 1538) [address]: Engineering Assistant/Techni preeti ID = [id number] for Kurtis aguirre (contract), Daphne a POCT-GLUCOSE [id number] 21:38:00 Test Item Value Reference Range Interpretation Comments POC-GLUCOSE METER 132 mg/dL 70-110 H : TESTED A T [facility] 6720 (BEAKER) (test code = [place] [place] [facility], 1538) 93[address]: Engineering Assistant/Techni preeti ID = [id number] for Kurtis aguirre (contract), Daphne a LACTIC ACID, [id number] 21:23:00 Test Item Value Reference Range Interpretation Comments LACTATE BLOOD ARTERIAL (2) 4.0 mmol/L 0.5-2.2 HH (BEAKER) (test code = 2874) Engineering Assistant ID - BSSODIUM NA-STAT [id number] 21:05:00 Test Item Value Reference Range Interpretation Comments SODIUM (BEAKER) (test code = 381) 143 meq/L 136-145 POTASSIUM-STAT [id number] 21:05:00 Test Item Value Reference Range Interpretation Comments POTASSIUM (BEAKER) (test code = 4.6 meq/L 3.6-5.5 379) BLOOD GAS, [id number] 21:05:00 Test Item Value Reference Range Interpretation Comments PH ARTERIAL (BEAKER) (test code = 7.50 7.35-7.45 H 383) PCO2 ARTERIAL (BEAKER) (test code 33 mm Hg 35-45 L = 384) PO2 ARTERIAL (BEAKER) (test code = 73 mm Hg 80-90 L 385) O2 SATURATION ARTERIAL (BEAKER) 96.0 % 96.0-97.0 (test code = 386) HCO3 ARTERIAL (BEAKER) (test code 25 mmol/L 21-29 = 388) BASE EXCESS ARTERIAL (BEAKER) 2.0 mmol/L -2.0-3.0 (test code = 387) PATIENT TEMPERATURE (BEAKER) (test 37.0 code = 1818) FIO2 (BEAKER) (test code = 1819) 21.0 GLUCOSE-STAT [id number] 21:05:00 Test Item Value Reference Range Interpretation Comments GLUCOSE RANDOM (BEAKER) (test code 135 mg/dL 70-110 H = 652) HGB/HCT (H&H) - STAT [id number] 21:05:00 Test Item Value Reference Range Interpretation Comments HEMOGLOBIN (BEAKER) (test code = 9.7 GM/DL 13.0-16.8 L 410) HEMATOCRIT (BEAKER) (test code = 29.0 % 40.0-50.0 L 411) POCT-GLUCOSE [id number] 20:19:00 Test Item Value Reference Range Interpretation Comments POC-GLUCOSE METER 125 mg/dL 70-110 H : TESTED A T [facility] 6720 (BEAKER) (test code = [facility], 1538) 401[address]: Engineering Assistant/Techni preeti ID = [id number] for Kurtis lis (contract), Daphne a POCT-GLUCOSE [id number] 19:22:00 Test Item Value Reference Range Interpretation Comments POC-GLUCOSE METER 147 mg/dL 70-110 H : TESTED A T [facility] 6720 (BEAKER) (test code = [facility] [employer] [facility], 1538) 93992: Engineering Assistant/Techni preeti ID = [id number] for Kurtis aguirre (contract), Daphne a LACTIC ACID, [id number] 18:02:00 Test Item Value Reference Range Interpretation Comments LACTATE BLOOD ARTERIAL (2) 7.4 mmol/L 0.5-2.2 HH (BEAKER) (test code = 2874) Engineering Assistant ID - ADMINPOCT-GLUCOSE [id number] 17:26:00 Test Item Value Reference Range Interpretation Comments POC-GLUCOSE METER 173 mg/dL 70-110 H : TESTED A T [facility] 6720 (BEAKER) (test code = [facility] [employer] [facility], 1538) 110[address]: Engineering Assistant/Techni pereti ID = [id number] for TORRES BORREGO BLOOD GAS, [id number] 17:14:00 Test Item Value Reference Range Interpretation Comments PH ARTERIAL (BEAKER) (test code = 7.38 7.35-7.45 383) PCO2 ARTERIAL (BEAKER) (test code 33 mm Hg 35-45 L = 384) PO2 ARTERIAL (BEAKER) (test code 78 mm Hg 80-90 L = 385) O2 SATURATION ARTERIAL (BEAKER) 95.8 % 96.0-97.0 L (test code = 386) HCO3 ARTERIAL (BEAKER) (test code 19 mmol/L 21-29 L = 388) BASE EXCESS ARTERIAL (BEAKER) -5.6 mmol/L -2.0-3.0 L (test code = 387) PATIENT TEMPERATURE (BEAKER) 36.4 (test code = 1818) FIO2 (BEAKER) (test code = 1819) 50.0 GLUCOSE-STAT [id number] 17:14:00 Test Item Value Reference Range Interpretation Comments GLUCOSE RANDOM (BEAKER) (test code 184 mg/dL 70-110 H = 652) HGB/HCT (H&H) - STAT [id number] 17:14:00 Test Item Value Reference Range Interpretation Comments HEMOGLOBIN (BEAKER) (test code = 10.4 GM/DL 13.0-16.8 L 410) HEMATOCRIT (BEAKER) (test code = 31.0 % 40.0-50.0 L 411) SODIUM NA-STAT [id number] 17:13:00 Test Item Value Reference Range Interpretation Comments SODIUM (BEAKER) (test code = 381) 141 meq/L 136-145 POTASSIUM-STAT [id number] 17:13:00 Test Item Value Reference Range Interpretation Comments POTASSIUM (BEAKER) (test code = 4.6 meq/L 3.6-5.5 379) BLOOD GAS, [id number] 16:39:00 Test Item Value Reference Range Interpretation Comments PH ARTERIAL (BEAKER) (test code = 7.35 7.35-7.45 383) PCO2 ARTERIAL (BEAKER) (test code 36 mm Hg 35-45 = 384) PO2 ARTERIAL (BEAKER) (test code 95 mm Hg 80-90 H = 385) O2 SATURATION ARTERIAL (BEAKER) 97.2 % 96.0-97.0 H (test code = 386) HCO3 ARTERIAL (BEAKER) (test code 20 mmol/L 21-29 L = 388) BASE EXCESS ARTERIAL (BEAKER) -5.4 mmol/L -2.0-3.0 L (test code = 387) PATIENT TEMPERATURE (BEAKER) 36.4 (test code = 1818) FIO2 (BEAKER) (test code = 1819) 50.0 BASIC METABOLIC [id number] 16:23:00 Test Item Value Reference Range Interpretation Comments SODIUM (BEAKER) 144 meq/L 136-145 (test code = 381) POTASSIUM (BEAKER) 4.6 meq/L 3.5-5.1 (test code = 379) CHLORIDE (BEAKER) 111 meq/L 98-107 H (test code = 382) CO2 (BEAKER) (test 19 meq/L 22-29 L code = 355) BLOOD UREA NITROGEN 18 mg/dL 7-21 (BEAKER) (test code = 354) CREATININE (BEAKER) 0.96 mg/dL 0.57-1.25 (test code = 358) GLUCOSE RANDOM 178 mg/dL 70-105 H (BEAKER) (test code = 652) CALCIUM (BEAKER) 8.0 mg/dL 8.4-10.2 L (test code = 697) EGFR (BEAKER) (test 76 mL/min/1.73 ESTIMA AILEEN GFR IS code = 1092) sq m NOT ACCURATE CREATININE CLEARANCE IN PREDICTING GLOMERULAR FILTRATION RATE . ESTIMATED GFR I S NOT APPLICABLE FOR DIALYSIS PATIEN TS. Engineering Assistant ID - ADMINLACTIC ACID, [id number] 16:16:00 Test Item Value Reference Range Interpretation Comments LACTATE BLOOD ARTERIAL (2) 6.5 mmol/L 0.5-2.2 HH (BEAKER) (test code = 2874) Engineering Assistant ID - ADMINPOCT-GLUCOSE [id number] 15:38:00 Test Item Value Reference Range Interpretation Comments POC-GLUCOSE METER 152 mg/dL 70-110 H : TESTED A T [facility] 6720 (BEAKER) (test code = VALENTININDIANA HILLMAN MD, 1538) [id number]: Engineering Assistant/Techni preeti ID = [id number] for CO BURN, EBEN RAD, ABDOMEN/KUB, 1 VIEW [id number] 15:22:00Reason for exam:->distended abdomen, rising lactate [facility] : 1940 Sex: MFINAL REPORT RAD, ABDOMEN/KUB, 1 VIEW AP CLINICAL INDICATION: di stended abdomen, rising lactate COMPARISON: None TECHNIQUE: Single, frontal radiograph of the abdomen. FINDINGS: Bowel gas pattern is poorly evaluated with only single view which does not include the entire abdomen. NG side-port overlies the stomach. Signed: Josefina Greenbergort Verified Date/Time: 10/02/2020 15:22:03 Reading Location: [facility] Radiology Reading Room IC ACID, [id number] 14:22:00 Test Item Value Reference Range Interpretation Comments LACTATE BLOOD ARTERIAL (2) 5.0 mmol/L 0.5-2.2 HH (BEAKER) (test code = 2874) Engineering Assistant ID - [place] FPOCT-GLUCOSE [id number] 13:39:00 Test Item Value Reference Range Interpretation Comments POC-GLUCOSE METER 137 mg/dL 70-110 H : TESTED A T [facility] 6720 (BEAKER) (test code = CULLEN Alvarado [facility], 1538) [id number]: Engineering Assistant/Techni preeti ID = [id number] for TORRES BORREGO BLOOD GAS, [id number] 13:34:00 Test Item Value Reference Range Interpretation Comments PH ARTERIAL (BEAKER) (test code = 7.34 7.35-7.45 L 383) PCO2 ARTERIAL (BEAKER) (test code 38 mm Hg 35-45 = 384) PO2 ARTERIAL (BEAKER) (test code 96 mm Hg 80-90 H = 385) O2 SATURATION ARTERIAL (BEAKER) 97.2 % 96.0-97.0 H (test code = 386) HCO3 ARTERIAL (BEAKER) (test code 20 mmol/L 21-29 L = 388) BASE EXCESS ARTERIAL (BEAKER) -5.5 mmol/L -2.0-3.0 L (test code = 387) PATIENT TEMPERATURE (BEAKER) 36.3 (test code = 1818) FIO2 (BEAKER) (test code = 1819) 40.0 CBC W/PLT COUNT & AUTO [id number] 12:35:00 Test Item Value Reference Range Interpretation Comments WHITE BLOOD CELL COUNT (BEAKER) 33.1 K/ L 3.5-10.5 H (test code = 775) RED BLOOD CELL COUNT (BEAKER) 3.66 M/ L 4.63-6.08 L (test code = 761) HEMOGLOBIN (BEAKER) (test code = 11.2 GM/DL 13.7-17.5 L 410) HEMATOCRIT (BEAKER) (test code = 32.5 % 40.1-51.0 L 411) MEAN CORPUSCULAR VOLUME (BEAKER) 88.8 fL 79.0-92.2 (test code = 753) MEAN CORPUSCULAR HEMOGLOBIN 30.6 pg 25.7-32.2 (BEAKER) (test code = 751) MEAN CORPUSCULAR HEMOGLOBIN CONC 34.5 GM/DL 32.3-36.5 (BEAKER) (test code = 752) RED CELL DISTRIBUTION WIDTH 12.4 % 11.6-14.4 (BEAKER) (test code = 412) PLATELET COUNT (BEAKER) (test 102 K/CU MM 150-450 L code = 756) MEAN PLATELET VOLUME (BEAKER) 11.5 fL 9.4-12.4 (test code = 754) NUCLEATED RED BLOOD CELLS 0 /100 WBC 0-0 (BEAKER) (test code = 413) (CELLAVISION MANUAL DIFF)2020-10-02 12:35:00 Test Item Value Reference Range Interpretation Comments NEUTROPHILS - REL 82 % (CELLAVISION)(BEAKER) (test code = 2816) LYMPHOCYTES - REL 11 % (CELLAVISION)(BEAKER) (test code = 2817) MONOCYTES - REL 4 % (CELLAVISION)(BEAKER) (test code = 2818) EOSINOPHILS - REL 1 % (CELLAVISION)(BEAKER) (test code = 2819) BASOPHILS - REL 1 % (CELLAVISION)(BEAKER) (test code = 2820) BANDS - REL (CELLAVISION)(BEAKER) 1 % 0-10 (test code = 2826) NEUTROPHILS - ABS 27.14 K/ul 1.78-5.38 H (CELLAVISION)(BEAKER) (test code = 2830) LYMPHOCYTES - ABS 3.64 K/ul 1.32-3.57 H (CELLAVISION)(BEAKER) (test code = 2831) MONOCYTES - ABS 1.32 K/uL 0.30-0.82 H (CELLAVISION)(BEAKER) (test code = 2832) EOSINOPHILS - ABS 0.33 K/uL 0.04-0.54 (CELLAVISION)(BEAKER) (test code = 2834) BASOPHILS - ABS 0.33 K/uL 0.01-0.08 H (CELLAVISION)(BEAKER) (test code = 2835) BANDS - ABS (CELLAVISION)(BEAKER) 0.33 K/uL 0.00-0.80 (test code = 2840) TOTAL COUNTED (BEAKER) (test code 100 = 1351) WBC MORPHOLOGY (BEAKER) (test code Normal = 487) PLT MORPHOLOGY (BEAKER) (test code Normal = 486) ANISOCYTOSIS (BEAKER) (test code = 1+ few 961) MICROCYTES (BEAKER) (test code = 1+ few 965) ARTIFACT (CELLAVISION)(BEAKER) Present (test code = 3432) PLATELET CONCENTRATION Decreased (CELLAVISION)(BEAKER) (test code = 3438) Engineering Assistant ID - [id number] ID - Maria Elena Conklin comments: Slide comments: COMPREHENSIVE METABOLIC [id number] 12:17:00 Test Item Value Reference Range Interpretation Comments TOTAL PROTEIN 5.6 gm/dL 6.0-8.3 L Specimen sligh tly (BEAKER) (test code = hemoly zed 770) ALBUMIN (BEAKER) 3.7 g/dL 3.5-5.0 Specimen sl ightly (test code = 1145) hemolyzed ALKALINE PHOSPHATASE 50 U/L 40-150 (BEAKER) (test code = 346) BILIRUBIN TOTAL 0.6 mg/dL 0.2-1.2 Specimen sli ghtly (BEAKER) (test code = hemoly zed 377) SODIUM (BEAKER) (test 141 meq/L 136-145 code = 381) POTASSIUM (BEAKER) 3.9 meq/L 3.5-5.1 Specimen slightly (test code = 379) hemolyzed CHLORIDE (BEAKER) 113 meq/L 98-107 H (test code = 382) CO2 (BEAKER) (test 19 meq/L 22-29 L code = 355) BLOOD UREA NITROGEN 16 mg/dL 7-21 (BEAKER) (test code = 354) CREATININE (BEAKER) 0.81 mg/dL 0.57-1.25 Specimen slightly (test code = 358) hemolyzed GLUCOSE RANDOM 123 mg/dL 70-105 H (BEAKER) (test code = 652) CALCIUM (BEAKER) 7.9 mg/dL 8.4-10.2 L (test code = 697) AST (SGOT) (BEAKER) 28 U/L 5-34 Specimen slightly (test code = 353) hemolyzed ALT (SGPT) (BEAKER) 18 U/L 6-55 Specimen slightly (test code = 347) hemolyzed EGFR (BEAKER) (test 92 mL/min/1.73 ESTIMA AILEEN GFR IS code = 1092) sq m NOT ACCURATE CREATININE CLEARANCE IN PREDICTING GLOMERULAR FILTRATION RATE . ESTIMATED GFR I S NOT APPLICABLE FOR DIALYSIS PATIEN TS. Engineering Assistant ID Brandi VERMA [id number] 12:16:00 Test Item Value Reference Range Interpretation Comments MAGNESIUM (BEAKER) 2.2 mg/dL 1.6-2.6 Specimen slightly (test code = 627) hemolyzed Engineering Assistant ID Brandi VERMA [id number] 12:16:00 Test Item Value Reference Range Interpretation Comments GLUCOSE RANDOM (BEAKER) (test code 123 mg/dL 70-105 H = 652) [id number] 12:16:00 Test Item Value Reference Range Interpretation Comments POTASSIUM (BEAKER) 3.9 meq/L 3.5-5.1 Specimen slightly (test code = 379) hemolyzed PROTHROMBIN [id number] 12:04:00 Test Item Value Reference Range Interpretation Comments PROTIME (BEAKER) 19.7 seconds 11.9-14.2 H (test code = 759) INR (BEAKER) (test 1.72 See_Comment [Automat ed message] code = 370) The system [employer] generated this result transmitted ref erence range: <=5.90. The reference range was not used to int erpret this result as normal/abnormal . Effective 12/15/2018: PT Reference Range ChangeNew: 11.9-14.2 Previous: 11.7- 14.7RECOMMENDED COUMADIN/WARFARIN INR THERAPY RANGESSTANDARD DOSE: 2.0-3.0 Includes: PROPHYLAXIS for venous thrombosis, systemic embolization; TREATMENT for venous thrombosis and/or pulmonary embolus.HIGH RISK: Target INR is2.5-3.5 for patients wiht mechanical heart valves.[id number] 12:04:00 Test Item Value Reference Range Interpretation Comments FIBRINOGEN LEVEL (BEAKER) (test 204 mg/dl 225-434 L code = 658) [id number] 12:04:00 Test Item Value Reference Range Interpretation Comments PARTIAL THROMBOPLASTIN TIME 33.6 seconds 22.5-36.0 (BEAKER) (test code = 760) RAD, CHEST, 1 VIEW, NON [id number] 12:02:00Reason for exam:->post opShould this be performed at the bedside?->Yes [facility] 1940 Sex: MFINAL REPORT RAD, CHEST, 1 VIEW, NON DEPT INDICATION: post op COM PARISON: 10/02/2020 FINDINGS: Portable frontal view of the chest. IMPRESSION: Support Lines: Central catheter tip overlies the SVC. NG tube descends below the diaphragm. Bilateral chest tubes have been placed. Lungs and pleura: Mild diffuse bilateral interstitial thickening. No pneumothorax.Heart and mediastinum: Stable contours.Additional findings: None. Signed: Josefina Greenberg Verified Date/Time: 10/02/2020 12:02:34 [facility] Electronicallysigned by: JOSEFINA GREENBERG MD on 10/02/2020 12:02 PMLACTIC ACID, [id number] 12:01:00 Test Item Value Reference Range Interpretation Comments LACTATE BLOOD 3.3 mmol/L 0.5-2.2 H Specimen sligh tly ARTERIAL (2) (BEAKER) hemoly zed (test code = 2874) Engineering Assistant ID - BAYRON SANCHESLOOD GAS, [id number] 11:50:00 Test Item Value Reference Range Interpretation Comments PH ARTERIAL (BEAKER) (test code = 7.32 7.35-7.45 L 383) PCO2 ARTERIAL (BEAKER) (test code 44 mm Hg 35-45 = 384) PO2 ARTERIAL (BEAKER) (test code 112 mm Hg 80-90 H = 385) O2 SATURATION ARTERIAL (BEAKER) 97.8 % 96.0-97.0 H (test code = 386) HCO3 ARTERIAL (BEAKER) (test code 22 mmol/L 21-29 = 388) BASE EXCESS ARTERIAL (BEAKER) -4.2 mmol/L -2.0-3.0 L (test code = 387) PATIENT TEMPERATURE (BEAKER) 36.3 (test code = 1818) FIO2 (BEAKER) (test code = 1819) 60.0 GLUCOSE-STAT [id number] 11:50:00 Test Item Value Reference Range Interpretation Comments GLUCOSE RANDOM (BEAKER) (test code 124 mg/dL 70-110 H = 652) HGB/HCT (H&H) - STAT [id number] 11:50:00 Test Item Value Reference Range Interpretation Comments HEMOGLOBIN (BEAKER) (test code = 12.0 GM/DL 13.0-16.8 L 410) HEMATOCRIT (BEAKER) (test code = 35.0 % 40.0-50.0 L 411) OXYGEN SATURATION, [id number] 11:50:00 Test Item Value Reference Range Interpretation Comments O2 SATURATION (MEASURED) (BEAKER) 85.6 % (test code = 1455) CALCIUM, [id number] 11:50:00 Test Item Value Reference Range Interpretation Comments CALCIUM IONIZED (BEAKER) (test 1.16 mmol/L 1.12-1.27 code = 698) PH, BLOOD (BEAKER) (test code = 7.31 1810) SODIUM NA-STAT [id number] 11:49:00 Test Item Value Reference Range Interpretation Comments SODIUM (BEAKER) (test code = 381) 141 meq/L 136-145 POTASSIUM-STAT [id number] 11:49:00 Test Item Value Reference Range Interpretation Comments POTASSIUM (BEAKER) (test code = 3.7 meq/L 3.6-5.5 379) [id number] 11:07:00 Test Item Value Reference Range Interpretation Comments ACTIVATED CLOTTING TIME 109 sec : 74 -137 seconds, (BEAKER) (test code = Baseli ne: TESTED AT 441) [place] [id number] 30: Engineering Assistant/Techni preeti ID = [id number] for David Bey, Izabel [id number] 11:06:00 Test Item Value Reference Range Interpretation Comments ACTIVATED CLOTTING TIME 538 sec : 74 -137 seconds, (BEAKER) (test code = Baseli ne: TESTED AT 441) [place] [address] 30: Engineering Assistant/Techni preeti ID = [id number] for CA STRO, JOSE [id number] 11:06:00 Test Item Value Reference Range Interpretation Comments ACTIVATED CLOTTING TIME 571 sec : 74 -137 seconds, (BEAKER) (test code = Baseli ne: TESTED AT 441) [address], [facility] 30: Engineering Assistant/Techni preeti ID = [id number] for David Bey, Izabel [id number] 11:06:00 Test Item Value Reference Range Interpretation Comments ACTIVATED CLOTTING TIME 731 sec : 74 -137 seconds, (BEAKER) (test code = Baseli ne: TESTED AT 441) [place] [address] 30: Engineering Assistant/Techni preeti ID = [id number] for David Bey, Izabel [id number] 11:06:00 Test Item Value Reference Range Interpretation Comments ACTIVATED CLOTTING TIME 400 sec : 74 -137 seconds, (BEAKER) (test code = Baseli ne: TESTED AT 441) [place] [address] 30: Engineering Assistant/Techni preeti ID = [id number] for Izabel Horton PROTHROMBIN [id number] 10:54:00 Test Item Value Reference Range Interpretation Comments PROTIME (BEAKER) 21.0 seconds 11.9-14.2 H (test code = 759) INR (BEAKER) (test 1.87 See_Comment [Automat ed message] code = 370) The system [employer] generated this result transmitted ref erence range: <=5.90. The reference range was not used to int erpret this result as normal/abnormal . Effective 12/15/2018: PT Reference Range ChangeNew: 11.9-14.2 Previous: 11.7- 14.7RECOMMENDED COUMADIN/WARFARIN INR THERAPY RANGESSTANDARD DOSE: 2.0-3.0 Includes: PROPHYLAXIS for venous thrombosis, systemic embolization; TREATMENT for venous thrombosis and/or pulmonary embolus.HIGH RISK: Target INR is2.5-3.5 for patients wiht mechanical heart valves.[id number] 10:54:00 Test Item Value Reference Range Interpretation Comments FIBRINOGEN LEVEL (BEAKER) (test 207 mg/dl 225-434 L code = 658) [id number] 10:54:00 Test Item Value Reference Range Interpretation Comments PARTIAL THROMBOPLASTIN TIME 34.3 seconds 22.5-36.0 (BEAKER) (test code = 760) PLATELET [id number] 10:47:00 Test Item Value Reference Range Interpretation Comments PLATELET COUNT (BEAKER) (test code 90 K/CU MM 150-450 L = 756) Engineering Assistant ID - [id number] ID - [id number], [id number] 10:40:00 Test Item Value Reference Range Interpretation Comments CALCIUM IONIZED (BEAKER) (test 1.30 mmol/L 1.12-1.27 H code = 698) PH, BLOOD (BEAKER) (test code = 7.38 1810) BLOOD GAS, [id number] 10:38:00 Test Item Value Reference Range Interpretation Comments PH ARTERIAL (BEAKER) (test code = 7.38 7.35-7.45 383) PCO2 ARTERIAL (BEAKER) (test code 43 mm Hg 35-45 = 384) PO2 ARTERIAL (BEAKER) (test code 209 mm Hg 80-90 H = 385) O2 SATURATION ARTERIAL (BEAKER) 99.4 % 96.0-97.0 H (test code = 386) HCO3 ARTERIAL (BEAKER) (test code 25 mmol/L 21-29 = 388) BASE EXCESS ARTERIAL (BEAKER) -0.6 mmol/L -2.0-3.0 (test code = 387) PATIENT TEMPERATURE (BEAKER) 36.0 (test code = 1818) FIO2 (BEAKER) (test code = 1819) 100.0 GLUCOSE-STAT [id number] 10:38:00 Test Item Value Reference Range Interpretation Comments GLUCOSE RANDOM (BEAKER) (test code 157 mg/dL 70-110 H = 652) HGB/HCT (H&H) - STAT [id number] 10:38:00 Test Item Value Reference Range Interpretation Comments HEMOGLOBIN (BEAKER) (test code = 10.8 GM/DL 13.0-16.8 L 410) HEMATOCRIT (BEAKER) (test code = 32.0 % 40.0-50.0 L 411) SODIUM NA-STAT [id number] 10:37:00 Test Item Value Reference Range Interpretation Comments SODIUM (BEAKER) (test code = 381) 139 meq/L 136-145 POTASSIUM-STAT [id number] 10:37:00 Test Item Value Reference Range Interpretation Comments POTASSIUM (BEAKER) (test code = 4.2 meq/L 3.6-5.5 379) SODIUM NA-STAT [id number] 10:09:00 Test Item Value Reference Range Interpretation Comments SODIUM (BEAKER) (test code = 381) 139 meq/L 136-145 POTASSIUM-STAT [id number] 10:09:00 Test Item Value Reference Range Interpretation Comments POTASSIUM (BEAKER) (test code = 5.2 meq/L 3.6-5.5 379) BLOOD GAS, [id number] 10:09:00 Test Item Value Reference Range Interpretation Comments PH ARTERIAL (BEAKER) (test code = 7.43 7.35-7.45 383) PCO2 ARTERIAL (BEAKER) (test code 40 mm Hg 35-45 = 384) PO2 ARTERIAL (BEAKER) (test code = 370 mm Hg 80-90 H 385) O2 SATURATION ARTERIAL (BEAKER) 99.8 % 96.0-97.0 H (test code = 386) HCO3 ARTERIAL (BEAKER) (test code 26 mmol/L 21-29 = 388) BASE EXCESS ARTERIAL (BEAKER) 1.4 mmol/L -2.0-3.0 (test code = 387) PATIENT TEMPERATURE (BEAKER) (test 36.5 code = 1818) FIO2 (BEAKER) (test code = 1819) 81.0 GLUCOSE-STAT [id number] 10:09:00 Test Item Value Reference Range Interpretation Comments GLUCOSE RANDOM (BEAKER) (test code 167 mg/dL 70-110 H = 652) HGB/HCT (H&H) - STAT [id number] 10:09:00 Test Item Value Reference Range Interpretation Comments HEMOGLOBIN (BEAKER) (test code = 11.2 GM/DL 13.0-16.8 L 410) HEMATOCRIT (BEAKER) (test code = 33.0 % 40.0-50.0 L 411) POTASSIUM-STAT [id number] 09:39:00 Test Item Value Reference Range Interpretation Comments POTASSIUM (BEAKER) (test code = 6.4 meq/L 3.6-5.5 HH 379) Sample not hemolyzedGLUCOSE-STAT [id number] 09:37:00 Test Item Value Reference Range Interpretation Comments GLUCOSE RANDOM (BEAKER) (test code 208 mg/dL 70-110 H = 652) HGB/HCT (H&H) - STAT [id number] 09:37:00 Test Item Value Reference Range Interpretation Comments HEMOGLOBIN (BEAKER) (test code = 10.1 GM/DL 13.0-16.8 L 410) HEMATOCRIT (BEAKER) (test code = 30.0 % 40.0-50.0 L 411) SODIUM NA-STAT [id number] 09:37:00 Test Item Value Reference Range Interpretation Comments SODIUM (BEAKER) (test code = 381) 133 meq/L 136-145 L BLOOD GAS, [id number] 09:36:00 Test Item Value Reference Range Interpretation Comments PH ARTERIAL (BEAKER) (test code = 7.46 7.35-7.45 H 383) PCO2 ARTERIAL (BEAKER) (test code 34 mm Hg 35-45 L = 384) PO2 ARTERIAL (BEAKER) (test code 337 mm Hg 80-90 H = 385) O2 SATURATION ARTERIAL (BEAKER) 99.8 % 96.0-97.0 H (test code = 386) HCO3 ARTERIAL (BEAKER) (test code 25 mmol/L 21-29 = 388) BASE EXCESS ARTERIAL (BEAKER) -0.3 mmol/L -2.0-3.0 (test code = 387) PATIENT TEMPERATURE (BEAKER) 32.0 (test code = 1818) FIO2 (BEAKER) (test code = 1819) 74.0 POTASSIUM-STAT [id number] 09:04:00 Test Item Value Reference Range Interpretation Comments POTASSIUM (BEAKER) (test code = 4.9 meq/L 3.6-5.5 379) BLOOD GAS, [id number] 09:04:00 Test Item Value Reference Range Interpretation Comments PH ARTERIAL (BEAKER) (test code = 7.40 7.35-7.45 383) PCO2 ARTERIAL (BEAKER) (test code 37 mm Hg 35-45 = 384) PO2 ARTERIAL (BEAKER) (test code 350 mm Hg 80-90 H = 385) O2 SATURATION ARTERIAL (BEAKER) 99.8 % 96.0-97.0 H (test code = 386) HCO3 ARTERIAL (BEAKER) (test code 24 mmol/L 21-29 = 388) BASE EXCESS ARTERIAL (BEAKER) -2.0 mmol/L -2.0-3.0 (test code = 387) PATIENT TEMPERATURE (BEAKER) 31.0 (test code = 1818) FIO2 (BEAKER) (test code = 1819) 60.0 SODIUM NA-STAT [id number] 09:04:00 Test Item Value Reference Range Interpretation Comments SODIUM (BEAKER) (test code = 381) 133 meq/L 136-145 L GLUCOSE-STAT [id number] 09:04:00 Test Item Value Reference Range Interpretation Comments GLUCOSE RANDOM (BEAKER) (test code 184 mg/dL 70-110 H = 652) HGB/HCT (H&H) - STAT [id number] 09:04:00 Test Item Value Reference Range Interpretation Comments HEMOGLOBIN (BEAKER) (test code = 10.9 GM/DL 13.0-16.8 L 410) HEMATOCRIT (BEAKER) (test code = 32.0 % 40.0-50.0 L 411) BLOOD GAS, [id number] 08:02:00 Test Item Value Reference Range Interpretation Comments PH ARTERIAL (BEAKER) (test code = 7.44 7.35-7.45 383) PCO2 ARTERIAL (BEAKER) (test code 37 mm Hg 35-45 = 384) PO2 ARTERIAL (BEAKER) (test code = 369 mm Hg 80-90 H 385) O2 SATURATION ARTERIAL (BEAKER) 99.8 % 96.0-97.0 H (test code = 386) HCO3 ARTERIAL (BEAKER) (test code 25 mmol/L 21-29 = 388) BASE EXCESS ARTERIAL (BEAKER) 0.5 mmol/L -2.0-3.0 (test code = 387) PATIENT TEMPERATURE (BEAKER) (test 36.0 code = 1818) FIO2 (BEAKER) (test code = 1819) 100.0 CALCIUM, [id number] 08:02:00 Test Item Value Reference Range Interpretation Comments CALCIUM IONIZED (BEAKER) (test 1.20 mmol/L 1.12-1.27 code = 698) PH, BLOOD (BEAKER) (test code = 7.42 1810) GLUCOSE-STAT [id number] 08:01:00 Test Item Value Reference Range Interpretation Comments GLUCOSE RANDOM (BEAKER) (test code 110 mg/dL 70-110 = 652) SODIUM NA-STAT [id number] 08:01:00 Test Item Value Reference Range Interpretation Comments SODIUM (BEAKER) (test code = 381) 139 meq/L 136-145 POTASSIUM-STAT [id number] 08:01:00 Test Item Value Reference Range Interpretation Comments POTASSIUM (BEAKER) (test code = 4.3 meq/L 3.6-5.5 379) HGB/HCT (H&H) - STAT [id number] 08:01:00 Test Item Value Reference Range Interpretation Comments HEMOGLOBIN (BEAKER) (test code = 14.3 GM/DL 13.0-16.8 410) HEMATOCRIT (BEAKER) (test code = 42.0 % 40.0-50.0 411) RAD, CHEST, 1 VIEW, NON [id number] 07:25:00Reason for exam:->Preop screenShould this be performed at the bedside?->Yes [facility] 1940 Sex: MFINAL REPORT INDICATION: Preop screen COMPARISON: None TECHNIQUE: Single frontal view of the chest. FINDINGS: Lungs and pleura: Clear lungs. No effusion.Heart and mediastinum: Normal heart size. Unremarkable mediastinal contours.Osseous structures: No acute abnormality.Other: None. IMPRESSION: No acute intrathoracic abnormality. Signed: Josefina Greenberg Verified Date/Time: 10/02/2020 07:25:50 Reading Location: [facility] Radiology Reading Room SARS-COV2/RT-PCR ([facility])2020-09-29 02:08:00 Test Item Value Reference Range Interpretation Comments SARS-COV2/RT-PCR (test Negative Not Detected, Negative, code = 4624432) See external report for linked test SARS-COV-[address] [facility] (test code = 2735915) Negative result for this test determines that SARS-CoV-2 RNA was not present in the specimen above the Limit of Detection (LOD). However, Negative results do not preclude SARS-CoV-2 infection and should not be used as the sole basis for treatment or patient management decisions. Negative results mustbe combined with clinical observations, patient history, and epidemiological information. A false negative result may occur if a specimen is improperly collected, transported or handled. A false negative result should be considered if patient's recent exposures or clinical presentation indicate that COVID-19 (SARS-CoV-2) is likely and diagnostic tests for other causes of illness are negative. Re-testing should be considered in cases of suspected false negatives.The limit of detection for this assay is 100 copies/mL.This SARS CoV-2 test is a real-time RT-PCR test intended for the qualitative detection of nucleic acid from SARS-CoV-2 in a nasopharyngeal swab specimen collected from individuals susp ected of COVID-19 by their healthcare provider.This test has not been Food and Drug Administration (FDA) cleared or approved. This is a modified version of an approved Emergency Use Authorization (EUA) and is in the process of review by the FDA. Once authorized by the FDA, the issued EUA will be effective until the declaration that circumstances exist justifying the authorization of the emergency use of in vitro diagnostic tests for detection and/or diagnosis of COVID-19 is terminated under Section 564(b)(2) of the Act or the EUA is revoked under Section 564(g) of the Act.Testing was performed using the Steinberg SARS-CoV-2 assay.Fact Sheet for Healthcare Providers:https://www.Gifi.steinberg/boy/ KL_WVWL-TxF-9_RWS_Fmvn_Xywim_47-553875.pdfFact Sheet for Healthcare Patients:https://www.Gifi.[employer] danay/boy/WL_FEGN-RqB-4_Mtqwzzv_Oddu_Slmhk_ML_38-660668T4.pdfPerforming Laboratory:[address] [place] [address] HEMOGLOBIN [id number] 13:34:00 Test Item Value Reference Range Interpretation Comments HEMOGLOBIN A1C (BEAKER) (test code = 5.8 % 4.3-6.1 368) COMPREHENSIVE METABOLIC [id number] 13:00:00 Test Item Value Reference Range Interpretation Comments TOTAL PROTEIN 7.8 gm/dL 6.0-8.3 (BEAKER) (test code = 770) ALBUMIN (BEAKER) 4.7 g/dL 3.5-5.0 (test code = 1145) ALKALINE PHOSPHATASE 86 U/L 40-150 (BEAKER) (test code = 346) BILIRUBIN TOTAL 0.5 mg/dL 0.2-1.2 (BEAKER) (test code = 377) SODIUM (BEAKER) (test 140 meq/L 136-145 code = 381) POTASSIUM (BEAKER) 4.6 meq/L 3.5-5.1 (test code = 379) CHLORIDE (BEAKER) 104 meq/L 98-107 (test code = 382) CO2 (BEAKER) (test 27 meq/L 22-29 code = 355) BLOOD UREA NITROGEN 26 mg/dL 7-21 H (BEAKER) (test code = 354) CREATININE (BEAKER) 1.04 mg/dL 0.57-1.25 (test code = 358) GLUCOSE RANDOM 88 mg/dL 70-105 (BEAKER) (test code = 652) CALCIUM (BEAKER) 10.0 mg/dL 8.4-10.2 (test code = 697) AST (SGOT) (BEAKER) 27 U/L 5-34 (test code = 353) ALT (SGPT) (BEAKER) 30 U/L 6-55 (test code = 347) EGFR (BEAKER) (test 69 mL/min/1.73 ESTIMA AILEEN GFR IS code = 1092) sq m NOT ACCURATE CREATININE CLEARANCE IN PREDICTING GLOMERULAR FILTRATION RATE . ESTIMATED GFR I S NOT APPLICABLE FOR DIALYSIS PATIEN TS. Engineering Assistant ID - [id number] 13:00:00 Test Item Value Reference Range Interpretation Comments MAGNESIUM (BEAKER) (test code = 2.1 mg/dL 1.6-2.6 627) Engineering Assistant ID - RMLIPID [id number] 13:00:00 Test Item Value Reference Range Interpretation Comments TRIGLYCERIDES (BEAKER) (test code = 112 mg/dL 540) CHOLESTEROL (BEAKER) (test code = 117 mg/dL 631) HDL CHOLESTEROL (BEAKER) (test code 38 mg/dL = 976) LDL CHOLESTEROL CALCULATED (BEAKER) 57 mg/dL (test code = 633) Triglyceride Reference Range: Low Risk <150 Borderline 150-199 High Risk 200-499 Very High Risk >=500Cholesterol Reference Range: Low Risk <200 Borderline 200-239 High Risk >240HDL Cholesterol Reference Range: Low Risk >=60 High Risk <40LDL Cholesterol Reference Range: Optimal <100 Near Optimal 100-129 Borderline 130-159 High 160-189 Very High >=190 Engineering Assistant ID - [id number] 12:49:00 Test Item Value Reference Range Interpretation Comments PARTIAL THROMBOPLASTIN TIME 33.9 seconds 22.5-36.0 (BEAKER) (test code = 760) PROTHROMBIN [id number] 12:48:00 Test Item Value Reference Range Interpretation Comments PROTIME (BEAKER) 13.4 seconds 11.9-14.2 (test code = 759) INR (BEAKER) (test 1.06 See_Comment [Automat ed message] code = 370) The system [employer] generated this result transmitted ref erence range: <=5.90. The reference range was not used to int erpret this result as normal/abnormal . Effective 12/15/2018: PT Reference Range ChangeNew: 11.9-14.2 Previous: 11.7- 14.7RECOMMENDED COUMADIN/WARFARIN INR THERAPY RANGESSTANDARD DOSE: 2.0-3.0 Includes: PROPHYLAXIS for venous thrombosis, systemic embolization; TREATMENT for venous thrombosis and/or pulmonary embolus.HIGH RISK: Target INR is2.5-3.5 for patients wiht mechanical heart valves.CBC W/PLT COUNT & AUTO [id number] 12:46:00 Test Item Value Reference Range Interpretation Comments WHITE BLOOD CELL COUNT (BEAKER) 13.9 K/ L 3.5-10.5 H (test code = 775) RED BLOOD CELL COUNT (BEAKER) 5.13 M/ L 4.63-6.08 (test code = 761) HEMOGLOBIN (BEAKER) (test code = 15.6 GM/DL 13.7-17.5 410) HEMATOCRIT (BEAKER) (test code = 45.9 % 40.1-51.0 411) MEAN CORPUSCULAR VOLUME (BEAKER) 89.5 fL 79.0-92.2 (test code = 753) MEAN CORPUSCULAR HEMOGLOBIN 30.4 pg 25.7-32.2 (BEAKER) (test code = 751) MEAN CORPUSCULAR HEMOGLOBIN CONC 34.0 GM/DL 32.3-36.5 (BEAKER) (test code = 752) RED CELL DISTRIBUTION WIDTH 12.3 % 11.6-14.4 (BEAKER) (test code = 412) PLATELET COUNT (BEAKER) (test 182 K/CU MM 150-450 code = 756) MEAN PLATELET VOLUME (BEAKER) 10.9 fL 9.4-12.4 (test code = 754) NUCLEATED RED BLOOD CELLS 0 /100 WBC 0-0 (BEAKER) (test code = 413) NEUTROPHILS RELATIVE PERCENT 72 % (BEAKER) (test code = 429) LYMPHOCYTES RELATIVE PERCENT 17 % (BEAKER) (test code = 430) MONOCYTES RELATIVE PERCENT 7 % (BEAKER) (test code = 431) EOSINOPHILS RELATIVE PERCENT 3 % (BEAKER) (test code = 432) BASOPHILS RELATIVE PERCENT 1 % (BEAKER) (test code = 437) NEUTROPHILS ABSOLUTE COUNT 9.93 K/ L 1.78-5.38 H (BEAKER) (test code = 670) LYMPHOCYTES ABSOLUTE COUNT 2.29 K/ L 1.32-3.57 (BEAKER) (test code = 414) MONOCYTES ABSOLUTE COUNT (BEAKER) 1.02 K/ L 0.30-0.82 H (test code = 415) EOSINOPHILS ABSOLUTE COUNT 0.44 K/ L 0.04-0.54 (BEAKER) (test code = 416) BASOPHILS ABSOLUTE COUNT (BEAKER) 0.08 K/ L 0.01-0.08 (test code = 417) IMMATURE GRANULOCYTES-RELATIVE 1 % 0-1 PERCENT (BEAKER) (test code = 4665)
== END 2021-05-27 14:09 | disposition home or self-care (01) ==
LOC: ER 05:46
DX: M51.16 Intervertebral disc disorders with radiculopathy, lumbar region (principal); I10 Essential (primary) hypertension; E78.00 Pure hypercholesterolemia, unspecified; F17.220 Nicotine dependence, chewing tobacco, uncomplicated; Z88.0 Allergy status to penicillin; Z79.82 Long term (current) use of aspirin
CPT/HCPCS: 85025; 80048; 36415; 82550; 80076; 84550; 85652; 81003; 86140; 72131; 72148; 96375; 96374; 99284; J3010; J2405

== ENCOUNTER 2021-12-09 09:38 | Emergency (ER) | payer OTHER ==
--- OUTSIDE RECORDS SUMMARY | 2021-12-09 09:44 | XMS REPORT | Continuity of Care Document ---
:1940 Author Organization [facility] t Address [address] [place] [address] Care Team Providers Name Role Phone JOSY MCCAULEY Attending Clinician Unavailable EDWIN MORAN Attending Clinician Unavailable Avila GOMEZ Attending Clinician JOSY MCCAULEY Admitting Clinician Unavailable Payers Payer Name Policy Type Policy Number Effective Date Expiration Date S [facility]IC[facility] A B [id number] 2007 00:00:00 [facility] [id number] 2011 00:00:00 Problems This patient has no known problems. Allergies, Adverse Reactions, Alerts Allergy Allergy Status Severity Reaction(s) Onset Inactive Treating Comm ents Source Name Type Date Date Clinician PENICILL Allergy Active Low Rash [facility] Propensi Active Other (See Childhood [facility] ins ty to Comments) 2-21 Childhood [facility] adverse 00:00: of reaction 00 Medicin s to e drug NO KNOWN Allergy Active [facility] Social History Social Habit Start Date Stop Date Quantity Comments Source History [facility] Alcohol Binge of Medicine History [facility] Alcohol Comment of Medici ne [facility] of Med icine History of tobacco Chews Tobacco [facility] use of Medicine History [facility] ge Alcohol Std Drinks of Med icine Tobacco use and 2021-06-03 2021-06-03 User of smokeless Ba [facility] exposure 00:00:00 00:00:00 tobacco of Medicine Alcohol intake 2021-06-03 2021-06-[address] [facility] lege 00:00:00 00:00:00 non-drinker of Medicine (finding) History SDOH 2021-06-03 2021-06-[address] [facility] Venita xiong Alcohol Frequency 00:00:00 00:00:00 of Medi cine Sex Assigned At [address] [facility] 00:00:00 00:00:00 of Medicine Smoking Status Start Date Stop Date Source Ex-smoker 2021-06-03 00:00:00 2021-06-03 [facility] Ordered Filled Start Stop Current Ordering Indication Dosage Frequency Signature Comments Components Source Medication Medication Date Date Medication? Clinician (SIG) Name Name aspirin EC 2020-07 Yes 81mg Take 81 mg B aylor 81 MG 1-15 by mouth. College tablet 09:25: 18 Medicin e carvedilol 2020-[address] [facility] (COREG) 25 0-24 College MG tablet 00:00: of 00 Medicin [address]atin Yes [facility] (ZOCOR) 40 9-06 College MG tablet 00:00: of 00 Medicin e Vital Signs Vital Name Observation Time Observation [...] 175.3 cm WEIGHT 2020-09-28 08:58:00 85.73 kg Systolic blood 2021-06-03 15:21:00 155 mm[Hg] [facility] of pressure Medicine Diastolic blood 2021-06-03 15:21:00 76 mm[Hg] [facility] pressure Medicine Heart rate 2021-06-03 15:21:00 61 /min [facility] Body temperature 2021-06-03 15:21:00 36.22 [facility] Body height 2021-06-03 15:21:00 175.3 cm [facility] 2021-06-03 15:21:00 81.647 kg [facility] BMI 2021-06-03 15:21:00 26.58 kg/m2 [facility] WEIGHT 2020-10-13 08:06:00 85.1 kg WEIGHT 2020-10-09 [...] Procedures This patient has no known procedures. Plan of Care Planned Activity Planned Date Details Comments Source Future Scheduled 2021-06-03 TETANUS SHOT (ADULT) [facility] Test 11:23:55 [code = TETANUS SHOT of Medi cine (ADULT)] Future Scheduled 2021-06-03 BMI FOLLOW UP PLAN [facility] Test 11:23:55 [code = BMI FOLLOW of Medici ne UP PLAN] Future Scheduled 2021-06-03 Hepatitis C [facility] ege Test 11:23:55 screening of Medicine (procedure) [code = 416875681] Future Scheduled 2021-06-03 ZOSTER VACCINE (1 of [facility] Test 11:23:55 2) [code = ZOSTER of Medicin e VACCINE (1 of 2)] Future Scheduled 2021-06-[address] [facility] Test 11:23:55 (Initial) [code = of Medicin e MEDICARE AWV (Initial)] Future Scheduled 2021-06-03 Pneumococcal 65+ (1 [employer] Test 11:23:55 of 1 - PPSV23) [code of Medi cine = Pneumococcal 65+ (1 of 1 - PPSV23)] Future Scheduled 2021-06-03 FLU VACCINE > 6 [facility] C ollege Test 11:23:55 MONTHS [code = FLU of Medici ne VACCINE > 6 MONTHS] Future Scheduled 2021-06-03 FALL SCREEN [code = [employer] Test 11:23:55 FALL SCREEN] of Medicine Future Scheduled 2021-06-03 XR KNEE RIGHT AP, 1 Occurrences [employer] Test 10:26:43 LAT, OBLIQUE [code = starting of Medi cine 27196-3] 06/03/2021 until 06/03/2022 Encounters Start End Encounter Admission Attending Care Care Encounter Source Date/Time Date/Time Type Type Clinicians Facility Department ID 2021-04-27 Inpatient STEPHANIE MCCAULEY Surgery [id number] [facility] 06:55:00 PETRA 2021-06-03 2021-06-03 [id number] [facility] 11:08:05 23:59:00 TAWANA 2021-06-03 2021-06-03 Office Avila MINIVivian [id number] [facility] 09:40:00 16:03:43 Visit Tawana AMBULATOR [id number] College Y [id number] of [id number] [facility] osiel 805 e 2020-11-01 2020-11-01 Outpatient STEPHANIE COHEN [facility] [id number] [facility] 00:00:00 00:00:00 PETRA 2020-09-28 2020-09-28 [facility] [id number] [facility] 00:00:00 00:00:00 2020-09-28 2020-09-28 [facility] [id number] [facility] 00:00:00 00:00:00 2020-09-24 2020-09-24 [facility] [id number] [facility] 00:00:00 00:00:00 PETRA Results Test Description Test Time Test Comments Results Result Sourc e Ruchi RAD, KNEE, 3 2021-06-03 Is this procedure VIEWS, RIGHT 11:48:00 to be performed with weight bearing?->[facility]:->Chronic pain MICHELLE TAPIA of right knee EDWARD : 1940 Sex: M FINAL REPORT Exam: Right knee three views History: Chronic knee pain Comparison: None. Findings: No fracture or malalignment. Joint space narrowing with osteophyte formation and chondrocalcinosis. Vascular calcifications. Impression: Moderate knee osteoarthritis with chondrocalcinosis. Signed: Arcelia Cherry Verified Date/Time: 06/03/2021 11:48:07 Reading Location: [facility] Reading Room [address] [place] [address] ELLANEOUS LAB ORDER 2020-10-23 13:29:00 Test Item Value Reference Range Interpretation Comme nts SCAN RESULT (test code = 7345353) BLOOD [id number] 16:00:00 Test Item Value Reference Range Interpretation Comments CULTURE (BEAKER) (test No growth in 5 days code = 1095) BLOOD [id number] 16:00:00 Test Item Value Reference Range Interpretation Comments CULTURE (BEAKER) (test No growth in 5 days code = 1095) BASIC METABOLIC [id number] 05:26:00 Test Item Value Reference Range Interpretation [...] 697) EGFR (BEAKER) (test 57 mL/min/1.73 ESTIMA NORMA GFR IS code = 1092) sq m NOT ACCURATE CREATININE CLEARANCE IN PREDICTING GLOMERULAR FILTRATION RATE . ESTIMATED GFR I S NOT APPLICABLE FOR DIALYSIS PATIEN TS. [employer]er ID - [id number] 05:26:00 Test Item Value Reference Range Interpretation Comments MAGNESIUM (BEAKER) (test code = 1.8 mg/dL 1.6-2.6 627) [employer] ID - [id number] 05:26:00 Test Item Value Reference Range Interpretation Comments PHOSPHORUS (BEAKER) (test code = 3.5 mg/dL 2.3-4.7 604) [employer] ID - ADMINCBC W/PLT COUNT & AUTO [id number] 04:43:00 Test Item Value Reference Range Interpretation [...] PERCENT (BEAKER) (test code = 2801) SARS-COV2/RT-PCR ([facility])2020-10-13 01:32:00 Test Item Value Reference Range Interpretation Comments SARS-COV2/RT-PCR (test Negative Not Detected, Negative, code = 4374069) See external report for linked test SARS-COV-[address] [facility] PITO (test code = 8838009) Negative result for this test determines that [...] the Steinberg SARS-CoV-2 assay.Fact Sheet for Healthcare Providers:https://www.[employer].steinberg/boy/ XC_SUQM-VhR-5_ZUQ_Wgzc_Ebvth_77-461785.pdfFact Sheet for Healthcare Patients:https://www.[employer] danay/boy/CD_AWHY-BmB-1_Lhpcdnj_Cqhm_Zvvym_KF_75-467708O6.pdfPerforming Laboratory:[facility] [place] [address] BASIC METABOLIC [id number] 17:40:00 Test Item Value Reference Range Interpretation [...] 697) EGFR (BEAKER) (test 59 mL/min/1.73 ESTIMA NORMA GFR IS code = 1092) sq m NOT ACCURATE CREATININE CLEARANCE IN PREDICTING GLOMERULAR FILTRATION RATE . ESTIMATED GFR I S NOT APPLICABLE FOR DIALYSIS PATIEN TS. [employer] ID - DBRAD, CHEST, 1 VIEW, NON [id number] 11:55:00Reason for exam:- >post opShould this be performed at the bedside?->Yes [facility] 1940 Sex: MFINAL REPORT CLINICAL HISTORY: post op TECHNIQUE: 1 view of the chest. COMPARISON: 10/11/2020 IMPRESSION: There are no focal infiltrates or effusions. The cardiomediastinal silhouette is unchanged poststernotomy. Signed: Arcelia Cannon Verified Date/Time: 10/12/2020 11:55:39 Reading Location: [facility] Radiology Reading Room CT, ABDOMEN, WITHOUT [id number] 08:14:00 Unlisted Reason for Exam - Click Yes and Enter Reason Below->NoWill this procedure require oral contrast?->No [facility]ENTER[facility]HELLE [facility] : 1940 Sex: MFINAL REPORT [...] within the left inguinal hernia, extends outside pbdyxxgy-mv-uffu and incompletely evaluated but there is no evidence for bowel obstruction within the tjyjk-zv-eeyq. Predominantly left sided colonic diverticulosis without associated colonic wall thickening or surrounding stranding. Normal appendix. No definite wall thickening. A few loops of liquid filled small bowel in the right lower quadrant, some of which are at the upper limits of normal for diameter with small gas-liquid levels, nonspecific, no transition point identified.Bladder: Incompletelyvisualized, punctate focus of intraluminal bladder gas.Reproductive organs: Outside the vousq-ms-fytb.Lymph nodes: Unremarkable.Peritoneum: Mild Central mesenteric haziness tiny mesenteric lymph nodes,unchanged with.Vessels: Moderate atherosclerotic calcifications.Abdominal wall: Unremarkable.Bones: Multilevel degenerative changes of the lumbar spine. IMPRESSION: Lack of intravenous contrast compromises evaluation of perfusion and for isodense lesions. CT Abdomen Only, a portion of the pelvis is excluded from ilpps-ur-dmcn. 1.A few loops of liquid filled small bowel in the right lower quadrant, some at the upper limits of normal for diameter, nonspecific, no transition point identified.2.Left inguinal hernia containing sigmoid colon, only partially visualized, no evidence for complication within the rgbmu-ja-vryu.3.Hepatic steatosis. Mild splenomegaly.4.Findings of mesenteric panniculitis.5.Non obstructive renal calculi bilaterally. No hydronephrosis.6.Indeterminate mildly hyperattenuating left renal foci, likely mildly hemorrhagic/proteinaceous cysts. A follow-up renal ultrasound is recommended. Signed: Darron Encinas Verified Date/Time: 10/12/2020 08:14:42 Reading Location: [facility] Diagnostic Imaging Reading Room - [place] [address] BASIC METABOLIC [id number] 05:54:00 Test Item Value Reference Range Interpretation [...] 697) EGFR (BEAKER) (test 61 mL/min/1.73 ESTIMA NORMA GFR IS code = 1092) sq m NOT ACCURATE CREATININE CLEARANCE IN PREDICTING GLOMERULAR FILTRATION RATE . ESTIMATED GFR I S NOT APPLICABLE FOR DIALYSIS PATIEN TS. [employer] ID - [id number] 05:54:00 Test Item Value Reference Range Interpretation Comments MAGNESIUM (BEAKER) (test code = 2.0 mg/dL 1.6-2.6 627) [employer] ID - [id number] 05:54:00 Test Item Value Reference Range Interpretation Comments PHOSPHORUS (BEAKER) (test code = 3.8 mg/dL 2.3-4.7 604) [employer] ID - EDASICBC W/PLT COUNT & AUTO [id number] 05:08:00 Test Item Value Reference Range Interpretation [...] code = 2801) URINALYSIS W/ REFLEX URINE [id number] 19:41:00 Test Item Value Reference Range Interpretation [...] = 1583) SOURCE(BEAKER) (test code = 2795) [employer] ID - [auto][employer] ID - techLACTIC ACID, [id number] 16:44:00 Test Item Value Reference Range Interpretation Comments LACTATE BLOOD VENOUS (2) (BEAKER) 1.02 mmol/L 0.50-2.20 (test code = 2872) [employer] ID - DBBASIC METABOLIC [id number] 15:39:00 Test Item Value Reference Range Interpretation [...] 697) EGFR (BEAKER) (test 50 mL/min/1.73 ESTIMA NORMA GFR IS code = 1092) sq m NOT ACCURATE CREATININE CLEARANCE IN PREDICTING GLOMERULAR FILTRATION RATE . ESTIMATED GFR I S NOT APPLICABLE FOR DIALYSIS PATIEN TS. [employer]er ID - DBRAD, ABDOMEN/KUB, 1 VIEW [id number] 09:03:00Reason for exam:- >fever, C. DiffShould this be performed at the bedside?->Yes [facility] : 1940 Sex: MFINAL REPORT [...] excluded on the supine view. Signed: Arcelia Cannonort Verified Date/Time: 10/11/2020 09:03:49 Reading Location: [facility] Radiology Reading Room RAD, CHEST, 1 VIEW, NON [id number] 08:52:00Reason for exam:->feverShould this be performed at the bedside?->Yes [facility] : 1940 Sex: MFINAL REPORT CLINICAL HISTORY: fever TECHNIQUE: 1 view of the chest. COMPARISON: 10/10/2020 IMPRESSION: There are no focal infiltrates or effusions. The cardiomediastinal silhouette is unchanged poststernotomy. Signed: Arcelia Cannon Verified Date/Time: 10/11/2020 08:52:52 Reading Location: [facility] Radiology Reading Room BASIC METABOLIC [id number] 05:36:00 Test Item Value Reference Range Interpretation [...] 697) EGFR (BEAKER) (test 60 mL/min/1.73 ESTIMA NORMA GFR IS code = 1092) sq m NOT ACCURATE CREATININE CLEARANCE IN PREDICTING GLOMERULAR FILTRATION RATE . ESTIMATED GFR I S NOT APPLICABLE FOR DIALYSIS PATIEN TS. [employer]er ID - ACE [id number] 05:36:00 Test Item Value Reference Range Interpretation Comments MAGNESIUM (BEAKER) (test code = 1.9 mg/dL 1.6-2.6 627) [employer] ID - ACE [id number] 05:36:00 Test Item Value Reference Range Interpretation Comments PHOSPHORUS (BEAKER) (test code = 3.8 mg/dL 2.3-4.7 604) [employer]er ID - ACE MCBC W/PLT COUNT & AUTO [id number] 04:54:00 Test Item Value Reference Range Interpretation [...] code = 2801) RAD, ABDOMEN/KUB, 1 VIEW [id number] 21:13:00Reason for exam:->interval change, abdominal distension [facility] : 1940 Sex: MFINAL REPORT [...] loops and decompressed colon are identified. Signed: Jeffry Barlow MDReport Verified Date/Time: 10/10/2020 21:13:00 Reading Location: [address] Transitional Reading Room Electronically signedby: JEFFRY BARLOW MD on 10/10/2020 09:13 PMBASIC METABOLIC [id number] 18:20:00 Test Item Value Reference Range Interpretation [...] 697) EGFR (BEAKER) (test 65 mL/min/1.73 ESTIMA NORMA GFR IS code = 1092) sq m NOT ACCURATE CREATININE CLEARANCE IN PREDICTING GLOMERULAR FILTRATION RATE . ESTIMATED GFR I S NOT APPLICABLE FOR DIALYSIS PATIEN TS. [employer] Be[employer]er ID - [id number] 18:20:00 Test Item Value Reference Range Interpretation Comments MAGNESIUM (BEAKER) (test code = 2.0 mg/dL 1.6-2.6 627) [employer] Be[employer]er ID - BSRAD, CHEST, 1 VIEW, NON [id number] 10:58:00Reason for exam:- >post opShould this be performed at the bedside?->Yes [facility] : 1940 Sex: MFINAL REPORT CLINICAL HISTORY: post op TECHNIQUE: 1 view of the chest. COMPARISON: 10/09/2020 IMPRESSION: There are no infiltrates or significant effusions. Cardiomegaly is again seen poststernotomy. Signed: Arcelia Cannon Verified Date/Time: 10/10/2020 10:58:39 Reading Location: [facility] Radiology Reading Room POCT-GLUCOSE [id number] 07:50:00 Test Item Value Reference Range Interpretation Comments POC-GLUCOSE METER 112 mg/dL 70-110 H : TESTED A T [facility] 6720 (BEAKER) (test code = CULLEN Alvarado [facility], 1538) [address]: [employer] Beveler/Techni preeti ID = [id number] for [facility] BASIC METABOLIC [id number] 05:07:00 Test Item Value Reference Range Interpretation [...] 697) EGFR (BEAKER) (test 65 mL/min/1.73 ESTIMA NORMA GFR IS code = 1092) sq m NOT ACCURATE CREATININE CLEARANCE IN PREDICTING GLOMERULAR FILTRATION RATE . ESTIMATED GFR I S NOT APPLICABLE FOR DIALYSIS PATIEN TS. [employer] Be[employer]er ID - FATMATA [id number] 05:07:00 Test Item Value Reference Range Interpretation Comments MAGNESIUM (BEAKER) (test code = 2.1 mg/dL 1.6-2.6 627) [employer]er ID - FATMATA [id number] 05:07:00 Test Item Value Reference Range Interpretation Comments PHOSPHORUS (BEAKER) (test code = 3.2 mg/dL 2.3-4.7 604) [employer]er ID - FATMATA LCBC W/PLT COUNT & AUTO [id number] 04:29:00 Test Item Value Reference Range Interpretation [...] H PERCENT (BEAKER) (test code = 2801) [id number] 17:00:00 Test Item Value Reference Range Interpretation Comments MAGNESIUM (BEAKER) 2.1 mg/dL 1.6-2.6 Specimen slightly (test code = 627) hemolyzed [employer]er ID - ADMINBASIC METABOLIC [id number] 17:00:00 Test Item Value Reference Range Interpretation [...] 697) EGFR (BEAKER) (test 56 mL/min/1.73 ESTIMA NORMA GFR IS code = 1092) sq m NOT ACCURATE CREATININE CLEARANCE IN PREDICTING GLOMERULAR FILTRATION RATE . ESTIMATED GFR I S NOT APPLICABLE FOR DIALYSIS PATIEN TS. [employer] Be[employer]er ID - ADMINMRSA [id number] 14:20:00 Test Item Value Reference Range Interpretation Comments CULTURE (BEAKER) (test code No MRSA isolated = 1095) BLOOD [id number] 11:00:00 Test Item Value Reference Range Interpretation Comments CULTURE (BEAKER) (test No growth in 5 days code = 1095) BLOOD [id number] 11:00:00 Test Item Value Reference Range Interpretation Comments CULTURE (BEAKER) (test No growth in 5 days code = 1095) RAD, CHEST, 1 VIEW, NON [id number] 07:39:00Reason for exam:->post opShould this be performed at the bedside?->Yes [facility] : 1940 Sex: MFINAL REPORT CLINICAL HISTORY: post op TECHNIQUE: 1 view of the chest. COMPARISON: 10/08/2020 IMPRESSION: There are increased bilateral airspace opacities. There is blunting of the right costophrenic angle. Cardiomegaly is again seen poststernotomy. Signed: Arcelia Cannoneport Verified Date/Time: 10/09/2020 07:39:09 Reading Location: [facility] Radiology Reading Room CT, ABDOMEN, WITHOUT [id number] 07:28:00Unlisted Reason for Exam - Click Yes and Enter Reason Below->No Will this procedure require oral contrast?->No [facility] : 1940 Sex: MFINAL REPORT [...] stones measure up to 0.5 cm. Signed: Justo Hagen MDReport Verified Date/Time: 10/09/2020 07:28:03 Reading Location: [facility] Diagnostic Imaging Reading Room [place] [address] [id number] 04:41:00 Test Item Value Reference Range Interpretation Comments MAGNESIUM (BEAKER) 2.2 mg/dL 1.6-2.6 Specimen slightly (test code = 627) hemolyzed [employer]er ID - ACE [id number] 04:41:00 Test Item Value Reference Range Interpretation Comments PHOSPHORUS (BEAKER) 3.1 mg/dL 2.3-4.7 Specimen slightly (test code = 604) hemolyzed [employer]er ID - ACE MBASIC METABOLIC [id number] 04:41:00 Test Item Value Reference Range Interpretation [...] 697) EGFR (BEAKER) (test 59 mL/min/1.73 ESTIMA NORMA GFR IS code = 1092) sq m NOT ACCURATE CREATININE CLEARANCE IN PREDICTING GLOMERULAR FILTRATION RATE . ESTIMATED GFR I S NOT APPLICABLE FOR DIALYSIS PATIEN TS. [employer] Beveler ID - ACE MCALCIUM, [id number] 04:03:00 Test Item Value Reference Range Interpretation Comments CALCIUM IONIZED (BEAKER) (test 1.17 mmol/L 1.12-1.27 code = 698) PH, BLOOD (BEAKER) (test code = 7.35 1810) CBC W/PLT COUNT & AUTO [id number] 03:48:00 Test Item Value Reference Range Interpretation [...] H PERCENT (BEAKER) (test code = 2801) [id number] 17:02:00 Test Item Value Reference Range Interpretation Comments MAGNESIUM (BEAKER) (test code = 2.3 mg/dL 1.6-2.6 627) [employer] Be[employer]er ID - DBBASIC METABOLIC [id number] 17:02:00 Test Item Value Reference Range Interpretation [...] 697) EGFR (BEAKER) (test 56 mL/min/1.73 ESTIMA NORMA GFR IS code = 1092) sq m NOT ACCURATE CREATININE CLEARANCE IN PREDICTING GLOMERULAR FILTRATION RATE . ESTIMATED GFR I S NOT APPLICABLE FOR DIALYSIS PATIEN TS. [employer] Beveler ID - DBOperator ID - DBRAD, ABDOMEN/KUB, 1 VIEW [id number] 15:08:00 Reason for exam:->abdominal distension [facility] : 1940 Sex: MFINAL REPORT [...] MDReport Verified Date/Time: 10/08/2020 15:08:30 Reading Location: [facility] Radiology Reading Room BASI METABOLIC [id number] 14:03:00 Test Item Value Reference Range Interpretation [...] 697) EGFR (BEAKER) (test 53 mL/min/1.73 ESTIMA NORMA GFR IS code = 1092) sq m NOT ACCURATE CREATININE CLEARANCE IN PREDICTING GLOMERULAR FILTRATION RATE . ESTIMATED GFR I S NOT APPLICABLE FOR DIALYSIS PATIEN TS. [employer] Beveler ID - DBPOCT-GLUCOSE [id number] 11:56:00 Test Item Value Reference Range Interpretation Comments POC-GLUCOSE METER 115 mg/dL 70-110 H : TESTED A T [facility] 6720 (BEDICK) (test code = [place], 1538) [address]: [employer] Edge Beveler/Techni preeti ID = [id number] for Florina pereira (contract), Jul C. DIFFICILE GDH [id number] 11:17:00 Test Item Value Reference Range Interpretation Comments CDT TOXIN (test code Negative Negative = [id number]) CDT GDH ANTIGEN Positive Negative A C. difficile present but (test code = toxin not detec norma. [id number]) Indicates colon ization with non-toxige john strain [...] kit performance was done by the [facility] Microbiology Lab prior to clinical use.RAD, CHEST, 1 VIEW, NON [id number] 04:09:00Reason for exam:->post opShould this be performed at the bedside?->Yes [facility] : 1940 Sex: MFINAL REPORT [...] with enlarged heart.Additional findings: None. Signed: Cali Valentinepkae Verified Date/Time: 10/08/2020 04:09:22 [id number] 04:04:00 Test Item Value Reference Range Interpretation Comments MAGNESIUM (BEAKER) 2.3 mg/dL 1.6-2.6 Specimen slightly (test code = 627) hemolyzed [employer]er ID - [id number] 04:04:00 Test Item Value Reference Range Interpretation Comments PHOSPHORUS (BEAKER) 3.6 mg/dL 2.3-4.7 Specimen slightly (test code = 604) hemolyzed [employer] Be[employer]er ID - EDASIBASIC METABOLIC [id number] 04:04:00 Test Item Value Reference Range Interpretation [...] 697) EGFR (BEAKER) (test 52 mL/min/1.73 ESTIMA NORMA GFR IS code = 1092) sq m NOT ACCURATE CREATININE CLEARANCE IN PREDICTING GLOMERULAR FILTRATION RATE . ESTIMATED GFR I S NOT APPLICABLE FOR DIALYSIS PATIEN TS. [employer] Beveler ID - EDASICBC W/PLT COUNT & AUTO [id number] 03:48:00 Test Item Value Reference Range Interpretation [...] H PERCENT (BEAKER) (test code = 2801) [id number] 18:46:00 Test Item Value Reference Range Interpretation Comments POTASSIUM (BEAKER) 3.9 meq/L 3.5-5.1 Specimen slightly (test code = 379) hemolyzed [employer] Be[employer]er ID - DBBASIC METABOLIC [id number] 14:49:00 Test Item Value Reference Range Interpretation [...] 697) EGFR (BEAKER) (test 66 mL/min/1.73 ESTIMA NORMA GFR IS code = 1092) sq m NOT ACCURATE CREATININE CLEARANCE IN PREDICTING GLOMERULAR FILTRATION RATE . ESTIMATED GFR I S NOT APPLICABLE FOR DIALYSIS PATIEN TS. [employer] ID - [id number] 14:48:00 Test Item Value Reference Range Interpretation Comments MAGNESIUM (BEAKER) (test code = 2.3 mg/dL 1.6-2.6 627) [employer] ID - DBVANCOMYCIN LEVEL, [id number] 11:42:00 Test Item Value Reference Range Interpretation Comments VANCOMYCIN TROUGH (BEAKER) (test 17.2 ug/mL 10.0-20.0 code = 522) [employer] Be[employer] ID - DBBASIC METABOLIC [id number] 07:20:00 Test Item Value Reference Range Interpretation [...] 697) EGFR (BEAKER) (test 63 mL/min/1.73 ESTIMA NORMA GFR IS code = 1092) sq m NOT ACCURATE CREATININE CLEARANCE IN PREDICTING GLOMERULAR FILTRATION RATE . ESTIMATED GFR I S NOT APPLICABLE FOR DIALYSIS PATIEN TS. [employer] ID - [id number] 07:20:00 Test Item Value Reference Range Interpretation Comments MAGNESIUM (BEAKER) (test code = 2.5 mg/dL 1.6-2.6 627) [employer] ID - [id number] 07:20:00 Test Item Value Reference Range Interpretation Comments PHOSPHORUS (BEAKER) (test code = 3.1 mg/dL 2.3-4.7 604) [employer] ID - EDASIBLOOD GAS, [id number] 05:52:00 Test Item Value Reference Range Interpretation [...] 1819) 50.0 CBC W/PLT COUNT & AUTO [id number] 05:47:00 Test Item Value Reference Range Interpretation [...] = 2801) RAD, CHEST, 1 VIEW, NON [id number] 04:16:00Reason for exam:->post opShould this be performed at the bedside?->Yes [facility] 1940 Sex: MFINAL REPORT [...] Stable contours. Stable surgical changes.Additional findings: None. Signed:Anu Vogel Verified Date/Time: 10/07/2020 04:16:04 BASIC METABOLIC [id number] 23:59:00 Test Item Value Reference Range Interpretation [...] 697) EGFR (BEAKER) (test 59 mL/min/1.73 ESTIMA NORMA GFR IS code = 1092) sq m NOT ACCURATE CREATININE CLEARANCE IN PREDICTING GLOMERULAR FILTRATION RATE . ESTIMATED GFR I S NOT APPLICABLE FOR DIALYSIS PATIEN TS. [employer] Be[employer]er ID - [id number] 23:58:00 Test Item Value Reference Range Interpretation Comments MAGNESIUM (BEAKER) (test code = 2.5 mg/dL 1.6-2.6 627) [employer] Be[employer]er ID - DBRAD, ABDOMEN/KUB, 1 VIEW [id number] 18:00:00Reason for exam:- >abdominal distensionShould this be performed at the bedside?->Yes [facility] : 1940 Sex: MFINAL REPORT History: Abdominal [...] MDReport Verified Date/Time: 10/06/2020 18:00:34 Reading Location: [address] Transitional Reading Room POCT- GLUCOSE [id number] 16:50:00 Test Item Value Reference Range Interpretation Comments POC-GLUCOSE METER 112 mg/dL 70-110 H : [facility] (BEAKER) (test code = [place], 1538) [address]: [employer] Beveler/Techni preeti ID = [id number] for CAROLINA ACOSTA BASIC METABOLIC [id number] 16:26:00 Test Item Value Reference Range Interpretation [...] 697) EGFR (BEAKER) (test 51 mL/min/1.73 ESTIMA NORMA GFR IS code = 1092) sq m NOT ACCURATE CREATININE CLEARANCE IN PREDICTING GLOMERULAR FILTRATION RATE . ESTIMATED GFR I S NOT APPLICABLE FOR DIALYSIS PATIEN TS. [employer] Be[employer]er ID - [id number] 16:26:00 Test Item Value Reference Range Interpretation Comments MAGNESIUM (BEAKER) (test code = 2.2 mg/dL 1.6-2.6 627) [employer] Be[employer]er ID - DBSPUTUM CULTURE + GRAM [id number] 13:27:00 Test Item Value Reference Range Interpretation Comments CULTURE (BEAKER) <1+ Normal respiratory (test code = 1095) olena present GRAM STAIN RESULT 1+ WBCs (BEAKER) (test code = 1123) GRAM STAIN RESULT 0-5 epithelial cells (BEAKER) (test code = 65273) GRAM STAIN RESULT No organisms seen (BEAKER) (test code = 01229) VANCOMYCIN LEVEL, [id number] 10:51:00 Test Item Value Reference Range Interpretation Comments VANCOMYCIN TROUGH (BEAKER) (test 16.1 ug/mL 10.0-20.0 code = 522) [employer] Be[employer]er ID - EDASIPOCT-GLUCOSE [id number] 07:53:00 Test Item Value Reference Range Interpretation Comments POC-GLUCOSE METER 118 mg/dL 70-110 H : [facility] (BEAKER[facility] (test code = [place], 1538) [address]: Top Edge Beveler/Techni preeti ID = [id number] for CAROLINA ACOSTA BASIC METABOLIC [id number] 04:59:00 Test Item Value Reference Range Interpretation [...] 697) EGFR (BEAKER) (test 52 mL/min/1.73 ESTIMA NORMA GFR IS code = 1092) sq m NOT ACCURATE CREATININE CLEARANCE IN PREDICTING GLOMERULAR FILTRATION RATE . ESTIMATED GFR I S NOT APPLICABLE FOR DIALYSIS PATIEN TS. [employer] Be[employer]er ID - [id number] 04:59:00 Test Item Value Reference Range Interpretation Comments MAGNESIUM (BEAKER) (test code = 2.3 mg/dL 1.6-2.6 627) [employer] Be[employer]er ID - [id number] 04:59:00 Test Item Value Reference Range Interpretation Comments PHOSPHORUS (BEAKER) (test code = 3.6 mg/dL 2.3-4.7 604) [employer] Be[employer]er ID - EDASICBC W/PLT COUNT & AUTO [id number] 04:55:00 Test Item Value Reference Range Interpretation [...] (BEAKER) (test code = 2801) BLOOD GAS, [id number] 04:18:00 Test Item Value Reference Range Interpretation [...] 1819) 70.0 RAD, CHEST, 1 VIEW, NON [id number] 03:27:00Reason for exam:->post opShould this be performed at the bedside?->Yes [facility] : 1940 Sex: MFINAL REPORT [...] Francis MDReport Verified Date/Time: 10/06/2020 03:27:23 -COV2/RT-PCR ([facility])2020-10-05 23:40:00 Test Item Value Reference Range Interpretation Comments SARS-COV2/RT-PCR (test Negative Not Detected, Negative, code = 3033738) See external report for linked test SARS-COV-2 PERFORMING LAB [facility] (test code = 1534908) Negative result for this test determines that [...] the Steinberg SARS-CoV-2 assay.Fact Sheet for Healthcare Providers:https://www.[employer].steinberg/boy/ QR_NIGX-QoO-8_BZB_Rxku_Cforh_96-704033.pdfFact Sheet for Healthcare Patients:https://www.[employer] danay/boy/QS_TGLM-SvI-5_Fsczdta_Zswa_Mqwrh_JU_80-204041M1.pdfPerforming Laboratory:[address] [place] [address] BASIC METABOLIC [id number] 18:27:00 Test Item Value Reference Range Interpretation [...] 697) EGFR (BEAKER) (test 75 mL/min/1.73 ESTIMA NORMA GFR IS code = 1092) sq m NOT ACCURATE CREATININE CLEARANCE IN PREDICTING GLOMERULAR FILTRATION RATE . ESTIMATED GFR I S NOT APPLICABLE FOR DIALYSIS PATIEN TS. [employer] Be[employer]er ID - [id number] 18:27:00 Test Item Value Reference Range Interpretation Comments MAGNESIUM (BEAKER) (test code = 2.1 mg/dL 1.6-2.6 627) [employer] Be[employer]er ID - DBPOCT-GLUCOSE [id number] 16:40:00 Test Item Value Reference Range Interpretation Comments POC-GLUCOSE METER 111 mg/dL 70-110 H : TESTED A T [facility] 6720 (BEAKER) (test code = [facility] [place], 1538) [address]: Top Edge Beveler/Techni preeti ID = [id number] for NGOC S[place] BLOOD GAS, [id number] 13:49:00 Test Item Value Reference Range Interpretation [...] (BEAKER) (test code = 1819) 100.0 POCT-GLUCOSE [id number] 12:05:00 Test Item Value Reference Range Interpretation Comments POC-GLUCOSE METER 135 mg/dL 70-110 H : TESTED A T [facility] 6720 (BEAKER) (test code = [facility], 1538) [address]: Top Edge Beveler/Techni preeti ID = [id number] for CAROLINA ACOSTA VANCOMYCIN LEVEL, [id number] 10:20:00 Test Item Value Reference Range Interpretation Comments VANCOMYCIN TROUGH (BEAKER) (test 9.5 ug/mL 10.0-20.0 L code = 522) [employer] Edge Be[employer]er ID - JENNY CBASIC METABOLIC [id number] 10:20:00 Test Item Value Reference Range Interpretation [...] 697) EGFR (BEAKER) (test 83 mL/min/1.73 ESTIMA NORMA GFR IS code = 1092) sq m NOT ACCURATE CREATININE CLEARANCE IN PREDICTING GLOMERULAR FILTRATION RATE . ESTIMATED GFR I S NOT APPLICABLE FOR DIALYSIS PATIEN TS. [employer] Beveler ID - JENNY CPOCT-GLUCOSE [id number] 08:45:00 Test Item Value Reference Range Interpretation Comments POC-GLUCOSE METER 114 mg/dL 70-110 H : TESTED A T [facility] 6720 (WANG) (test code = [place], 1538) [address]: Top Edge Beveler/Techni preeti ID = [id number] for ALLY BALBUENA RAD, ABDOMEN/KUB, 1 VIEW [id number] 05:36:00Reason for exam:->abdominal distentionShould this be performed at the bedside?->Yes [facility] : 1940 Sex: MFINAL REPORT RAD, ABDOMEN/KUB, 1 VIEW AP CLINICAL HISTORY: abdominal distention TECHNIQUE: RAD, ABDOMEN/KUB, 1 VIEW AP COMPARISON: October 02, 2020 IMPRESSION: Dilatedsmall bowel loops within the right lower quadrant are redemonstrated and concerning for ileus or mechanical obstruction. Gas distended large bowel is again noted. No pneumatosis or free air identified.Stable osseous structures. Signed: Jeferson Franciseport Verified Date/Time: 10/05/2020 05:36:47 RAD, CHEST, 1 VIEW, NON [id number] 05:13:00Reason for exam:->post opShould this be performed at the bedside?->Yes [facility] : 1940 Sex: MFINAL REPORT [...] will relay them to the physician. Signed: Anu Vogel Verified Date/Time: 10/05/2020 05:13:33 [id number] 03:23:00 Test Item Value Reference Range Interpretation Comments MAGNESIUM (BEAKER) 2.2 mg/dL 1.6-2.6 Specimen slightly (test code = 627) hemolyzed [employer] Be[employer]er ID - DBBASIC METABOLIC [id number] 03:23:00 Test Item Value Reference Range Interpretation [...] 697) EGFR (BEAKER) (test 79 mL/min/1.73 ESTIMA NORMA GFR IS code = 1092) sq m NOT ACCURATE CREATININE CLEARANCE IN PREDICTING GLOMERULAR FILTRATION RATE . ESTIMATED GFR I S NOT APPLICABLE FOR DIALYSIS PATIEN TS. [employer] Be[employer]er ID - DBCBC W/PLT COUNT & AUTO [id number] 03:19:00 Test Item Value Reference Range Interpretation [...] 0-1 PERCENT (BEAKER) (test code = 2801) [id number] 03:14:00 Test Item Value Reference Range Interpretation Comments PARTIAL THROMBOPLASTIN TIME 41.5 seconds 22.5-36.0 H (BEAKER) (test code = 760) PROTHROMBIN [id number] 03:13:00 Test Item Value Reference Range Interpretation Comments PROTIME (BEAKER) 17.7 seconds 11.9-14.2 H (test code = 759) INR (BEAKER) (test 1.50 See_Comment [Automat ed message] code = 370) The system Couplewise generated this result transmitted ref erence range: <=5.90. The reference range was not used to int erpret this result as normal/abnormal . Effective 12/15/2018: PT Reference Range ChangeNew: 11.9-14.2 Previous: 11.7- 14.7RECOMMENDED COUMADIN/WARFARIN INR THERAPY RANGESSTANDARD DOSE: 2.0-3.0 Includes: PROPHYLAXIS for venous thrombosis, systemic embolization; TREATMENT for venous thrombosis and/or pulmonary embolus.HIGH RISK: Target INR is2.5-3.5 for patients wiht mechanical heart valves.BLOOD GAS, [id number] 03:00:00 Test Item Value Reference Range Interpretation [...] (test code = 1819) 100.0 BLOOD GAS, [id number] 00:05:00 Test Item Value Reference Range Interpretation [...] (test code = 1819) 100.0 BLOOD GAS, [id number] 20:35:00 Test Item Value Reference Range Interpretation [...] (test code = 1819) 100.0 SODIUM NA-STAT [id number] 20:35:00 Test Item Value Reference Range Interpretation Comments SODIUM (BEAKER) (test code = 381) 132 meq/L 136-145 L GLUCOSE-STAT [id number] 20:35:00 Test Item Value Reference Range Interpretation Comments GLUCOSE RANDOM (BEAKER) (test code 126 mg/dL 70-110 H = 652) HGB/HCT (H&H) - STAT [id number] 20:35:00 Test Item Value Reference Range Interpretation Comments HEMOGLOBIN (BEAKER) (test code = 9.7 GM/DL 13.0-16.8 L 410) HEMATOCRIT (BEAKER) (test code = 29.0 % 40.0-50.0 L 411) POTASSIUM-STAT [id number] 20:34:00 Test Item Value Reference Range Interpretation Comments POTASSIUM (BEAKER) (test code = 3.8 meq/L 3.6-5.5 379) BASIC METABOLIC [id number] 16:59:00 Test Item Value Reference Range Interpretation [...] 697) EGFR (BEAKER) (test 63 mL/min/1.73 ESTIMA NORMA GFR IS code = 1092) sq m NOT ACCURATE CREATININE CLEARANCE IN PREDICTING GLOMERULAR FILTRATION RATE . ESTIMATED GFR I S NOT APPLICABLE FOR DIALYSIS PATIEN TS. [employer] Be[employer]er ID - [id number] 16:59:00 Test Item Value Reference Range Interpretation Comments MAGNESIUM (BEAKER) (test code = 2.3 mg/dL 1.6-2.6 627) [employer] Be[employer]er ID - [id number] 16:59:00 Test Item Value Reference Range Interpretation Comments PHOSPHORUS (BEAKER) (test code = 2.6 mg/dL 2.3-4.7 604) [employer] Edge Beveler ID - DBCALCIUM, [id number] 16:44:00 Test Item Value Reference Range Interpretation Comments CALCIUM IONIZED (BEAKER) (test 1.13 mmol/L 1.12-1.27 code = 698) PH, BLOOD (BEAKER) (test code = 7.49 1810) RAD, ABDOMEN/KUB, 1 VIEW [id number] 14:39:00Reason for exam:->Abdominal distentionShould this be performed at the bedside?->Yes [facility] : 1940 Sex: MFINAL REPORT RAD, ABDOMEN/KUB, 1 VIEW AP CLINICAL INDICATION: Ab dominal distention COMPARISON: None TECHNIQUE: Single, frontal radiograph of the abdomen. FINDINGS: The bowel gas pattern gaseous distention of multiple loops of small and large bowel concerning forileus or possibly distal obstruction The regional skeleton is intact. Signed: Preciuos Greenbergeport Verified Date/Time: 10/04/2020 14:39:57 Reading Location: [facility] Radiology Reading Room CBC W/PLT COUNT & AUTO [id number] 07:05:00 Test Item Value Reference Range Interpretation [...] CONCENTRATION Decreased (CELLAVISION)(BEAKER) (test code = 3438) [employer] Beveler ID - Maria Elena Conklin comments: Slide comments:BLOOD GAS, [id number] 06:31:00 Test Item Value Reference Range Interpretation [...] FIO2 (BEAKER) (test code = 1819) 100.0 [id number] 04:40:00 Test Item Value Reference Range Interpretation Comments MAGNESIUM (BEAKER) 2.3 mg/dL 1.6-2.6 Specimen slightly (test code = 627) hemolyzed [employer] Beveler ID - ACE MBASIC METABOLIC [id number] 04:40:00 Test Item Value Reference Range Interpretation [...] 697) EGFR (BEAKER) (test 62 mL/min/1.73 ESTIMA NORMA GFR IS code = 1092) sq m NOT ACCURATE CREATININE CLEARANCE IN PREDICTING GLOMERULAR FILTRATION RATE . ESTIMATED GFR I S NOT APPLICABLE FOR DIALYSIS PATIEN TS. Top Edge Beveler ID - ACE MPROTHROMBIN [id number] 04:03:00 Test Item Value Reference Range Interpretation Comments PROTIME (BEAKER) 16.9 seconds 11.9-14.2 H (test code = 759) INR (BEAKER) (test 1.43 See_Comment [Automat ed message] code = 370) The system Couplewise generated this result transmitted ref erence range: <=5.90. The reference range was not used to int erpret this result as normal/abnormal . Effective 12/15/2018: PT Reference Range ChangeNew: 11.9-14.2 Previous: 11.7- 14.7RECOMMENDED COUMADIN/WARFARIN INR THERAPY RANGESSTANDARD DOSE: 2.0-3.0 Includes: PROPHYLAXIS for venous thrombosis, systemic embolization; TREATMENT for venous thrombosis and/or pulmonary embolus.HIGH RISK: Target INR is2.5-3.5 for patients wiht mechanical heart valves.[id number] 03:59:00 Test Item Value Reference Range Interpretation Comments FIBRINOGEN LEVEL (BEAKER) (test 509 mg/dl 225-434 H code = 658) [id number] 03:59:00 Test Item Value Reference Range Interpretation Comments PARTIAL THROMBOPLASTIN TIME 42.9 seconds 22.5-36.0 H (BEAKER) (test code = 760) CALCIUM, [id number] 03:46:00 Test Item Value Reference Range Interpretation Comments CALCIUM IONIZED (BEAKER) (test 1.09 mmol/L 1.12-1.27 L code = 698) PH, BLOOD (BEAKER) (test code = 7.47 1810) BLOOD GAS, [id number] 03:44:00 Test Item Value Reference Range Interpretation [...] 1819) 100.0 RAD, CHEST, 1 VIEW, NON [id number] 01:52:00Reason for exam:->post opShould this be performed at the bedside?->Yes [facility] DM : 1940 Sex: MFINAL REPORT RAD, CHEST, 1 VIEW, NON DEPT INDICATION: post op COM PARISON: Prior day's exam FINDINGS: Portable frontal view of the chest. IMPRESSION: Support Lines: Stable. Lungs and pleura: Unchanged airspace and pleural opacities. No pneumothorax.Heart and mediastinum: Stable contours. Stable surgical changes.Additional findings: None. Signed: Anu Vogel Verified Date/Time: 10/04/2020 01:52:59 BASIC METABOLIC [...] 697) EGFR (BEAKER) (test 63 mL/min/1.73 ESTIMA NORMA GFR IS code = 1092) sq m NOT ACCURATE CREATININE CLEARANCE IN PREDICTING GLOMERULAR FILTRATION RATE . ESTIMATED GFR I S NOT APPLICABLE FOR DIALYSIS PATIEN TS. Top Edge Beveler ID - PIAYA LBASIC METABOLIC [id number] 18:22:00 Test Item Value Reference Range Interpretation [...] 697) EGFR (BEAKER) (test 65 mL/min/1.73 ESTIMA NORMA GFR IS code = 1092) sq m NOT ACCURATE CREATININE CLEARANCE IN PREDICTING GLOMERULAR FILTRATION RATE . ESTIMATED GFR I S NOT APPLICABLE FOR DIALYSIS PATIEN TS. Top Edge Beveler ID - BSBLOOD GAS, [id number] 18:07:00 Test Item Value Reference Range Interpretation [...] (test code = 1819) 100.0 BASIC METABOLIC [id number] 14:58:00 Test Item Value Reference Range Interpretation [...] 697) EGFR (BEAKER) (test 59 mL/min/1.73 ESTIMA NORMA GFR IS code = 1092) sq m NOT ACCURATE CREATININE CLEARANCE IN PREDICTING GLOMERULAR FILTRATION RATE . ESTIMATED GFR I S NOT APPLICABLE FOR DIALYSIS PATIEN TS. Top Edge Beveler ID - BSPOCT-GLUCOSE [id number] 06:53:00 Test Item Value Reference Range Interpretation Comments POC-GLUCOSE METER 109 mg/dL 70-110 : TESTED A T [facility] 6720 (BEAKER) (test code = [facility], 1538) [address]: Top Edge Beveler/Techni preeti ID = [id number] for El lis (contract), Daphne a POCT-GLUCOSE [id number] 05:36:00 Test Item Value Reference Range Interpretation Comments POC-GLUCOSE METER 114 mg/dL 70-110 H : TESTED A T [facility] 6720 (BEAKER) (test code = [facility], 1538) [address]: Top Edge Beveler/Techni preeti ID = [id number] for El lis (contract), Daphne a CBC W/PLT COUNT & AUTO [id number] 05:35:00 Test Item Value Reference Range Interpretation [...] CONCENTRATION Decreased (CELLAVISION)(BEAKER) (test code = 3438) [employer] Edge Beveler ID - Omar comments: Slide comments:POCT-GLUCOSE [id number] 05:26:00 Test Item Value Reference Range Interpretation Comments POC-GLUCOSE METER 127 mg/dL 70-110 H : TESTED A T [facility] 6720 (BEAKER) (test code = [place], 1538) [address]: Top Edge Beveler/Techni preeti ID = [id number] for Jonas aguirre (contract), Daphne zarate LACTIC ACID, [id number] 04:10:00 Test Item Value Reference Range Interpretation Comments LACTATE BLOOD ARTERIAL (2) 2.6 mmol/L 0.5-2.2 H (BEAKER) (test code = 2874) Top Edge Beveler ID - [id number] 04:04:00 Test Item Value Reference Range Interpretation Comments FIBRINOGEN LEVEL (BEAKER) (test 237 mg/dl 225-434 code = 658) BASIC METABOLIC [id number] 04:01:00 Test Item Value Reference Range Interpretation [...] 697) EGFR (BEAKER) (test 67 mL/min/1.73 ESTIMA NORMA GFR IS code = 1092) sq m NOT ACCURATE CREATININE CLEARANCE IN PREDICTING GLOMERULAR FILTRATION RATE . ESTIMATED GFR I S NOT APPLICABLE FOR DIALYSIS PATIEN TS. Top Edge Beveler ID - [id number] 04:01:00 Test Item Value Reference Range Interpretation Comments MAGNESIUM (BEAKER) (test code = 1.9 mg/dL 1.6-2.6 627) Top Edge Beveler ID - EDASICALCIUM, [id number] 03:58:00 Test Item Value Reference Range Interpretation Comments CALCIUM IONIZED (BEAKER) (test 1.09 mmol/L 1.12-1.27 L code = 698) PH, BLOOD (BEAKER) (test code = 7.51 1810) RAD, CHEST, 1 VIEW, NON [id number] 03:56:00Reason for exam:->post opShould this be performed at the bedside?->Yes [facility] : 1940 Sex: MFINAL REPORT CLINICAL INDICATION: Postop Comparison: 10/02/2020 The patient is rotated to the right. The cardiomediastinal contours are stable. The lung volumes are low but stable after extubation. Central pulmonary vascular prominence and bilateral parenchymal opacities are similar to previous. There is no pneumothorax. Remaining support lines are stable. Signed: Kayden Flores MDReport Verified Date/Time: 10/03/2020 03:56:14 [id number] 03:53:00 Test Item Value Reference Range Interpretation Comments PARTIAL THROMBOPLASTIN TIME 36.9 seconds 22.5-36.0 H (BEAKER) (test code = 760) PROTHROMBIN [id number] 03:52:00 Test Item Value Reference Range Interpretation Comments PROTIME (BEAKER) 17.0 seconds 11.9-14.2 H (test code = 759) INR (BEAKER) (test 1.42 See_Comment [Automat ed message] code = 370) The system Couplewise generated this result transmitted ref erence range: <=5.90. The reference range was not used to int erpret this result as normal/abnormal . Effective 12/15/2018: PT Reference Range ChangeNew: 11.9-14.2 Previous: 11.7- 14.7RECOMMENDED COUMADIN/WARFARIN INR THERAPY RANGESSTANDARD DOSE: 2.0-3.0 Includes: PROPHYLAXIS for venous thrombosis, systemic embolization; TREATMENT for venous thrombosis and/or pulmonary embolus.HIGH RISK: Target INR is2.5-3.5 for patients wiht mechanical heart valves.BLOOD GAS, [id number] 03:51:00 Test Item Value Reference Range Interpretation [...] (BEAKER) (test 37.0 code = 1818) POCT-GLUCOSE [id number] 02:13:00 Test Item Value Reference Range Interpretation Comments POC-GLUCOSE METER 125 mg/dL 70-110 H : TESTED A T [facility] 6720 (BEAKER) (test code = [place], 1538) [address]: Top Edge Beveler/Techni preeti ID = [id number] for Jonas carla (contract), Daphne a LACTIC ACID, [id number] 00:42:00 Test Item Value Reference Range Interpretation Comments LACTATE BLOOD ARTERIAL (2) 4.9 mmol/L 0.5-2.2 HH (BEAKER) (test code = 2874) Top Edge Beveler ID - BSBLOOD GAS, [id number] 00:25:00 Test Item Value Reference Range Interpretation [...] (BEAKER) (test code = 1819) 21.0 GLUCOSE-STAT [id number] 00:25:00 Test Item Value Reference Range Interpretation Comments GLUCOSE RANDOM (BEAKER) (test code 169 mg/dL 70-110 H = 652) HGB/HCT (H&H) - STAT [id number] 00:25:00 Test Item Value Reference Range Interpretation Comments HEMOGLOBIN (BEAKER) (test code = 9.6 GM/DL 13.0-16.8 L 410) HEMATOCRIT (BEAKER) (test code = 28.0 % 40.0-50.0 L 411) SODIUM NA-STAT [id number] 00:24:00 Test Item Value Reference Range Interpretation Comments SODIUM (BEAKER) (test code = 381) 143 meq/L 136-145 POTASSIUM-STAT [id number] 00:24:00 Test Item Value Reference Range Interpretation Comments POTASSIUM (BEAKER) (test code = 4.0 meq/L 3.6-5.5 379) POCT-GLUCOSE [id number] 00:02:00 Test Item Value Reference Range Interpretation Comments POC-GLUCOSE METER 145 mg/dL 70-110 H : TESTED A T [facility] 6720 (BEAKER) (test code = [facility], 153) [address]: Top Edge Beveler/Techni preeit ID = [id number] for El lis (contract), Daphne a POCT-GLUCOSE [id number] 23:10:00 Test Item Value Reference Range Interpretation Comments POC-GLUCOSE METER 151 mg/dL 70-110 H : TESTED A T [facility] 6720 (BEAKER) (test code = [facility], 153) [address]: Top Edge Beveler/Techni preeti ID = [id number] for El lis (contract), Daphne a POCT-GLUCOSE [id number] 21:38:00 Test Item Value Reference Range Interpretation Comments POC-GLUCOSE METER 132 mg/dL 70-110 H : TESTED A T [facility] 6720 (BEAKER) (test code = [place], 1538) [address]: [employer] Beveler/Techni preeti ID = [id number] for Jonas aguirre (contract), Daphne zarate LACTIC ACID, [id number] 21:23:00 Test Item Value Reference Range Interpretation Comments LACTATE BLOOD ARTERIAL (2) 4.0 mmol/L 0.5-2.2 HH (BEAKER) (test code = 2874) [employer] ID - BSSODIUM NA-STAT [id number] 21:05:00 Test Item Value Reference Range Interpretation Comments SODIUM (BEAKER) (test code = 381) 143 meq/L 136-145 POTASSIUM-STAT [id number] 21:05:00 Test Item Value Reference Range Interpretation Comments POTASSIUM (BEAKER) (test code = 4.6 meq/L 3.6-5.5 379) BLOOD GAS, [id number] 21:05:00 Test Item Value Reference Range Interpretation [...] (BEAKER) (test code = 1819) 21.0 GLUCOSE-STAT [id number] 21:05:00 Test Item Value Reference Range Interpretation Comments GLUCOSE RANDOM (BEAKER) (test code 135 mg/dL 70-110 H = 652) HGB/HCT (H&H) - STAT [id number] 21:05:00 Test Item Value Reference Range Interpretation Comments HEMOGLOBIN (BEAKER) (test code = 9.7 GM/DL 13.0-16.8 L 410) HEMATOCRIT (BEAKER) (test code = 29.0 % 40.0-50.0 L 411) POCT-GLUCOSE [id number] 20:19:00 Test Item Value Reference Range Interpretation Comments POC-GLUCOSE METER 125 mg/dL 70-110 H : TESTED A T [facility] 6720 (BEAKER) (test code = [facility], 1538) [id number]: [employer] Edge Beveler/Techni preeti ID = [id number] for Jonas lis (contract), Daphne a POCT-GLUCOSE [id number] 19:22:00 Test Item Value Reference Range Interpretation Comments POC-GLUCOSE METER 147 mg/dL 70-110 H : TESTED A T [facility] 6720 (BEAKER) (test code = [facility], 1538) [id number]: [employer] Beveler/Techni preeti ID = [id number] for Jonas lis (contract), Daphne a LACTIC ACID, [id number] 18:02:00 Test Item Value Reference Range Interpretation Comments LACTATE BLOOD ARTERIAL (2) 7.4 mmol/L 0.5-2.2 HH (BEAKER) (test code = 2874) [employer] Be[employer]er ID - ADMINPOCT-GLUCOSE [id number] 17:26:00 Test Item Value Reference Range Interpretation Comments POC-GLUCOSE METER 173 mg/dL 70-110 H : TESTED A T [facility] 6720 (BEAKER) (test code = [facility], 1538) [id number]: [employer] Beveler/Techni preeti ID = [id number] for TORRES BORREGO BLOOD GAS, [id number] 17:14:00 Test Item Value Reference Range Interpretation [...] (BEAKER) (test code = 1819) 50.0 GLUCOSE-STAT [id number] 17:14:00 Test Item Value Reference Range Interpretation Comments GLUCOSE RANDOM (BEAKER) (test code 184 mg/dL 70-110 H = 652) HGB/HCT (H&H) - STAT [id number] 17:14:00 Test Item Value Reference Range Interpretation Comments HEMOGLOBIN (BEAKER) (test code = 10.4 GM/DL 13.0-16.8 L 410) HEMATOCRIT (BEAKER) (test code = 31.0 % 40.0-50.0 L 411) SODIUM NA-STAT [id number] 17:13:00 Test Item Value Reference Range Interpretation Comments SODIUM (BEAKER) (test code = 381) 141 meq/L 136-145 POTASSIUM-STAT [id number] 17:13:00 Test Item Value Reference Range Interpretation Comments POTASSIUM (BEAKER) (test code = 4.6 meq/L 3.6-5.5 379) BLOOD GAS, [id number] 16:39:00 Test Item Value Reference Range Interpretation [...] (test code = 1819) 50.0 BASIC METABOLIC [id number] 16:23:00 Test Item Value Reference Range Interpretation [...] 697) EGFR (BEAKER) (test 76 mL/min/1.73 ESTIMA NORMA GFR IS code = 1092) sq m NOT ACCURATE CREATININE CLEARANCE IN PREDICTING GLOMERULAR FILTRATION RATE . ESTIMATED GFR I S NOT APPLICABLE FOR DIALYSIS PATIEN TS. [employer] Beveler ID - ADMINLACTIC ACID, [id number] 16:16:00 Test Item Value Reference Range Interpretation Comments LACTATE BLOOD ARTERIAL (2) 6.5 mmol/L 0.5-2.2 HH (BEAKER) (test code = 2874) [employer] Beveler ID - ADMINPOCT-GLUCOSE [id number] 15:38:00 Test Item Value Reference Range Interpretation Comments POC-GLUCOSE METER 152 mg/dL 70-110 H : TESTED A T [facility] 6720 (BEAKER) (test code = [place], 1538) [id number]: [employer] Edge Beveler/Techni preeti ID = [id number] for EBEN ENGEL RAD, ABDOMEN/KUB, 1 VIEW [id number] 15:22:00Reason for exam:->distended abdomen, rising lactate [facility] DM : 1940 Sex: MFINAL REPORT RAD, ABDOMEN/KUB, 1 VIEW AP CLINICAL INDICATION: di stended abdomen, rising lactate COMPARISON: None TECHNIQUE: Single, frontal radiograph of the abdomen. FINDINGS: Bowel gas pattern is poorly evaluated with only single view which does not include the entire abdomen. NG side-port overlies the stomach. Signed: Precious Greenberg Verified Date/Time: 10/02/2020 15:22:03 Reading Location: [facility] Radiology Reading Room IC ACID, [id number] 14:22:00 Test Item Value Reference Range Interpretation Comments LACTATE BLOOD ARTERIAL (2) 5.0 mmol/L 0.5-2.2 HH (BEAKER) (test code = 2874) [employer] Beveler ID - [place] FPOCT-GLUCOSE [id number] 13:39:00 Test Item Value Reference Range Interpretation Comments POC-GLUCOSE METER 137 mg/dL 70-110 H : TESTED A T [facility] 6720 (BEAKER) (test code = [place], 1538) [address]: [employer] Edge Beveler/Techni preeti ID = [id number] for TORRES BORREGO BLOOD GAS, [id number] 13:34:00 Test Item Value Reference Range Interpretation [...] 1819) 40.0 CBC W/PLT COUNT & AUTO [id number] 12:35:00 Test Item Value Reference Range Interpretation [...] CONCENTRATION Decreased (CELLAVISION)(BEAKER) (test code = 3438) [employer] Beveler ID - [id number] ID - Maria Elena Conklin comments: Slide comments: COMPREHENSIVE METABOLIC [id number] 12:17:00 Test Item Value Reference Range Interpretation [...] hemolyzed EGFR (BEAKER) (test 92 mL/min/1.73 ESTIMA NORMA GFR IS code = 1092) sq m NOT ACCURATE CREATININE CLEARANCE IN PREDICTING GLOMERULAR FILTRATION RATE . ESTIMATED GFR I S NOT APPLICABLE FOR DIALYSIS PATIEN TS. [employer] Beveler ID Brandi VERMA [id number] 12:16:00 Test Item Value Reference Range Interpretation Comments MAGNESIUM (BEAKER) 2.2 mg/dL 1.6-2.6 Specimen slightly (test code = 627) hemolyzed [employer] Be[employer]er ID Brandi VERMA [id number] 12:16:00 Test Item Value Reference Range Interpretation Comments GLUCOSE RANDOM (BEAKER) (test code 123 mg/dL 70-105 H = 652) [id number] 12:16:00 Test Item Value Reference Range Interpretation Comments POTASSIUM (BEAKER) 3.9 meq/L 3.5-5.1 Specimen slightly (test code = 379) hemolyzed PROTHROMBIN TIME/[id number] 12:04:00 Test Item Value Reference Range Interpretation Comments PROTIME (BEAKER) 19.7 seconds 11.9-14.2 H (test code = 759) INR (BEAKER) (test 1.72 See_Comment [Automat ed message] code = 370) The system Couplewise generated this result transmitted ref erence range: <=5.90. The reference range was not used to int erpret this result as normal/abnormal . Effective 12/15/2018: PT Reference Range ChangeNew: 11.9-14.2 Previous: 11.7- 14.7RECOMMENDED COUMADIN/WARFARIN INR THERAPY RANGESSTANDARD DOSE: 2.0-3.0 Includes: PROPHYLAXIS for venous thrombosis, systemic embolization; TREATMENT for venous thrombosis and/or pulmonary embolus.HIGH RISK: Target INR is2.5-3.5 for patients wiht mechanical heart valves.[id number] 12:04:00 Test Item Value Reference Range Interpretation Comments FIBRINOGEN LEVEL (BEAKER) (test 204 mg/dl 225-434 L code = 658) [id number] 12:04:00 Test Item Value Reference Range Interpretation Comments PARTIAL THROMBOPLASTIN TIME 33.6 seconds 22.5-36.0 (BEAKER) (test code = 760) RAD, CHEST, 1 VIEW, NON [id number] 12:02:00Reason for exam:->post opShould this be performed at the bedside?->Yes [facility] 1940 Sex: MFINAL REPORT [...] and mediastinum: Stable contours.Additional findings: None. Signed: Precious Greenberg Verified Date/Time: 10/02/2020 12:02:34 Reading Location: [facility] Radiology Reading Room Electronicallysigned by: PRECIOUS GREENBERG MD on 10/02/2020 12:02 PMLACTIC ACID, [id number] 12:01:00 Test Item Value Reference Range Interpretation Comments LACTATE BLOOD 3.3 mmol/L 0.5-2.2 H Specimen sligh tly ARTERIAL (2) (BEAKER) hemoly zed (test code = 2874) [employer] Beveler ID - [place] FBLOOD GAS, [id number] 11:50:00 Test Item Value Reference Range Interpretation [...] (BEAKER) (test code = 1819) 60.0 GLUCOSE-STAT [id number] 11:50:00 Test Item Value Reference Range Interpretation Comments GLUCOSE RANDOM (BEAKER) (test code 124 mg/dL 70-110 H = 652) HGB/HCT (H&H) - STAT [id number] 11:50:00 Test Item Value Reference Range Interpretation Comments HEMOGLOBIN (BEAKER) (test code = 12.0 GM/DL 13.0-16.8 L 410) HEMATOCRIT (BEAKER) (test code = 35.0 % 40.0-50.0 L 411) OXYGEN SATURATION, [id number] 11:50:00 Test Item Value Reference Range Interpretation Comments O2 SATURATION (MEASURED) (BEAKER) 85.6 % (test code = 1455) CALCIUM, [id number] 11:50:00 Test Item Value Reference Range Interpretation Comments CALCIUM IONIZED (BEAKER) (test 1.16 mmol/L 1.12-1.27 code = 698) PH, BLOOD (BEAKER) (test code = 7.31 1810) SODIUM NA-STAT [id number] 11:49:00 Test Item Value Reference Range Interpretation Comments SODIUM (BEAKER) (test code = 381) 141 meq/L 136-145 POTASSIUM-STAT [id number] 11:49:00 Test Item Value Reference Range Interpretation Comments POTASSIUM (BEAKER) (test code = 3.7 meq/L 3.6-5.5 379) [id number] 11:07:00 Test Item Value Reference Range Interpretation Comments ACTIVATED CLOTTING TIME 109 sec : 74 -137 seconds, (BEAKER) (test code = Baseli ne: TESTED AT 441) [address], [facility] 30: Top Edge Beveler/Techni preeti ID = [id number] for Luis Hortona [id number] 11:06:00 Test Item Value Reference Range Interpretation Comments ACTIVATED CLOTTING TIME 538 sec : 74 -137 seconds, (BEAKER) (test code = Baseli ne: TESTED AT 441) [place] [id number] 30: [employer] Edge Beveler/Techni preeti ID = [id number] for MART ADAMIO [id number] 11:06:00 Test Item Value Reference Range Interpretation Comments ACTIVATED CLOTTING TIME 571 sec : 74 -137 seconds, (BEAKER) (test code = Baseli ne: TESTED AT 441) [address], [facility] 30: [employer] Edge Beveler/Techni preeti ID = [id number] for Luis Hortona [id number] 11:06:00 Test Item Value Reference Range Interpretation Comments ACTIVATED CLOTTING TIME 731 sec : 74 -137 seconds, (BEAKER) (test code = Baseli ne: TESTED AT 441) [address], [facility] 30: [employer] Edge Beveler/Techni pretei ID = [id number] for Luis Hortona [id number] 11:06:00 Test Item Value Reference Range Interpretation Comments ACTIVATED CLOTTING TIME 400 sec : 74 -137 seconds, (BEAKER) (test code = Baseli ne: TESTED AT 441) [address], [facility] 30: [employer] Edge Beveler/Techni preeti ID = [id number] for Luis Hortona PROTHROMBIN [id number] 10:54:00 Test Item Value Reference Range Interpretation Comments PROTIME (BEAKER) 21.0 seconds 11.9-14.2 H (test code = 759) INR (BEAKER) (test 1.87 See_Comment [Automat ed message] code = 370) The system Couplewise generated this result transmitted ref erence range: <=5.90. The reference range was not used to int erpret this result as normal/abnormal . Effective 12/15/2018: PT Reference Range ChangeNew: 11.9-14.2 Previous: 11.7- 14.7RECOMMENDED COUMADIN/WARFARIN INR THERAPY RANGESSTANDARD DOSE: 2.0-3.0 Includes: PROPHYLAXIS for venous thrombosis, systemic embolization; TREATMENT for venous thrombosis and/or pulmonary embolus.HIGH RISK: Target INR is2.5-3.5 for patients wiht mechanical heart valves.[id number] 10:54:00 Test Item Value Reference Range Interpretation Comments FIBRINOGEN LEVEL (BEAKER) (test 207 mg/dl 225-434 L code = 658) [id number] 10:54:00 Test Item Value Reference Range Interpretation Comments PARTIAL THROMBOPLASTIN TIME 34.3 seconds 22.5-36.0 (BEAKER) (test code = 760) PLATELET [id number] 10:47:00 Test Item Value Reference Range Interpretation Comments PLATELET COUNT (BEAKER) (test code 90 K/CU MM 150-450 L = 756) Top Edge Beveler ID - [id number] ID - [id number], [id number] 10:40:00 Test Item Value Reference Range Interpretation Comments CALCIUM IONIZED (BEAKER) (test 1.30 mmol/L 1.12-1.27 H code = 698) PH, BLOOD (BEAKER) (test code = 7.38 1810) BLOOD GAS, [id number] 10:38:00 Test Item Value Reference Range Interpretation [...] (BEAKER) (test code = 1819) 100.0 GLUCOSE-STAT [id number] 10:38:00 Test Item Value Reference Range Interpretation Comments GLUCOSE RANDOM (BEAKER) (test code 157 mg/dL 70-110 H = 652) HGB/HCT (H&H) - STAT [id number] 10:38:00 Test Item Value Reference Range Interpretation Comments HEMOGLOBIN (BEAKER) (test code = 10.8 GM/DL 13.0-16.8 L 410) HEMATOCRIT (BEAKER) (test code = 32.0 % 40.0-50.0 L 411) SODIUM NA-STAT [id number] 10:37:00 Test Item Value Reference Range Interpretation Comments SODIUM (BEAKER) (test code = 381) 139 meq/L 136-145 POTASSIUM-STAT [id number] 10:37:00 Test Item Value Reference Range Interpretation Comments POTASSIUM (BEAKER) (test code = 4.2 meq/L 3.6-5.5 379) SODIUM NA-STAT [id number] 10:09:00 Test Item Value Reference Range Interpretation Comments SODIUM (BEAKER) (test code = 381) 139 meq/L 136-145 POTASSIUM-STAT [id number] 10:09:00 Test Item Value Reference Range Interpretation Comments POTASSIUM (BEAKER) (test code = 5.2 meq/L 3.6-5.5 379) BLOOD GAS, [id number] 10:09:00 Test Item Value Reference Range Interpretation [...] (BEAKER) (test code = 1819) 81.0 GLUCOSE-STAT [id number] 10:09:00 Test Item Value Reference Range Interpretation Comments GLUCOSE RANDOM (BEAKER) (test code 167 mg/dL 70-110 H = 652) HGB/HCT (H&H) - STAT [id number] 10:09:00 Test Item Value Reference Range Interpretation Comments HEMOGLOBIN (BEAKER) (test code = 11.2 GM/DL 13.0-16.8 L 410) HEMATOCRIT (BEAKER) (test code = 33.0 % 40.0-50.0 L 411) POTASSIUM-STAT [id number] 09:39:00 Test Item Value Reference Range Interpretation Comments POTASSIUM (BEAKER) (test code = 6.4 meq/L 3.6-5.5 HH 379) Sample not hemolyzedGLUCOSE-STAT [id number] 09:37:00 Test Item Value Reference Range Interpretation Comments GLUCOSE RANDOM (BEAKER) (test code 208 mg/dL 70-110 H = 652) HGB/HCT (H&H) - STAT [id number] 09:37:00 Test Item Value Reference Range Interpretation Comments HEMOGLOBIN (BEAKER) (test code = 10.1 GM/DL 13.0-16.8 L 410) HEMATOCRIT (BEAKER) (test code = 30.0 % 40.0-50.0 L 411) SODIUM NA-STAT [id number] 09:37:00 Test Item Value Reference Range Interpretation Comments SODIUM (BEAKER) (test code = 381) 133 meq/L 136-145 L BLOOD GAS, [id number] 09:36:00 Test Item Value Reference Range Interpretation [...] (BEAKER) (test code = 1819) 74.0 POTASSIUM-STAT [id number] 09:04:00 Test Item Value Reference Range Interpretation Comments POTASSIUM (BEAKER) (test code = 4.9 meq/L 3.6-5.5 379) BLOOD GAS, [id number] 09:04:00 Test Item Value Reference Range Interpretation [...] (test code = 1819) 60.0 SODIUM NA-STAT [id number] 09:04:00 Test Item Value Reference Range Interpretation Comments SODIUM (BEAKER) (test code = 381) 133 meq/L 136-145 L GLUCOSE-STAT [id number] 09:04:00 Test Item Value Reference Range Interpretation Comments GLUCOSE RANDOM (BEAKER) (test code 184 mg/dL 70-110 H = 652) HGB/HCT (H&H) - STAT [id number] 09:04:00 Test Item Value Reference Range Interpretation Comments HEMOGLOBIN (BEAKER) (test code = 10.9 GM/DL 13.0-16.8 L 410) HEMATOCRIT (BEAKER) (test code = 32.0 % 40.0-50.0 L 411) BLOOD GAS, [id number] 08:02:00 Test Item Value Reference Range Interpretation [...] (BEAKER) (test code = 1819) 100.0 CALCIUM, [id number] 08:02:00 Test Item Value Reference Range Interpretation Comments CALCIUM IONIZED (BEAKER) (test 1.20 mmol/L 1.12-1.27 code = 698) PH, BLOOD (BEAKER) (test code = 7.42 1810) SODIUM NA-STAT [id number] 08:01:00 Test Item Value Reference Range Interpretation Comments SODIUM (BEAKER) (test code = 381) 139 meq/L 136-145 POTASSIUM-STAT [id number] 08:01:00 Test Item Value Reference Range Interpretation Comments POTASSIUM (BEAKER) (test code = 4.3 meq/L 3.6-5.5 379) HGB/HCT (H&H) - STAT [id number] 08:01:00 Test Item Value Reference Range Interpretation Comments HEMOGLOBIN (BEAKER) (test code = 14.3 GM/DL 13.0-16.8 410) HEMATOCRIT (BEAKER) (test code = 42.0 % 40.0-50.0 411) GLUCOSE-STAT [id number] 08:01:00 Test Item Value Reference Range Interpretation Comments GLUCOSE RANDOM (BEAKER) (test code 110 mg/dL 70-110 = 652) RAD, CHEST, 1 VIEW, NON [id number] 07:25:00Reason for exam:->Preop screenShould this be performed at the bedside?->Yes [facility] : 1940 Sex: MFINAL REPORT INDICATION: Preop screen COMPARISON: None TECHNIQUE: Single frontal view of the chest. FINDINGS: Lungs and pleura: Clear lungs. No effusion.Heart and mediastinum: Normal heart size. Unremarkable mediastinal contours.Osseous structures: No acute abnormality.Other: None. IMPRESSION: No acute intrathoracic abnormality. Signed: Precious Greenberg Verified Date/Time: 10/02/2020 07:25:50 Reading Location: [facility] Radiology Reading Room SARS-COV2/RT-PCR ([facility])2020-09-29 02:08:00 Test Item Value Reference Range Interpretation Comments SARS-COV2/RT-PCR (test Negative Not Detected, Negative, code = 2228374) See external report for linked test SARS-COV-2 PERFORMING LAB [facility] (test code = 0551857) Negative result for this test determines that [...] the Steinberg SARS-CoV-2 assay.Fact Sheet for Healthcare Providers:https://www.[employer].steinberg/boy/ CX_AMJI-VfA-4_EKY_Lpyr_Bsenk_76-932398.pdfFact Sheet for Healthcare Patients:https://www.[employer] danay/boy/UT_EPEZ-RsP-1_Tefggrs_Rqqh_Auqda_TJ_40-251640G8.pdfPerforming Laboratory:[address] [address] HEMOGLOBIN [id number] 13:34:00 Test Item Value Reference Range Interpretation Comments HEMOGLOBIN A1C (BEAKER) (test code = 5.8 % 4.3-6.1 368) COMPREHENSIVE METABOLIC [id number] 13:00:00 Test Item Value Reference Range Interpretation [...] 347) EGFR (BEAKER) (test 69 mL/min/1.73 ESTIMA NORMA GFR IS code = 1092) sq m NOT ACCURATE CREATININE CLEARANCE IN PREDICTING GLOMERULAR FILTRATION RATE . ESTIMATED GFR I S NOT APPLICABLE FOR DIALYSIS PATIEN TS. Top Edge Beveler ID - [id number] 13:00:00 Test Item Value Reference Range Interpretation Comments MAGNESIUM (BEAKER) (test code = 2.1 mg/dL 1.6-2.6 627) [employer] Edge Beveler ID - RMLIPID [id number] 13:00:00 Test Item Value Reference Range Interpretation [...] Borderline 130-159 High 160-189 Very High >=190 [employer] Beveler ID - [id number] 12:49:00 Test Item Value Reference Range Interpretation Comments PARTIAL THROMBOPLASTIN TIME 33.9 seconds 22.5-36.0 (BEAKER) (test code = 760) PROTHROMBIN [id number] 12:48:00 Test Item Value Reference Range Interpretation Comments PROTIME (BEAKER) 13.4 seconds 11.9-14.2 (test code = 759) INR (BEAKER) (test 1.06 See_Comment [Automat ed message] code = 370) The system Couplewise generated this result transmitted ref erence range: [...] mechanical heart valves.CBC W/PLT COUNT & AUTO [id number] 12:46:00 Test Item Value Reference Range Interpretation [...] % 0-1 PERCENT (BEAKER) (test code = 0821)
[2021-12-09 10:32] LABS: Absolute Lymphocytes (CBC) 1.7 K/uL (0.7-4.9); Hematocrit 43.2 % (39.6-49.0); Lymphocytes % 19.1 % (15.3-44.8); MPV 9.1 fL (7.6-11.3); RBC Red Blood Cell Count 4.94 M/uL (4.33-5.43)
[2021-12-09 10:47] LABS: Albumin 3.6 g/dL (3.4-5.0); Bilirubin Total 0.5 mg/dL (0.2-1.0)
--- NOTE | 2021-12-09 11:47 | RAD REPORT ---
EXAM DESCRIPTION: CTAbdomen Pelvis W Contrast - 12/09/2021 11:32 am CLINICAL HISTORY: Abdominal pain. LLQ abdominal pain COMPARISON: No comparisons TECHNIQUE: Biphasic CT imaging of the abdomen and pelvis was performed with 100 ml non-ionic IV cont rast. All CT scans are performed using dose optimization technique as appropriate and may include automated exposure control or mA/KV adjustment according to patient size. FINDINGS: The lung bases are clear. The liver, spleen, pancreas, adrenal glands and left kidney are within normal limits. No right-sided hydronephrosis. There is an exophytic cyst present lateral right kidney measuring 17 mm. Suspected ca lculus measuring 4 mm is present distal right ureter without significant hydronephrosis. No bowel obstruction, free air, free fluid or abscess. Moderate size left inguinal hernia is present containing inflamed fat and segment of the sigmoid colon. Diverticulosis is present distal sigmoid. No evidence of significant lymphadenopathy. Moderate lumbar degenerative changes. IMPRESSION: Moderate left inguinal hernia containing sigmoid colon and mildly inflamed fat. Sigmoid diverticulosis coli is also present. 4 mm calculus suspected distal right ureter without significant hydronephrosis.
[2021-12-09] MEDS ORDERED: MORPHINE 4 MG/ML SYR ONE (12:12)
[2021-12-09] MEDS ORDERED: DIAZEPAM 10 MG/2 ML INJ SYRINGE ONE (12:13)
[2021-12-09] MEDS ORDERED: ONDANSETRON 4 MG/2 ML VIAL ONE (12:13)
--- NOTE | 2021-12-09 13:20 | ER ---
Nurse's Notes [facility] Name: Marc Dillard Age: 81 yrs Sex: Male : 1940 Arrival Date: 12/09/2021 Time: 09:44 Bed 30 Private MD: Luis F Wick E Diagnosis: Unilateral inguinal hernia, without obstruction or gangrene Presentation: 12/09 09:55 Chief complaint: Patient states: "I am having this hernia pain. no nausea and vomiting. jd3 I have had this hernia for awhile, but it has just started causing pain in the past couple of weeks.". Coronavirus screen: At this time, the client does not indicate any symptoms associated with coronavirus-19. Ebola Screen: No symptoms or risks identified at this time. Initial Sepsis Screen: Does the patient meet any 2 criteria? No. Patient's initial sepsis screen is negative. Does the patient have a suspected source of infection? No. Patient's initial sepsis screen is negative. Risk Assessment: Do you want to hurt yourself or someone else? Patient reports no desire to harm self or others. Onset of symptoms was December 09, 2021. 09:55 Method Of Arrival: Ambulatory jd3 09:55 Acuity: RADHA 3 jd3 Historical: - Allergies: 09:57 PENICILLINS; jd3 - Home Meds: 09:57 aspirin 81 mg Oral TbEC 1 tab once daily [Active]; carvedilol 25 mg Oral tab 1 tab 2 jd3 times per day [Active]; simvastatin 40 mg Oral tab once daily [Active]; - PMHx: 09:57 High Cholesterol; Hypertension; jd3 - PSHx: 09:57 open heart SX; Stented artery; jd3 - Immunization history:: Adult Immunizations up to date, Client reports receiving the 2nd dose of the Covid vaccine, Flu vaccine is up to date. - Social history:: Smoking status: Patient reports use of chewing tobacco. Screenin:00 Abuse screen: Denies threats or abuse. Nutritional screening: No deficits noted. aa5 Tuberculosis screening: No symptoms or risk factors identified. Fall Risk None identified. Assessment: 10:00 General: Appears comfortable, Behavior is calm, cooperative. Pain: Complains of pain in aa5 left groin Pain currently is 0 out of 10 on a pain scale. Aggravated by Pt reports pain only with movement. Neuro: Level of Consciousness is awake, alert, obeys commands, Oriented to person, place, time, situation. Cardiovascular: Heart tones S1 S2 present Rhythm is regular. Respiratory: Airway is patent Respiratory effort is even, unlabored, Respiratory pattern is regular, symmetrical. GI: Abdomen is round non-distended, Bowel sounds present X 4 quads. Abd is soft and non tender X 4 quads. Reports constipation, last BM was 12/05/21 Patient currently denies nausea, vomiting. : No signs and/or symptoms were reported regarding the genitourinary system. EENT: No signs and/or symptoms were reported regarding the EENT system. Derm: Skin is pink, warm \\T\\ dry. Musculoskeletal: Range of motion: intact in all extremities. 10:08 Reassessment: Patient is alert, oriented x 3, equal unlabored respirations, skin aa5 warm/dry/pink. Awaiting CT, pt notified of wait time. . Pain: Pain currently is 0 out of 10 on a pain scale. 11:10 Reassessment: Patient is alert, oriented x 3, equal unlabored respirations, skin aa5 warm/dry/pink. Patient denies pain at this time. Awaiting CT scan . 12:20 Reassessment: Pt drowsy after Valium administration, easy to awaken to verbal stimuli, aa5 A\\T\\O x 4, relaxed respirations. . 12:40 Reassessment: Pt resting in bed with eyes closed, drowsy but easy to awaken to verbal aa5 stimuli, relaxed respirations. . 13:15 Reassessment: Patient is alert, oriented x 3, equal unlabored respirations, skin aa5 warm/dry/pink. 13:30 Reassessment: Patient is alert, oriented x 3, equal unlabored respirations, skin aa5 warm/dry/pink. Vital Signs: 09:57 BP 150 / 71; Pulse 67; Resp 17 S; Temp 97.9(TE); Pulse Ox 99% on R/A; Weight 81.65 kg jd3 (R); Height 5 ft. 9 in. (175.26 cm) (R); Pain 3/10; 11:56 BP 177 / 74; Pulse 75; Resp 15; Pulse Ox 100% ; aa5 12:20 BP 161 / 80; Pulse 78; Resp 12 S; Pulse Ox 96% on R/A; aa5 13:00 BP 150 / 82; Pulse 70; Resp 14 S; Temp 98.0(TE); Pulse Ox 98% on R/A; aa5 09:57 Body Mass Index 26.58 (81.65 kg, 175.26 cm) jd3 ED Course: 09:44 Patient arrived in ED. am2 09:44 Luis F Wick MD is Private Physician. am2 09:45 [facility] jmm 09:45 Isaiah Buitrago DO is Attending Physician. jmm 09:48 Evie Sandra, GRAZYNA is Primary Nurse. aa5 09:56 Triage completed. jd3 09:58 Arm band placed on. jd3 10:00 Patient has correct armband on for positive identification. Placed in gown. Bed in low aa5 position. Call light in reach. Side rails up X2. Adult w/ patient. Pulse ox on. NIBP on. 10:05 Initial lab(s) drawn, by me, sent to lab. Inserted saline lock: 20 gauge in right aa5 forearm, using aseptic technique. Blood collected. 11:34 CT Abd/Pelvis - IV Contrast Only In Process Unspecified. EDMS 12:20 Hernia reduction to left groin completed by ROSA MARIA Boston. Pt tolerated well. aa5 13:19 Neri Crockett MD is Referral Physician. jmm 13:30 IV discontinued, intact, bleeding controlled, No redness/swelling at site. Pressure aa5 dressing applied. Administered Medications: 12:05 Drug: Zofran (Ondansetron) 4 mg Route: IVP; Site: right forearm; aa5 12:10 Follow up: Response: No adverse reaction aa5 12:07 Drug: morphine 4 mg Route: IVP; Site: right forearm; aa5 12:10 Follow up: Response: No adverse reaction aa5 12:10 Follow up: Response: No adverse reaction aa5 12:10 Drug: Valium (diazepam) 2.5 mg Route: IVP; Site: right forearm; aa5 12:14 Follow up: Response: No adverse reaction aa5 12:15 Drug: Valium (diazepam) 2.5 mg Route: IVP; Site: right forearm; aa5 12:20 Follow up: Response: RASS: Drowsy (-1) aa5 Outcome: 13:19 Discharge ordered by MD. babcock 13:33 Discharged to home via wheelchair, with significant other. aa5 13:33 Condition: stable 13:33 Discharge instructions given to patient, significant other, Instructed on discharge instructions, follow up and referral plans. medication usage, Demonstrated understanding of instructions, follow-up care, medications, Prescriptions given X 2. 13:36 Patient left the ED. aa5 Signatures: Dispatcher [employer] EDMS Rosendo Keene PA PA jmm Calderon, Audri, RN RN aa5 Tabitha Grande RN RN jl7 Aparna Long am2 Armond Taylor RN RN jd3 Corrections: (The following items were deleted from the chart) 12:31 11:56 BP 177 / 74; Pulse 15bpm; Resp 15bpm; Pulse Ox 100%; jl7 aa5 19:57 12:20 Hernia reduction to left groin completed by ROSA MARIA Boston aa5 aa5 19:57 12:20 Reassessment: Patient is alert, oriented x 3, equal unlabored respirations, skin aa5 warm/dry/pink. aa5
--- NOTE | 2021-12-09 13:20 | EDPHYS ---
Physician Documentation [facility] Name: Marc Dillard Age: 81 yrs Sex: Male : 1940 Arrival Date: 12/09/2021 Time: 09:44 Bed 30 Private MD: Luis F Wick E ED Physician Isaiah Buitrago HPI: 12/09 09:58 This 81 yrs old Male presents to ER via Ambulatory with complaints of hernia pain. jmm 09:58 The patient presents with swelling. Onset: The symptoms/episode began/occurred jmm gradually. Is a 81-year-old male with history of hyperlipidemia and hypertension the presents emerged department with complaints of left inguinal swelling which has been ongoing for months but is worsened over the past week. Denies vomiting, nausea, fever.. Historical: - Allergies: 09:57 PENICILLINS; jd3 - Home Meds: 09:57 aspirin 81 mg Oral TbEC 1 tab once daily [Active]; carvedilol 25 mg Oral tab 1 tab 2 jd3 times per day [Active]; simvastatin 40 mg Oral tab once daily [Active]; - PMHx: 09:57 High Cholesterol; Hypertension; jd3 - PSHx: 09:57 open heart SX; Stented artery; jd3 - Immunization history:: Adult Immunizations up to date, Client reports receiving the 2nd dose of the Covid vaccine, Flu vaccine is up to date. - Social history:: Smoking status: Patient reports use of chewing tobacco. ROS: 09:58 Constitutional: Negative for fever, chills, and weight loss, Cardiovascular: Negative jmm for chest pain, palpitations, and edema, Respiratory: Negative for shortness of breath, cough, wheezing, and pleuritic chest pain. 09:58 : Positive for of the pelvis. 09:58 All other systems are negative. Exam: 09:58 Constitutional: This is a well developed, well nourished patient who is awake, alert, jmm and in no acute distress. Head/Face: atraumatic. Eyes: EOMI, no conjunctival erythema appreciated ENT: Moist Mucus Membranes Neck: Trachea midline, Supple Chest/axilla: Normal chest wall appearance and motion. Cardiovascular: Regular rate and rhythm. No edema appreciated Respiratory: Normal respirations, no respiratory distress appreciated 09:58 Skin: General appearance color normal MS/ Extremity: Moves all extremities, no obvious deformities appreciated, no edema noted to the lower extremities Neuro: Awake and alert Psych: Behavior is normal, Mood is normal, Patient is cooperative and pleasant 09:58 Abdomen/GI: Left inguinal swelling appreciated. Vital Signs: 09:57 BP 150 / 71; Pulse 67; Resp 17 S; Temp 97.9(TE); Pulse Ox 99% on R/A; Weight 81.65 kg jd3 (R); Height 5 ft. 9 in. (175.26 cm) (R); Pain 3/10; 11:56 BP 177 / 74; Pulse 75; Resp 15; Pulse Ox 100% ; aa5 12:20 BP 161 / 80; Pulse 78; Resp 12 S; Pulse Ox 96% on R/A; aa5 13:00 BP 150 / 82; Pulse 70; Resp 14 S; Temp 98.0(TE); Pulse Ox 98% on R/A; aa5 09:57 Body Mass Index 26.58 (81.65 kg, 175.26 cm) jd3 MDM: 09:58 Patient medically screened. [facility] 13:18 Data reviewed: vital signs, nurses notes. Counseling: I had a detailed discussion with [facility] the patient and/or guardian regarding: the historical points, exam findings, and any diagnostic results supporting the discharge/admit diagnosis, lab results, radiology results. ED course: The left inguinal hernia was reduced, patient does have some relief. I discussed the patient's case with Dr. Crockett whom recommended admission and will perform surgery in the morning. I discussed the conversation with the patient whom would prefer to follow-up in clinic. Patient and given strict return precautions., They understand and agree with plan of care. 12/09 10:00 Order name: CBC with Diff; Complete Time: 10:33 [facility] 12/09 10:00 Order name: CMP; Complete Time: 10:48 [facility] 12/09 10:00 Order name: Lipase; Complete Time: 10:48 [facility] 12/09 10:00 Order name: CT Abd/Pelvis - IV Contrast Only; Complete Time: 11:49 [facility] 12/09 10:00 Order name: IV Saline Lock; Complete Time: 10:06 [facility] 12/09 10:00 Order name: Labs collected and sent; Complete Time: 10:06 [facility] Administered Medications: 12:05 Drug: Zofran (Ondansetron) 4 mg Route: IVP; Site: right forearm; aa5 12:10 Follow up: Response: No adverse reaction aa5 12:07 Drug: morphine 4 mg Route: IVP; Site: right forearm; aa5 12:10 Follow up: Response: No adverse reaction aa5 12:10 Follow up: Response: No adverse reaction aa5 12:10 Drug: Valium (diazepam) 2.5 mg Route: IVP; Site: right forearm; aa5 12:14 Follow up: Response: No adverse reaction aa5 12:15 Drug: Valium (diazepam) 2.5 mg Route: IVP; Site: right forearm; aa5 12:20 Follow up: Response: RASS: Drowsy (-1) aa5 Disposition: 18:20 Co-signature as Attending Physician, Isaiah TORRES was immediately available on-site ms3 in the Emergency Department for consultation in the care of the patient.. Disposition Summary: 12/09/21 13:19 Discharge Ordered Location: Home [facility] Condition: Stable [facility] Diagnosis - Unilateral inguinal hernia, without obstruction or gangrene [facility] Followup: [facility] - With: Neri Crockett MD - When: 2 - 3 days - Reason: Recheck today's complaints, Continuance of care, Re-evaluation by your physician Discharge Instructions: - Discharge Summary Sheet [facility] - Inguinal Hernia, Adult [facility] Forms: - Medication Reconciliation Form [facility] - Thank You Letter [facility] - Antibiotic Education [facility] - Prescription Opioid Use [facility] Prescriptions: - Colace 100 mg Oral Tablet - take 1 tablet by ORAL route every 12 hours; 14 tablet; Refills: 0, Product [facility] Selection Permitted - Ultracet 37.5-325 mg Oral Tablet - take 1 tablet by ORAL route every 6 hours - for up to 5 days; do not exceed 8 jmm tablets per day.; 12 tablet; Refills: 0, Product Selection Permitted Signatures: Dispatcher [employer] Rosendo Mckeon PA PA jmm Calderon, Audri RN RN aa5 Armond Taylor RN RN jd3 Isaiah Buitrago DO DO ms3
[2021-12-09 13:47] VITALS: TEMP 97.9
[2021-12-09 13:48] VITALS: BP 177/74; O2SAT 100
== END 2021-12-09 13:36 | disposition home or self-care (01) ==
LOC: ER 09:38
DX: K40.90 Unilateral inguinal hernia, without obstruction or gangrene, not specified as recurrent (principal); I10 Essential (primary) hypertension; E78.00 Pure hypercholesterolemia, unspecified; F17.220 Nicotine dependence, chewing tobacco, uncomplicated; Z79.82 Long term (current) use of aspirin; Z88.0 Allergy status to penicillin
CPT/HCPCS: 85025; 36415; 83690; 80053; 74177; 96375; 96374; 99284; Q9967; J3360; J2405

== ENCOUNTER → 2021-12-18 | Day surgery (SDC) | payer OTHER ==
[~2021-12-18] MED LIST changes: +CIPROFLOXACIN 400mg IV 400 MG/200 ML BAG IV ONE; +EPHEDRINE SULF 50 MG/ML VIAL ONE; +FENTANYL CITR 100 MCG/2 ML ONE; +GLYCOPYRROLATE 0.2 MG/ML SYR ONE; +LIDOCAINE 2% MPF 5 ML VIAL ONE; +MIDAZOLAM HCL 2 MG/2 ML INJ ONE; -NA CHLORIDE 0.9% 500 ML ONE; +NEOSTIGMINE 1 MG/ML -10 ML VIAL ONE; +ONDANSETRON 4 MG/2 ML VIAL ONE; +ROCURONIUM 50 MG/5 ML VIAL IV ONE; +Ringers Lactate 1,000 ML IV ONE; +propofoL 200 MG/20 ML VIAL IV ONE
--- NOTE | 2021-12-18 08:40 | RAD REPORT ---
EXAM DESCRIPTION: RAD - Chest Pa And Lat (2 Views) - 12/18/2021 8:26 am CLINICAL HISTORY: Pre op pending hernia surgery Chest pain. COMPARISON: Chest Pa And Lat (2 Views) dated 09/13/2020; Chest Single View dated 10/31/2019; Chest Pa And Lat (2 Views) dated 05/30/2019; Chest Single View dated 10/01/2016 FINDINGS: The lungs are clear. The heart is normal in size. No displaced fractures. Sternotomy wires . IMPRESSION: No acute or concerning finding suspected.
--- NOTE | 2021-12-18 13:00 | EKG ---
Test Date: 2021-12-18 Test Time: 08:11:05 Nurse Practitioner Home Assessments: SCOTTIE MEASUREMENT RESULTS: Intervals: Rate: 59 MD: 180 QRSD: 92 QT: 438 QTc: 433 [place]: P: 66 MD: 180 QRS: 66 T: 45 INTERPRETIVE STATEMENTS: Sinus bradycardia Otherwise normal ECG Compared to ECG 09/13/2020 09:49:06 No significant changes Electronically Signed On 12-18-21 12:59:40 CDT by Keshav Lyman
--- NOTE | 2021-12-18 13:23 | P.BOP ---
Preoperative diagnosis: incarcerated left inguinal hernia Postoperative diagnosis: same Primary procedure: Open repair of incarcerated left inguinal hernia with mesh Shipboard Intelligence Analyst: KANCHAN CALLAHAN ([employer]) Estimated blood loss: <10cc Specimen: sac and lipoma Findings: see dicta Anesthesia: General Complications: None Implants: large mesh system Transferred to: Recovery Room Condition: Good
[2021-12-18 14:07] VITALS: BP 150/71; TEMP 95.7; O2SAT 99
--- NOTE | 2021-12-19 02:12 | OP ---
Date of Procedure: 12/18/2021 Surgeon: Neri Crockett MD Executive Recruiter: OCHOA Singh. Diagnosis: Incarcerated left inguinal hernia. Postoperative Diagnosis: Incarcerated left inguinal hernia. Procedure: Open repair of incarcerated left inguinal hernia with mesh. Estimated Blood Loss: Less than 10 cc. Specimens: Sac and lipoma of the cord. Findings: Incarcerated omentum, but viable. Anesthesia: General plus local. Implant: Large mesh system. Description Of Procedure: This is a case of a male who comes to us with an incarcerated left inguina l hernia. The patient was seen in the ER not too long ago. They had partially reduced that hernia, still has a lump in that area. He still is having incarceration, unable to be reduce. We explained to the patient the options of open repair of left inguinal hernia with mesh with benefits, alternativ es, and risks including, but not limited to infection, bleeding, damage to adjacent structures, anest hesia complication, recurrence, MA, and even . He also understands this may not relieve any sym ptoms. He might need more than one surgical intervention. He understood and signed a consent. Description Of Procedure: The patient was brought to the operating room, placed in supine position. Anesthesia was done without complication. Abdominal area was prepped and draped in usual sterile fa shion. A time-out was called. Incision was made in the left inguinal region going through the Scarp a's fascia until we find external oblique aponeurosis and we opened that in the direction of the fibe rs to connect to the superficial inguinal ring. The ilioinguinal nerve, iliohypogastric nerve was id entified protected behind external oblique aponeurosis. Jarreau placed around the spermatic cord. I mmediately, we noticed to have this large hernia sac with incarcerated tissue, so we proceeded to car efully remove that hernia sac, holding the content to make sure we inspected before get reduced and p rotected spermatic cord structures all time. Once we opened the hernia sac, we noticed omentum, but it is still viable, so we were able to reduce that into the abdominal cavity. Then under direct visu alization, suture ligated this after twisting the hernia sac and suture ligated with Prolene x2. The hernia sac was sent out for evaluation. Lipoma of the cord was also ligated with 0 chromic. The sp ermatic cord structures were protected at all times. At that moment, we placed a mesh plug over the deep inguinal ring, securing that in place with VersaTack sutures and the mesh sheet on the floor of the canal, securing that with VersaTack stapling device to the pubic tubercle with shelving edge of t he inguinal ligament, transversalis fascia, and the tails looped around the spermatic cord without st rangulation. The area was irrigated. No bleeding. At that moment, I proceeded to bring the inguina l nerve, iliohypogastric nerve back into the inguinal canal, reconstructed the superficial inguinal r ing and closed the external oblique aponeurosis with Prolene stitches making sure the nerves were not included. The area was irrigated. Kamlesh fascia closed with 3-0 chromic and the skin was approxima norma with beni. Sponge count, instrument counts correct. The patient tolerated the procedure well . The patient was sent to Recovery in stable condition. JING/ANDRIY Voice ID: [id number] Report ID: [id number]
--- NOTE | 2021-12-19 02:18 | DS ---
Diagnosis: Incarcerated left inguinal hernia. Procedure: Open repair of incarcerated left inguinal hernia with mesh. Disposition: Home. Activity: As tolerated. No heavy lifting. Follow up in my office in 1 week. Call for appointment a t [phone]. Keep area dry for 48 hours, then may shower. Keep beni intact. Cold compress over t he inguinal region for 24 hours. JING/ANDRIY Voice ID: [id number] Report ID: [id number]
== END ==
LOC: OR 08:37
PROVIDERS: ATTEND Surgery
PROC: 0YU60JZ Supplement Left Inguinal Region with Synthetic Substitute, Open Approach (ICD-10-PCS; principal; 2021-12-18 10:45)
DX: K40.30 Unilateral inguinal hernia, with obstruction, without gangrene, not specified as recurrent (principal); Z20.822 Contact with and (suspected) exposure to COVID-19; I10 Essential (primary) hypertension; E78.00 Pure hypercholesterolemia, unspecified
CPT/HCPCS: 71046; 88302; 93005; J0744; J2250; J2405; J2704; J2710; J3010; J7120; U0003

== ENCOUNTER → 2023-11-30 | Day surgery (SDC) | payer OTHER ==
--- NOTE | 2023-11-30 14:24 | RAD REPORT ---
EXAM DESCRIPTION: US - Guided FNA Non Breast - 11/30/2023 10:19 am CLINICAL HISTORY: E04.1 COMPARISON: Thyroid Para Parotid Gland dated 10/15/2023 FINDINGS: Preoperative diagnosis: Right thyroid nodule. Post operative diagnosis: Same. Conscious Sedation: None Fluoroscopy time: None Contrast used: None Estimated blood loss: Minimal Specimens:Has been Informed consent was obtained following discussion of the relevant risks and benefits with the patien t. Time-out procedure was performed. The anterior neck was prepped and draped in the usual sterile fa shion. 1% lidocaine was infiltrated into the subcutaneous tissues for local anesthesia. Real time ult rasound scanning of the right thyroid lobe demonstrated the dominant 3.2 cm nodule. Under ultrasound guidance, using a variety of long and short 25 gauge needles, 5 - specimens were obtained of this les ion and sent to pathology for evaluation. There were no complications. IMPRESSION: Successful ultrasound-guided right thyroid nodule fine-needle aspiration biopsy/ cytolog y.
== END ==
LOC: FNA 08:00
PROVIDERS: ATTEND Internal Medicine
PROC: 0GBH3ZX Excision of Right Thyroid Gland Lobe, Percutaneous Approach, Diagnostic (ICD-10-PCS; principal; 2023-11-30)
DX: E04.1 Nontoxic single thyroid nodule (principal)
CPT/HCPCS: 88162